=== PATIENT | female | born 1955 | race Caucasian/White ===

== ENCOUNTER → 2020-07-18 14:29 | Outpatient (CLI) | payer BC, SELFPAY ==
--- NOTE | ~2020-07-18 | XR_ITS ---
XR lumbar spine 2-3V DATE: 07/18/2020 14:49 INDICATION: Back pain TECHNIQUE: AP, lateral, coned lateral lumbosacral views COMPARISON: 07/30/2015 lumbar spine FINDINGS: Diffuse osteopenia. There is degenerative spurring of the lower thoracic spine. There is m ild degenerative spurring of the lumbar spine but the lumbar and lumbosacral interspaces are relative ly preserved. Prominent degenerative change at the apophyseal joints in the lower lumbar and lumbosac ral area. No fracture or bone destruction is evident. The included lower thoracic and lumbar pedicles are intac t. The sacroiliac joints are normal. There is extensive calcification of the abdominal aorta and iliac arteries, without apparent aneurysm . IMPRESSION: Degenerative changes Osteopenia Reviewed, dictated and finalized at location B.
--- NOTE | ~2020-07-18 | XR_ITS ---
XR chest 2V DATE: 07/18/2020 14:49 INDICATION: Cough and back pain. No injury. TECHNIQUE: PA and lateral views COMPARISON: 03/22/2016 2 view chest FINDINGS: Normal heart size. No hilar or mediastinal enlargement. No pulmonary infiltrate or consolid ation, pleural effusion or pulmonary vascular congestion or pneumothorax. Degenerative spurring of the thoracic spine. IMPRESSION: No active cardiopulmonary disease Reviewed, dictated and finalized at location B.
== END ==
PROVIDERS: PCP Emergency Medicine; Visit Provider Emergency Medicine
DX: R05 Cough (principal); M54.5 Low back pain; M85.88 Other specified disorders of bone density and structure, other site
CPT/HCPCS: 71046; 72100

== ENCOUNTER 2020-08-29 07:52 | Outpatient (CLI) | payer BC, SELFPAY ==
--- NOTE | ~2020-08-29 | CT_ITS ---
EXAMINATION: CT lung screening DATE: 08/29/2020 10:39 INDICATION: TOBACCO USE TECHNIQUE: Computed tomography (CT) of the chest was performed without intravenous contrast. Addition al 3D reconstructions utilizing coronal maximum intensity projection (MIP) were performed. Automated exposure control and iterative reconstruction technique were employed. The dose-length product was 70 .01 mGy-cm. COMPARISON: None FINDINGS: Minimal emphysema at the right apex. No suspicious pulmonary nodules, pulmonary edema or other pulmon francisco infiltrates, pleural effusion or pneumothorax. Heart size is normal. Atherosclerotic coronary art anitha calcific calcification is. No pericardial effusion. Aortic valve callus calcification. Thoracic a ania is normal in caliber. No pathologically enlarged thoracic lymphadenopathy. 1.5 cm left renal cys t. There are bridging osteophytes at multiple levels in the spine, consistent with diffuse idiopathic skeletal hyperostosis (DISH). IMPRESSION: 1. Lung-RADS category 1: Negative. Continue annual screening with noncontrast low-dose chest CT in 12 months. 2. Minimal emphysema. Reviewed, dictated and finalized at location H. NT RESOLUTION SPECIALIST IMPRESSION: 1. Lung-RADS category 1: Negative. Continue annual screening with noncontrast l ow-dose chest CT in 12 months. 2. Minimal emphysema.
--- NOTE | ~2020-08-29 | DEXA_ITS ---
Bone Density Report Name: Ness Arreaga Age: 65 Sex: Female Ethnicity: White Date of : 1955 Indication: postmenopausal; height loss; Referring Provider: Asif Donald Study: Bone densitometry was performed. Exam Date: August 29, 2020 Accession number: [id number] Bone Density: Region BMD T-score Z-score Classification AP Spine (L1-L4) 0.993 -0.5 1.2 Normal Femoral Neck (Left) 0.700 -1.3 0.1 Osteopenia Total Hip (Left) 0.871 -0.6 0.6 Normal Total Hip Bilateral Avg 0.855 -0.8 0.5 Normal Femoral Neck (Right) 0.613 -2.1 -0.7 Osteopenia Total Hip (Right) 0.837 -0.9 0.3 Normal World Health Organization criteria for BMD impression classify patients as: Normal (T-score at or above -1.0), Osteopenia (T-score between -1.0 and -2.5), or Osteoporosis (T-score at or below -2.5). 10-year Fracture Risk(1): Major Osteoporotic Fracture 10% Hip Fracture 2.5% Reported Risk Factors: [place] (), Neck BMD=0.613, BMI=22.8, smoking (1) FRAX(R) Version 3.08. Fracture probability calculated for an untreated patient. Fracture probability may be lower if the patient has received treatment. Previous Exams: Region Exam Age BMD T-score BMD Change BMD Change Date g/cm2 vs Baseline vs Previous AP Spine(L1-L4) 08/29/2020 65 0.993 -0.5 -0.026(-2.6%)* -0.026(-2.6%)* 08/20/2015 60 1.019 -0.3 Total Hip(Left) 08/29/2020 65 0.871 -0.6 -0.091(-9.4%)* -0.091(-9.4%)* 08/20/2015 60 0.961 0.2 Total Hip(Right) 08/29/2020 65 0.837 -0.9 -0.066(-7.3%)* -0.066(-7.3%)* 08/20/2015 60 0.902 -0.3 *Denotes significance at 95% confidence level, LSC for AP Spine = 0.022 g/cm2, LSC for Total Hip = 0.027 g/cm2 Clinical Information Provided by Patient: Smokes Has used the following medications: Vitamin D, Calcium Patient maximum height was 66 Menopause Age: 42 Drinks caffeinated beverages Onset of menses at age 11 Number of children 2 Impression: The patient has low bone mass, based on the Right Femoral Neck T-score. The patient has an estimated ten-year risk of hip fracture of 2.5% and an estimated ten-year risk of major fracture of 10%, based on the WHO FRAX algorithm. The patient has risk factors, including: smoking. The BMD for the AP Spine(L1-L4) decreased, changing by -2.6% since the last DXA exam. The BMD for the Total Hip(Left) decreased, changing by -9.4% since the last DXA exam. The BMD for the Total Hip(Right) decreased, changing by -7.3% si
--- NOTE | ~2020-08-29 | MM_ITS ---
EXAMINATION: MM screening [facility] BI w geovanna HISTORY: Screening mammogram TECHNIQUE: Craniocaudal and mediolateral oblique 3-D tomosynthesis images were obtained and synthetic 2-D images were generated. CAD analysis was submitted and interpreted. COMPARISON: 09/22/2018, 08/10/2018, 08/20/2015 BREAST PARENCHYMAL COMPOSITION: There are scattered areas of fibroglandular density. FINDINGS: There is no evidence of suspicious mass, calcification, or architectural distortion to sugg est malignancy in either breast. There has been no suspicious interval change. IMPRESSION: 1. No mammographic evidence of malignancy. 2. Recommend routine screening mammography in one year. BI-RADS Category 1: Negative Reviewed, dictated and finalized at location A. RTAKER HELPER
== END 2020-08-29 07:53 | disposition home or self-care (01) ==
PROVIDERS: PCP Emergency Medicine; Visit Provider Emergency Medicine
DX: Z12.31 Encounter for screening mammogram for malignant neoplasm of breast (principal); J45.909 Unspecified asthma, uncomplicated; Z78.0 Asymptomatic menopausal state; M85.852 Other specified disorders of bone density and structure, left thigh; M85.851 Other specified disorders of bone density and structure, right thigh; Z72.0 Tobacco use
CPT/HCPCS: 77063; 77067; 77080; G0297

== ENCOUNTER 2021-09-30 09:18 | Outpatient (CLI) | payer OTHER, SELFPAY ==
--- NOTE | ~2021-09-30 | US_ITS ---
EXAMINATION: US aorta DATE: 09/30/2021 09:49 INDICATION: Extensive calcification of the abdominal aorta, hypertension and diabetes TECHNIQUE: Grayscale, color Doppler, and pulsed Doppler images of the aorta and common iliac arteries were obtained. COMPARISON: None. FINDINGS: Maximum vascular dimensions are as follows: Proximal aorta: 2.7 cm Mid aorta: 1.9 cm Distal aorta: 1.5 cm Right common iliac artery: 1.0 cm Left common iliac artery: 1.1 cm There is no evidence of abdominal aortic aneurysm. IMPRESSION: 1. No sonographic evidence of abdominal aortic aneurysm. Reviewed, dictated and finalized at location A. LEAD ARCHITECT
== END 2021-09-30 09:19 | disposition home or self-care (01) ==
LOC: ANHIMG 09:23
PROVIDERS: PCP Emergency Medicine; Visit Provider Emergency Medicine
DX: I70.0 Atherosclerosis of aorta (principal)
CPT/HCPCS: 76775

== ENCOUNTER 2021-11-13 15:40 | Emergency (ER) | payer OTHER, SELFPAY ==
--- NOTE | ~2021-11-13 | XR_ITS ---
[id number] DATE: 11/13/2021 16:12 INDICATION: Left anterior rib pain following a fall 5 days ago TECHNIQUE: PA chest. 3 views of the left ribs. COMPARISON: 07/18/2022 view chest FINDINGS: Normal heart size. No hilar or mediastinal enlargement. No pulmonary infiltrate or consolidation, pleural effusion or pulmonary vascular congestion or pneumo thorax is detected. Diffuse osteopenia. Diffuse idiopathic skeletal hyperostosis of the thoracic spine. No left rib fracture is evident. IMPRESSION: No detectable left rib fracture Diffuse idiopathic skeletal hyperostosis of the thoracic spine No active cardiopulmonary disease Reviewed, dictated and finalized at Location A. Reviewed, dictated and finalized at location A. COM MANAGER
[2021-11-13 15:53] VITALS: BP 132/65; PULSE 78; RESP 16; TEMP 36.4; O2SAT 99
[2021-11-13 15:55] VITALS: BP 132/65; PULSE 78; RESP 16; TEMP 36.4; O2SAT 99
--- NOTE | 2021-11-13 15:57 | ED.FALL ---
HPI - Fall General Chief Complaint: Fall Stated Complaint: Side Pain Time Seen by Provider: 11/13/21 15:55 Source: patient Mode of arrival: ambulatory Limitations: no limitations History of Present Illness HPI Narrative: Ness Arreaga is a 66 yo female with PMH of OA, HTN, diabetes, high cholesterol, [facility] Doctor's office after a fall over her dog last Tuesday. She has left sided anterior rib pain that is painful on twisting or on deep breath., She is here for an x-ray Related Data Home Medications Medication Instructions Recorded Confirmed acyclovir 11/13/21 alendronate mg PO 11/13/21 amlodipine 11/13/21 glimepiride mg 11/13/21 losartan 11/13/21 paroxetine HCl mg PO 11/13/21 pravastatin 11/13/21 Allergies Allergy/AdvReac Type Severity Reaction Status Date / Time codeine Allergy Unknown Unknown Unverified 11/13/21 15:53 tramadol Allergy Unknown Verified 11/13/21 15:53 Review of Systems Review of Systems: CONSTITUTIONAL: Denies fever, chills, sweats. EYES: Denies visual changes, redness, discharge. ENT: Denies rhinorrhea, congestion, sore throat, otalgia. CARDIOVASCULAR: Denies chest pain, palpitations, edema. RESPIRATORY: Denies dyspnea, wheezing, cough GASTROINTESTINAL: Denies abdominal pain, nausea, vomiting, diarrhea. GENITOURINARY: Denies dysuria, hematuria, abnormal discharge SKIN: Denies rash or itching. NEUROLOGIC: Denies numbness, or focal weakness. PSYCHIATRIC: Denies anxiety or depression. Left-sided anterior chest wall pain PMFSH Past Medical History Medical History Diabetes HTN (hypertension) Osteoarthritis Social History Social History (Updated 11/13/21 @ 16:06 by Sunshine Washington CNP) Smoking status: Former smoker Alcohol intake: current Comments At time of signature, I agree with nursing past medical, surgical, social and family history. There is no relevant family history pertinent to the presenting complaint. Exam Narrative: GENERAL: This is a well-nourished, well-developed patient, in mild distress. HEAD: normocephalic, atraumatic. EYES:. Sclera clear/white. Vis Hearing grossly intact. NOSE: External nose normal without nasal discharge, nares without redness, no rhinorrhea. THROAT: Mucous membranes moist, NECK: Neck supple, CARDIOVASCULAR: Regular rate and rhythm without murmurs, gallops, or rubs. RESPIRATORY: Clear to auscultation. Breath sounds equal bilaterally. She has pain on deep breath, pain on turning, left-sided chest wall pain with palpation GASTROINTESTINAL: Abdomen soft, SKIN: warm, intact with no suspicious lesions or rash, good texture and turgor. NEURO: awake, alert, and oriented to person, place and time. There were no obvious focal neurologic abnormalities. Steady gait EXTREMITIES: Normal range of motion. BACK: Nontender without deformity Course Course Emergency Course: Patient fell of a dog last Tuesday and has left-sided chest wall pain that has not improved with rest heat or ice; saw her PCP who sent her for chest x-ray Chest x-ray shows no rib fracture Started on muscle relaxant and pain meds, started on incentive spirometer Level of Care: Express Care Visit Vital Signs Vital signs: Vital Signs Temperature 97.5 F L 11/13/21 15:53 Pulse Rate 78 11/13/21 15:53 Respiratory Rate 16 11/13/21 15:53 Blood Pressure 132/65 11/13/21 15:53 Pulse Oximetry 99 11/13/21 15:53 Temperature 97.5 F L 11/13/21 15:55 Pulse Rate 78 11/13/21 15:55 Respiratory Rate 16 11/13/21 15:55 Blood Pressure 132/65 11/13/21 15:55 Pulse Oximetry 99 11/13/21 15:55 MDM - Fall Differential Diagnosis Differential diagnosis: Likely other (Costochondritis versus chest wall bruising versus fracture of rib) Critical Care Time Critical Care Time Critical Care Time: No Discharge Plan Discharge Clinical Impression: Costochondritis
== END 2021-11-13 16:43 | disposition home or self-care (01) ==
PROVIDERS: Emergency Provider Nurse Practitioner; PCP Emergency Medicine
DX: M94.0 Chondrocostal junction syndrome [Tietze] (principal); E11.9 Type 2 diabetes mellitus without complications; I10 Essential (primary) hypertension; M19.90 Unspecified osteoarthritis, unspecified site; Z87.891 Personal history of nicotine dependence; E78.00 Pure hypercholesterolemia, unspecified
CPT/HCPCS: 71101; 99213; G0463

== ENCOUNTER → 2022-01-11 14:36 | Outpatient (CLI) | payer OTHER, SELFPAY ==
--- NOTE | ~2022-01-11 | XR_ITS ---
XR chest 2V DATE: 01/11/2022 15:06 INDICATION: Productive cough for weeks. Smoker. TECHNIQUE: PA and lateral views COMPARISON: 09/15/2020 CT lung screening 07/18/2020 2 view chest FINDINGS: Bilateral hyperinflation. No pulmonary infiltrate or consolidation, pleural effusion or pul monary vascular congestion or pneumothorax. Normal heart size. No hilar or mediastinal enlargement. Diffuse idiopathic skeletal hyperostosis of the thoracic spine. IMPRESSION: Bilateral hyperinflation consistent with COPD No active cardiopulmonary disease Reviewed, dictated and finalized at location A.
== END ==
PROVIDERS: PCP Emergency Medicine; Visit Provider Emergency Medicine
DX: R05.8 Other specified cough (principal); R91.8 Other nonspecific abnormal finding of lung field
CPT/HCPCS: 71046

== ENCOUNTER 2022-05-25 11:05 | Emergency (ER) | payer MEDICARE, MEDICAID, SELFPAY ==
--- NOTE | ~2022-05-25 | XR_ITS ---
EXAMINATION: XR chest 2V DATE: 05/25/2022 11:41 INDICATION: Cough and wheezing. TECHNIQUE: Frontal and lateral views of the chest were obtained. COMPARISON: Chest 2 views 01/11/2022 FINDINGS: There is mild scarring at the lung apices. No pleural effusion or pneumothorax. The heart s ize is normal. IMPRESSION: 1. Stable mild scarring at the lung apices. Reviewed, dictated and finalized at location A.
[2022-05-25 11:18] VITALS: BP 157/67; PULSE 88; RESP 20; TEMP 36.3; O2SAT 98
[2022-05-25 11:23] VITALS: BP 157/67; PULSE 88; RESP 20; TEMP 36.3; O2SAT 98
--- NOTE | 2022-05-25 11:26 | ED.URI ---
HPI - URI/Sore Throat General Chief Complaint: Upper Respiratory Infection Stated Complaint: Pain in back, cough Time Seen by Provider: 05/25/22 11:25 Source: patient, RN notes reviewed and old records reviewed Mode of arrival: ambulatory Limitations: no limitations History of Present Illness HPI Narrative: 67-year-old female presents to the [facility] with complaints of cough and right thoracic back pain. Patient states that it feels very similar to when she had post COVID-pneumonia. Patient had COVID mid April. Has been coughing since. Denies fevers, chest pain or abdominal pain. Has a history of diabetes, hypertension. Reports history of asthma and has a nebulizer machine at home. MD elicited complaint: cough Related Data Home Medications Medication Instructions Recorded Confirmed acyclovir 800 mg tablet 800 mg PO DAILY 11/13/21 05/25/22 amlodipine 10 mg tablet 10 mg PO DAILY 11/13/21 05/25/22 glimepiride 2 mg tablet 2 mg PO DAILY 11/13/21 05/25/22 losartan 100 mg tablet 100 mg PO DAILY 11/13/21 05/25/22 paroxetine HCl 20 mg tablet 20 mg PO DAILY 11/13/21 05/25/22 pravastatin 40 mg tablet 40 mg PO DAILY 05/25/22 05/25/22 Allergies Allergy/AdvReac Type Severity Reaction Status Date / Time codeine Allergy Intermediate Hives Verified 05/25/22 11:33 tramadol AdvReac Intermediate Vomiting Verified 05/25/22 11:33 Review of Systems Review of Systems: All systems reviewed & are unremarkable except as noted in HPI and below Constitutional: Constitutional: Reports no additional constitutional complaints, Denies chills and Denies fever(s) Eyes: Eyes: Reports no additional eye complaints ENT: Reports system reviewed and no additional complaints, except as documented Cardiovascular: Cardiovascular: Reports no additional cardiovascular complaints, Denies chest pain and Denies rapid heart rate Respiratory: Respiratory: Reports as per HPI, Reports chest congestion and Reports cough Gastrointestinal: Gastrointestinal: Reports no additional gastrointestinal complaints Musculoskeletal: Musculoskeletal: Reports no additional musculoskeletal complaints Integumentary/Breasts: Skin/Breast: Reports system reviewed and no additional complaints, except as docu Neurologic: Reports system reviewed and no additional complaints, except as documented Psychiatric: Psychiatric: Reports no additional psychiatric complaints Allergic/Immunologic: Allergic/Immunologic: Reports no additional allergic/immunologic complaints PMFSH Past Medical History Medical History Diabetes HTN (hypertension) Osteoarthritis Social History Social History Smoking status: Former smoker Alcohol intake: current Comments At the time of my signature, I reviewed and agree with the nursing past medical, surgical, social, and family history. There is no relevant family history pertinent to the patient complaint. Exam Const: General: healthy appearing, no acute distress and alert Nutritional Appearance: well nourished Orientation/consciousness: patient oriented x3 Limitations: no limitations HENMT: Head: normal to inspection Ears: external ears normal, TM's normal bilaterally and EAC's normal Throat: posterior oropharynx normal Eyes: General: appearance normal, both eyes and all related structures Pupils: Equal, round and reactive pupils present Neck: Neck: normal visual inspection, no lymphadenopathy and no meningeal signs Chest: Chest palpation & inspection: normal inspection of the chest Resp: Effort & Inspection: normal respiratory effort and no use of accessory muscles Auscultation: clear to auscultation bilaterally, no crackles, no rales, rhonchi right lower and wheezes throughout Cardio: Rate: regular rate Rhythm: regular rhythm Back/Spine/Pelvis: Cervical Spine: normal cervical lordosis Thoracic/Lumbar Spine: thoracic and lumba
== END 2022-05-25 12:00 | disposition home or self-care (01) ==
PROVIDERS: Emergency Provider Nurse Practitioner; PCP Emergency Medicine
DX: J20.8 Acute bronchitis due to other specified organisms (principal); U09.9 Post COVID-19 condition, unspecified; E11.9 Type 2 diabetes mellitus without complications; I10 Essential (primary) hypertension; M19.90 Unspecified osteoarthritis, unspecified site; Z87.891 Personal history of nicotine dependence
CPT/HCPCS: 71046; 99213; G0463

== ENCOUNTER 2022-09-14 09:15 | Outpatient (CLI) | payer MEDICARE, MEDICAID, SELFPAY ==
--- NOTE | ~2022-09-14 | CT_ITS ---
EXAMINATION: CT diagnostic chest w con DATE: 09/14/2022 09:56 INDICATION: Lung nodules TECHNIQUE: Computed tomography (CT) of the chest was performed with 75 CC Omnipaque 350 intravenous c ontrast. Automated exposure control and iterative reconstruction technique were employed. Exam dose: 140.40 mGy-cm total exam DLP. COMPARISON: 06/04/2022 PA and lateral chest 08/29/2020 CT lung screening FINDINGS: Stable bilateral mild apical scarring. Mild emphysematous changes of the lungs. No pulmonary infiltrate or consolidation or suspicious pulmonary mass lesion is detected. Normal heart size. Coronary artery calcification. No pericardial or pleural effusion. No thoracic aortic aneurysm or dissection. There is atherosclerotic calcification of the thoracic aor ta or great vessels as well as abdominal aorta. There is prominent calcification at the origins of ce liac and superior mesenteric arteries and particularly at the origins of both renal arteries. No hilar or mediastinal mass lesion or lymphadenopathy. There is diffuse idiopathic skeletal hyperostosis of the thoracic spine. There is severe degenerative disc disease in lower cervical spine. No suspicious osteolytic or osteoblastic lesions are noted. IMPRESSION: Mild emphysema Reviewed, dictated and finalized at Location A. Reviewed, dictated and finalized at location B. GHT FORWARDER IMPRESSION: Mild emphysema
[2022-09-14 09:51] LABS: Estimated Glomerular Filt Rate > 60
== END 2022-09-14 09:16 | disposition home or self-care (01) ==
PROVIDERS: PCP Emergency Medicine; Visit Provider Internal Medicine Hematology & Oncology
DX: R91.8 Other nonspecific abnormal finding of lung field (principal); J43.9 Emphysema, unspecified
CPT/HCPCS: 71260; Q9967

== ENCOUNTER → 2022-09-14 10:19 | Outpatient (CLI) | payer MEDICARE, MEDICAID, SELFPAY ==
--- NOTE | ~2022-09-14 | XR_ITS ---
XR hand RT min 3V DATE: 09/14/2022 10:56 INDICATION: Right hand pain for years TECHNIQUE: 3 views COMPARISON: None FINDINGS: There is osteopenia. There is polyarticular osteoarthritis, involving the first carpometaca rpal joint, first and second metacarpophalangeal and multiple interphalangeal joints. No erosive lozada ge is noted. No recent fracture or dislocation, periosteal reaction or bone destruction is detected. IMPRESSION: Osteopenia Polyarticular osteoarthritis Reviewed, dictated and finalized at location B. GRINDER
--- NOTE | ~2022-09-14 | XR_ITS ---
EXAM: XR shoulder RT min 2V, XR humerus RT DATE: 09/14/2022 10:56 HISTORY: right upper extremity pain for 5 years . COMPARISON: None available. FINDINGS: Decreased mineralization. Old healed distal right clavicle fracture. No acute fracture or dislocation. No lytic or blastic lesion. Moderate degenerative AC joint and glenohumeral joint change . No erosion or periosteal change. Soft tissues within normal limits. Elbow joint grossly aligned. IMPRESSION: Moderate degenerative AC joint and glenohumeral joint change. Reviewed, dictated and finalized at location K. WARE DEVELOPMENT ENGINEER IMPRESSION: Moderate degenerative AC joint and glenohumeral joint change.
== END ==
PROVIDERS: PCP Emergency Medicine; Visit Provider Emergency Medicine
DX: M25.511 Pain in right shoulder (principal); M79.621 Pain in right upper arm; M85.841 Other specified disorders of bone density and structure, right hand; M15.9 Polyosteoarthritis, unspecified
CPT/HCPCS: 73030; 73060; 73130

== ENCOUNTER 2022-11-02 11:40 | Outpatient (CLI) | payer MEDICARE, MEDICAID, SELFPAY ==
--- NOTE | ~2022-11-02 | US_ITS ---
EXAMINATION: US thyroid DATE: 11/02/2022 12:24 INDICATION: Left thyroid nodule. TECHNIQUE: Multiple ultrasound images of the thyroid were obtained. COMPARISON: None. FINDINGS: The right thyroid lobe measures 5.2 x 1.8 x 1.5 cm. The left thyroid lobe measures 4.5 x 1.7 x 1.3 c m. In the left thyroid lobe, there is a 2.1 cm solid, hypoechoic, wider than tall nodule with smooth margin without echogenic foci (TI-RADS TR4). In the right thyroid lobe, there is a 12 mm solid, isoe choic, wider than tall nodule with ill-defined margin and peripheral calcification (TR4). IMPRESSION: 1. Multinodular goiter. Ultrasound-guided fine-needle aspiration of the left thyroid nodule is recomm ended. Reviewed, dictated and finalized at location A. MOLOGY PROFESSOR IMPRESSION: 1. Multinodular goiter. Ultrasound-guided fine-needle aspiration of the left th yroid nodule is recommended.
== END 2022-11-02 11:41 | disposition home or self-care (01) ==
PROVIDERS: PCP Emergency Medicine; Visit Provider Emergency Medicine
DX: E04.2 Nontoxic multinodular goiter (principal)
CPT/HCPCS: 76536

== ENCOUNTER 2022-12-01 12:57 | Emergency (ER) | payer MEDICARE, MEDICAID, SELFPAY ==
[2022-12-01 13:07] VITALS: BP 154/80; PULSE 96; RESP 16; TEMP 36.8; O2SAT 97
--- NOTE | 2022-12-01 13:21 | ED.UPPEXIN ---
HPI - Extremity Injury (Upper) General Chief Complaint: Extremity Injury, Upper Stated Complaint: Right Arm/ Shoulder Pain Time Seen by Provider: 12/01/22 13:21 Source: patient Mode of arrival: ambulatory Limitations: no limitations History of Present Illness HPI narrative: 67-year-old female presents with complaint of chronic pain to her right shoulder. Patient reports over the last several weeks her right shoulder pain has been worse. States that she has not had any transportation to get to a doctor's office to be seen until today. She called her primary care doctor office today and it is close. She has no technical operations specialist and may eventually get a surgery but states she was unable to contact anyone at the orthopedic office. She states in the past she has test her primary care physician for pain medication and he states that he does not give pain medication . She states that she is taking ibuprofen and Tylenol with no relief of pain. She is also using Aspercreme. All systems reviewed and negative except as noted above. Related Data Home Medications Medication Instructions Recorded Confirmed acyclovir 800 mg tablet 800 mg PO DAILY 11/13/21 05/25/22 amlodipine 10 mg tablet 10 mg PO DAILY 11/13/21 05/25/22 glimepiride 2 mg tablet 2 mg PO DAILY 11/13/21 05/25/22 losartan 100 mg tablet 100 mg PO DAILY 11/13/21 05/25/22 paroxetine HCl 20 mg tablet 20 mg PO DAILY 11/13/21 05/25/22 pravastatin 40 mg tablet 40 mg PO DAILY 05/25/22 05/25/22 budesonide 160 mcg-glycopyr 9 inh inhalation 12/01/22 mcg-formot 4.8 mcg/actuation HFA inhaler (Breztri Aerosphere) Allergies Allergy/AdvReac Type Severity Reaction Status Date / Time codeine Allergy Intermediate Hives Verified 12/01/22 13:00 tramadol AdvReac Intermediate Vomiting Verified 12/01/22 13:00 Review of Systems Review of Systems: CONSTITUTIONAL: Denies fever, chills, or sweats. EYES: Denies visual changes, redness, or discharge. ENT: Denies rhinorrhea, congestion, sore throat, or otalgia. CARDIOVASCULAR: Denies chest pain, palpitations, or edema. RESPIRATORY: Denies cough or dyspnea. GASTROINTESTINAL: Denies abdominal pain, nausea, vomiting, or diarrhea. GENITOURINARY: Denies dysuria or hematuria. SKIN: Denies rash or itching. MUSCULOSKELETAL: Denies back pain, joint pain, or myalgia. Reports right shoulder pain. NEUROLOGIC: Denies headache, numbness, or weakness. PSYCHIATRIC: Denies anxiety or depression. All other systems reviewed are negative, except as documented in HPI. [facility] Past Medical History Medical History Cataract Diabetes HTN (hypertension) Osteoarthritis Surgical History Surgical History S/P epidural steroid injection Social History Social History (Updated 11/29/22 @ 10:38 by Eri Haines MA) Smoking status: Light tobacco smoker Alcohol intake: current Lack of Transportation: No Lack of Food: Often True Current Housing: I Have Housing Concerned About Future Housing: No Difficulty Paying Gas/Electric Bills: YES Difficulty Paying for Meds: No Currently Unemployed: Decline to Answer Education: High School Diploma/GED Difficulty w/ Childcare or Family Care: No Gender identity (if verbalized by the patient): Female Sexual Orientation (if Verbalized by the Patient): Straight or Heterosexual Comments At time of signature, agree with nursing past medical, surgical, social and family history. There is no relevant family history pertinent to the presenting complaint. Exam Narrative: GENERAL: This is a well-nourished, well-developed patient, in no apparent distress. HEAD: normocephalic, atraumatic. EYES: PERRL. Sclera clear/white. Vision is grossly intact. EARS: External ears normal NOSE: External nose normal NECK: Neck supple, non-tender without lymphadenopathy, masses or thyromegaly. CARDIOVASC
== END 2022-12-01 13:36 | disposition home or self-care (01) ==
PROVIDERS: Emergency Provider Nurse Practitioner Family; PCP Emergency Medicine
DX: G89.29 Other chronic pain (principal); M25.511 Pain in right shoulder; F17.200 Nicotine dependence, unspecified, uncomplicated; E11.9 Type 2 diabetes mellitus without complications; I10 Essential (primary) hypertension; M19.90 Unspecified osteoarthritis, unspecified site; H26.9 Unspecified cataract
CPT/HCPCS: 99213; G0463

== ENCOUNTER 2022-12-28 10:44 | Outpatient (CLI) | payer MEDICARE, MEDICAID, SELFPAY ==
--- NOTE | ~2022-12-28 | MM_ITS ---
EXAMINATION: MM screening priscilla BI w geovanna HISTORY: Screening mammogram TECHNIQUE: Craniocaudal and mediolateral oblique 3-D tomosynthesis images were obtained and synthetic 2-D images were generated. CAD analysis was submitted and interpreted. COMPARISON: 08/29/2020 bilateral screening mammogram 09/22/2018 diagnostic left mammogram and limited left breast ultrasound examination, reported benign 08/10/2018 bilateral screening mammogram BREAST PARENCHYMAL COMPOSITION: There are scattered areas of fibroglandular density. FINDINGS: There is no evidence of suspicious mass, calcification, or architectural distortion to sugg est malignancy in either breast. There has been no suspicious interval change. IMPRESSION: 1. No mammographic evidence of malignancy. 2. Recommend routine screening mammography in one year. BI-RADS Category 1: Negative Reviewed, dictated and finalized at location A.
--- NOTE | ~2022-12-28 | US_ITS ---
EXAMINATION: US carotid duplex BI DATE: 12/28/2022 12:13 INDICATION: Dizziness. Carotid atherosclerosis. TECHNIQUE: Grayscale, color Doppler, and pulsed Doppler images of the cervical carotid arteries were obtained. The degree of vessel stenosis is placed in one of the following categories: normal, <50%, 5 0-69%, >=70% but less than near-occlusion, near-occlusion, or total occlusion. Note that percent sten osis relative to normal distal artery lumen diameter is indirectly measured from velocity measurement s as described by Obed, et al. Radiology 2003; 229:340-346. COMPARISON: None. FINDINGS: RIGHT: The right common carotid artery (CCA) peak systolic velocity (PSV) is 83 cm/s. The right internal car otid artery (ICA) PSV is 207 cm/s. The right ICA end-diastolic velocity (EDV) is 49 cm/s. The right I CA/CCA PSV ratio is 2.5. Grayscale and color Doppler images yield an estimate of 50-69% diameter redu ction from plaque in the ICA. The external carotid artery (ECA) PSV is 281 cm/s. There is antegrade f low in the right vertebral artery. LEFT: The left CCA PSV is 75 cm/s. The left ICA PSV is 314 cm/s. The left ICA EDV is 61 cm/s. The left ICA/ CCA PSV ratio is 4.2. Grayscale and color Doppler images yield an estimate of >=70% (but less than ne ar occlusion) diameter reduction from plaque in the ICA. The ECA PSV is 70 cm/s. There is antegrade f low in the left vertebral artery. IMPRESSION: 1. 50-69% stenosis in the right internal carotid artery. 2. >=70% (but less than near occlusion) stenosis in the left internal carotid artery. Reviewed, dictated and finalized at location L. IMPRESSION: 1. 50-69% stenosis in the right internal carotid artery. 2. >=70% (but less than near occlusion) stenosis in the left internal carotid a rtery.
--- NOTE | ~2022-12-28 | DEXA_ITS ---
Bone Density Report Name: TERE ISSA Age: 67 Sex: Female Ethnicity: White Date of : 1955 Indication: postmenopausal; screening for osteoporosis; height loss; asthma or emphysema; Referring Provider: Reji DYER Study: Bone densitometry was performed. Exam Date: December 28, 2022 Accession number: [id number] Bone Density: Region BMD T-score Z-score Classification AP Spine(L1-L4) 1.003 -0.4 1.4 Normal Femoral Neck (Left) 0.701 -1.3 0.2 Osteopenia Total Hip (Left) 0.863 -0.6 0.6 Normal Femoral Neck (Right) 0.611 -2.1 -0.6 Osteopenia Total Hip (Right) 0.829 -0.9 0.3 Normal Total Hip Mean 0.846 -0.8 0.5 Normal World Health Organization criteria for BMD impression classify patients as: Normal (T-score at or above -1.0), Osteopenia (T-score between -1.0 and -2.5), or Osteoporosis (T-score at or below -2.5). 10-year Fracture Risk(1): Major Osteoporotic Fracture 11% Hip Fracture 3.1% Reported Risk Factors: [place] (), Neck BMD=0.611, BMI=21.5, smoking (1) FRAX(R) Version 3.08. Fracture probability calculated for an untreated patient. Fracture probability may be lower if the patient has received treatment. Previous Exams: Region Exam Age BMD T-score BMD Change BMD Change Date g/cm2 vs Baseline vs Previous AP Spine (L1-L4) 12/28/2022 67 1.003 -0.4 -0.016 (-1.6%) 0.010 (1.0%) 08/29/2020 65 0.993 -0.5 -0.026 (-2.6%) -0.026 (-2.6%) 08/20/2015 60 1.019 -0.3 Total Hip(Left) 12/28/2022 67 0.863 -0.6 -0.098 (-10.2% -0.007 (-0.8%) 08/29/2020 65 0.871 -0.6 -0.091 (-9.4%) -0.091 (-9.4%) 08/20/2015 60 0.961 0.2 Total Hip(Right) 12/28/2022 67 0.829 -0.9 -0.073 (-8.1%) -0.008 (-0.9%) 08/29/2020 65 0.837 -0.9 -0.066 (-7.3%) -0.066 (-7.3%) 08/20/2015 60 0.902 -0.3 *Denotes significance at 95% confidence level, LSC for AP Spine = 0.022 g/cm2, LSC for Total Hip = 0.027 g/cm2 Clinical Information Provided by Patient: Smokes Has used the following medications: Vitamin D, Calcium Has the following medical conditions: Asthma or Emphysema Patient maximum height was 66 Menopause Age: 42 Onset of menses at age 11 Number of children 2 Impression: The patient has low bone mass, based on the Right Femoral Neck T-score. The patient has an estimated ten-year risk of hip fracture of 3.1% and an estimated ten-year risk of major fracture of 11%, based on the WHO FRAX algorithm. T
[2022-12-28 12:39] LABS: Basophils Percent Auto 0.5 % (0.2-1.2); Eosinophils Absolute Auto 0.1 K/mm3 (0-0.3); Eosinophils Percent Auto 1.7 % (0-4.4); Hematocrit 45.4 % (37.0-47.0); Hemoglobin 14.6 g/dL (12.0-15.0); Immature Granulocyte Absolute 0.03 K/mm3 (0.00-0.031); Immature Granulocyte Percent A 0.4 % (0-0.5); Lymphocytes Absolute Auto 2.12 K/mm3 (0.9-3.2); Mean Corpuscular HGB Conc 32.2 g/dl (32-36); Mean Corpuscular Hemoglobin 30.9 pg (26-34); Mean Corpuscular Volume 96.2 fl (80-100); Mean Platelet Volume 11.3 fl (7.4-10.4); Monocytes Absolute Auto 0.6 K/mm3 (0.1-0.6); Monocytes Percent Auto 7.5 % (2.6-8.5); Neutrophils Absolute Auto 5.2 K/mm3 (1.3-6.7); Neutrophils Percent Auto 63.9 % (45.5-73.1); Platelet Count Result 296 k/mm3 (150-375); Red Blood Count 4.72 M/mm3 (4.2-5.4); Red Cell Distribution Width 13.6 % (11.5-14.5); White Blood Count 8.2 K/mm3 (4.5-10.0)
[2022-12-28 13:03] LABS: Alanine Aminotransferase 30 U/L (6-35); Albumin Level 4.7 g/dL (3.5-5.1); Alkaline Phosphatase 100 U/L (38-126); Anion Gap 5 mmol/L (8-16); Aspartate Amino Transferase 32 U/L (14-36); Bilirubin,Total 0.6 mg/dL (0.2-1.3); Blood Urea Nitrogen 13 mg/dL (7-17); Calcium 9.5 mg/dL (8.4-10.2); Carbon Dioxide 31 mmol/L (22-30); Chloride 105 mmol/L (98-107); Estimated Glomerular Filt Rate > 60; Glucose 143 mg/dL (65-110); Sodium 141 mmol/L (137-145)
[2022-12-28 13:56] LABS: Folic Acid > 20.0 ng/mL (2.76->20)
--- NOTE | 2022-12-29 13:16 | WPDNEUROLOGY ---
Neurology EEG Report General Information Date of Study: 12/28/22 TEST Routine EEG DIAGNOSIS Amnesia, loss of consciousness CONDITION OF RECORDING Awake, drowsy EEG NUMBER [id number] CLINICAL HISTORY Patient reports she has had five episodes of loss of consciousness. No warning signs before the episode, and she feels fine afterwards. EEG DESCRIPTION During the awake state with eyes closed the background consists of 10 Hz posterior dominant rhythm which attenuates appropriately with eye opening. The recording is continuous. There is a well developed anterior-posterior gradient. No significant asymmetries of background activities are noted. With drowsiness there is waxing and waning of the dominant rhythm with eventual replacement by a mixture of beta, alpha, and theta activity. Patient did not enter stage II sleep. There are no epileptiform discharges or seizures during this recording. Photic stimulation did not elicit any abnormal photoparoxysmal response. IMPRESSION This is a normal routine EEG recorded in awake and drowsy states. There are no electrographic seizures identified, nor are there any epileptiform discharges. Please note that a normal EEG cannot exclude a seizure disorder. Clinical correlation is recommended.
== END 2022-12-28 10:45 | disposition home or self-care (01) ==
PROVIDERS: Psychiatry & Neurology Neurology; PCP Emergency Medicine; Visit Provider Emergency Medicine
DX: Z12.31 Encounter for screening mammogram for malignant neoplasm of breast (principal); Z78.0 Asymptomatic menopausal state; R41.3 Other amnesia; R42 Dizziness and giddiness; M85.852 Other specified disorders of bone density and structure, left thigh; M85.851 Other specified disorders of bone density and structure, right thigh; I65.23 Occlusion and stenosis of bilateral carotid arteries
CPT/HCPCS: 36415; 77063; 77067; 77080; 80053; 82607; 82746; 84443; 85025; 93880; 95816

== ENCOUNTER 2023-01-25 16:47 | Outpatient (CLI) | payer MEDICARE, MEDICAID, SELFPAY ==
--- NOTE | ~2023-01-25 | MR_ITS ---
MRI of the cervical spine Clinical History: Radiculopathy Technique: Axial T2-weighted and gradient images, and sagittal T1-weighted, T2-weighted, and STIR argenis ges were acquired. Findings: There is no fracture or subluxation of cervical spine. Vertebral bodies maintain normal hei ght and alignment. No suspicious bone marrow signal abnormality seen. There are extensive anterior ma rginal osteophytes from C2 through C6. At C2-C3, there is no disc bulge or herniation posteriorly. There is mild facet joint degenerative ch dwayne. No spinal canal stenosis or cord compression. Possible minimal bilateral neural foraminal narro wing. At C3-C4, there is no significant disc bulge or herniation. No spinal canal stenosis, cord compressio n, or neural foraminal narrowing. At C4-C5, there is minimal disc bulge. No spinal canal stenosis, cord compression, or neural foramina l narrowing. At C5-C6, there is minimal disc osteophyte complex. No spinal canal stenosis or cord compression. Pro bable mild right neural foraminal narrowing. Left neural foramen preserved. At C6-C7, there is no disc bulge or herniation. No spinal canal stenosis, cord compression, or neural foraminal narrowing. No abnormal signal seen in the spinal cord. Paravertebral soft tissues are unremarkable. Impression: Extensive anterior marginal osteophytes throughout the cervical spine, as noted above. Minimal degenerative spondylosis otherwise, as detailed above. No canal stenosis or cord compression evident. Reviewed, dictated and finalized at [facility]. Impression: Extensive anterior marginal osteophytes throughout the cervical spine, as noted above. Minimal degenerative spondylosis otherwise, as detailed above. No canal stenosi s or cord compression evident.
== END 2023-01-25 16:48 | disposition home or self-care (01) ==
PROVIDERS: PCP Emergency Medicine
DX: M47.22 Other spondylosis with radiculopathy, cervical region (principal)
CPT/HCPCS: 72141

== ENCOUNTER 2023-03-18 08:04 | Outpatient (CLI) | payer MEDICARE, MEDICAID, SELFPAY ==
--- NOTE | ~2023-03-18 | XR_ITS ---
Right Shoulder Technique: AP and scapular Y views were obtained. Clinical History: Pain Findings: No fracture or dislocation is seen. Osseous alignment is anatomic. There is mild to moderat e AC joint degenerative change. Minimal glenohumeral joint degenerative change noted. Soft tissues ar e unremarkable. Impression: Degenerative changes, as above. Reviewed, dictated and finalized at location M. Impression: Degenerative changes, as above.
--- NOTE | ~2023-03-18 | CT_ITS ---
Clinical Indication: Pulmonary nodules CT Scan of the Chest with Contrast: Technique: Contiguous sections were acquired throughout the chest after intravenous administration of 75 cc of Omnipaque 350. Dose reduction technique was used on this scan by utilizing automated exposu re control and iterative reconstruction technique. The dose-length product (DLP) was 142.02 mGy-cm. COMPARISON: 09/14/2022, 08/29/2020 Findings: There is no evidence of any significant mediastinal, hilar or axillary lymphadenopathy. There is no f illing defect in the pulmonary arterial tree to suggest pulmonary embolus. There is no evidence of ao rtic dissection or aneurysm. There is no evidence of pleural or pericardial effusion. The lungs are clear. No pulmonary nodules or infiltrates are noted. Minimal emphysematous change note d. Images through the upper abdomen reveal no abnormalities. DISH of the thoracic spine noted. Impression: Minimal emphysema. No pulmonary nodules seen. Reviewed, dictated and finalized at [facility]. Impression: Minimal emphysema. No pulmonary nodules seen.
[2023-03-18 08:54] LABS: Estimated Glomerular Filt Rate > 60
== END 2023-03-18 08:05 | disposition home or self-care (01) ==
PROVIDERS: PCP Emergency Medicine; Referring Provider Pain Medicine Pain Medicine; Visit Provider Internal Medicine Hematology & Oncology
DX: M19.011 Primary osteoarthritis, right shoulder (principal); R91.8 Other nonspecific abnormal finding of lung field
CPT/HCPCS: 71260; 73030; Q9967

== ENCOUNTER → 2023-06-21 14:16 | Outpatient (CLI) | payer MEDICARE, MEDICAID, SELFPAY ==
--- NOTE | ~2023-06-21 | XR_ITS ---
EXAMINATION: XR chest 2V DATE: 06/22/2023 08:11 INDICATION: Cough TECHNIQUE: PA and lateral views of the chest were obtained. COMPARISON: Chest CT dated 03/18/2023 FINDINGS: Mild hyperexpansion of lungs consistent with mild emphysema which is better appreciated on prior CT. No focal airspace opacities, pulmonary edema, pleural effusion or pneumothorax. Heart size is normal. Mild to moderate thoracic spondylosis. IMPRESSION: 1. Mild emphysema. No other acute cardiopulmonary disease. Reviewed, dictated and finalized at location A.
== END ==
PROVIDERS: PCP Emergency Medicine; Visit Provider Emergency Medicine
DX: R05.9 Cough, unspecified (principal); J43.9 Emphysema, unspecified
CPT/HCPCS: 71046

== ENCOUNTER 2023-07-28 15:44 | Outpatient (CLI) | payer MEDICARE, MEDICAID, SELFPAY ==
[2023-07-28 16:04] LABS: Basophils Percent Auto 0.4 % (0.2-1.2); Eosinophils Absolute Auto 0.1 K/mm3 (0-0.3); Eosinophils Percent Auto 1.1 % (0-4.4); Hematocrit 41.1 % (37.0-47.0); Hemoglobin 13.5 g/dL (12.0-15.0); Immature Granulocyte Absolute 0.03 K/mm3 (0.00-0.031); Immature Granulocyte Percent A 0.4 % (0-0.5); Lymphocytes Percent Auto 26.1 % (18.3-44.2); Mean Corpuscular HGB Conc 32.8 g/dl (32-36); Mean Corpuscular Hemoglobin 31.3 pg (26-34); Mean Corpuscular Volume 95.1 fl (80-100); Mean Platelet Volume 11.5 fl (7.4-10.4); Monocytes Absolute Auto 0.6 K/mm3 (0.1-0.6); Neutrophils Absolute Auto 5.2 K/mm3 (1.3-6.7); Platelet Count Result 302 k/mm3 (150-375); Red Blood Count 4.32 M/mm3 (4.2-5.4); Red Cell Distribution Width 13.1 % (11.5-14.5)
[2023-07-28 16:09] LABS: Blood Urea Nitrogen 28 mg/dL (8-26); Carbon Dioxide 25 mmol/L (22-30); Chloride 106 mmol/L (98-109); Estimated Glomerular Filt Rate > 60; Glucose 136 mg/dL (70-105); Ionized Calcium (POC) 1.19 mmol/L (1.11-1.31); Potassium 4.6 mmol/L (3.5-4.9); Sodium 141 mmol/L (138-146)
[2023-07-28 16:48] LABS: Alanine Aminotransferase 19 U/L (6-35); Albumin Level 4.5 g/dL (3.5-5.1); Alkaline Phosphatase 80 U/L (38-126); Anion Gap 10 mmol/L (8-16); Aspartate Amino Transferase 25 U/L (14-36); Bilirubin,Total 0.4 mg/dL (0.2-1.3); Blood Urea Nitrogen 28 mg/dL (7-17); Calcium 9.7 mg/dL (8.4-10.2); Carbon Dioxide 23 mmol/L (22-30); Chloride 105 mmol/L (98-107); Estimated Glomerular Filt Rate > 60; Glucose 137 mg/dL (65-110); Potassium 4.6 mmol/L (3.4-5.0); Sodium 138 mmol/L (137-145)
== END 2023-07-28 15:45 | disposition home or self-care (01) ==
LOC: ANHLAB 15:49
PROVIDERS: PCP Emergency Medicine; Visit Provider Internal Medicine Hematology & Oncology
DX: R91.8 Other nonspecific abnormal finding of lung field (principal)
CPT/HCPCS: 36415; 80047; 80053; 85025

== ENCOUNTER 2024-04-07 11:06 | Outpatient (CLI) | payer MEDICARE, MEDICAID, SELFPAY ==
--- NOTE | ~2024-04-07 | CT_ITS ---
EXAMINATION:CT lung screening DATE: 04/07/2024 11:55 INDICATION: Personal history of tobacco dependence. Current smoker with 40 pack year history. TECHNIQUE: Computed tomography (CT) of the chest was performed without intravenous contrast. Automate d exposure control and iterative reconstruction technique were employed. The dose-length product (DLP ) was 69.05 mGy-cm. COMPARISON: Chest CT 03/18/2023 FINDINGS: There is mild emphysema. There is mild scarring at the lung apices. There is mild atelectas is bilaterally. There is mild scarring in paraspinal right lower lobe. No pleural effusion. The heart size is normal. There are coronary artery calcifications. No pericardial effusion. There is mild tho racic spondylosis. IMPRESSION: 1. Lung-RADS category 2: Benign appearance or behavior. Continue annual screening with noncontrast lo w-dose chest CT in 12 months. Reviewed, dictated and finalized at location E. IMPRESSION: 1. Lung-RADS category 2: Benign appearance or behavior. Continue annual screeni ng with noncontrast low-dose chest CT in 12 months.
== END 2024-04-07 11:07 | disposition home or self-care (01) ==
PROVIDERS: PCP Emergency Medicine; Visit Provider Internal Medicine Hematology & Oncology
DX: Z12.2 Encounter for screening for malignant neoplasm of respiratory organs (principal); Z87.891 Personal history of nicotine dependence
CPT/HCPCS: 71271

== ENCOUNTER 2024-07-09 13:31 | Outpatient (CLI) | payer MEDICARE, MEDICAID, SELFPAY ==
--- NOTE | ~2024-07-09 | MM_ITS ---
EXAMINATION: MM screening priscilla BI w geovanna HISTORY: Screening TECHNIQUE: Craniocaudal and mediolateral oblique 3-D tomosynthesis images were obtained and synthetic 2-D images were generated. CAD analysis was submitted and interpreted. COMPARISON: Comparison to multiple prior studies sequentially, with oldest reviewed study dated 11/28. BREAST PARENCHYMAL COMPOSITION: . Not dense: There are scattered areas of fibroglandular density. FINDINGS: There is no evidence of suspicious mass, calcification, or architectural distortion to sugg est malignancy in either breast. There has been no suspicious interval change. IMPRESSION: 1. No mammographic evidence of malignancy. 2. Recommend routine screening mammography in one year. BI-RADS Category 1: Negative Reviewed, dictated and finalized at location B.
== END 2024-07-09 13:32 | disposition home or self-care (01) ==
LOC: ANHIMG 13:35
PROVIDERS: PCP Emergency Medicine; Visit Provider Emergency Medicine
DX: Z12.31 Encounter for screening mammogram for malignant neoplasm of breast (principal)
CPT/HCPCS: 77063; 77067

== ENCOUNTER 2024-08-08 12:34 | Outpatient (CLI) | payer MEDICARE, MEDICAID, SELFPAY ==
--- NOTE | ~2024-08-08 | US_ITS ---
EXAMINATION: US THYROID BIOPSY DATE: 08/08/2024 15:22 CDT INDICATION: Enlarged left thyroid lobe nodule TECHNIQUE: The procedure for biopsy of the thyroid nodule and its benefits and risks were explained to the patie nt. Potential risk included were not limited to bleeding, infection, and nondiagnostic specimen. The neck was prepped and draped in the usual sterile manner. 3 cc 1% lidocaine was used for local an esthesia. [3 passes were made with a 25G needle into the left thyroid lesion. Appropriate needle lo cation was documented with continuous sonographic guidance. The specimens were passed to the cytopat hologist in the room. All needles were removed and a sterile bandage applied over the biopsy site. The patient tolerated t he procedure without immediate complications or complaints. FINDINGS: Subsequent images demonstrate needles advanced into the lesion for biopsy. IMPRESSION: 1. Successful ultrasound guided biopsy of a left sided thyroid nodule. Please refer to pathology re port for final histologic analysis. Reviewed, dictated and finalized at location A. IMPRESSION: 1. Successful ultrasound guided biopsy of a left sided thyroid nodule. Please refer to pathology report for final histologic analysis.
== END 2024-08-08 12:35 | disposition home or self-care (01) ==
LOC: ANHIMG 12:36
PROVIDERS: PCP Emergency Medicine; Visit Provider Otolaryngology
DX: E04.1 Nontoxic single thyroid nodule (principal)
CPT/HCPCS: 10005; 88172; 88173; 88305

== ENCOUNTER 2025-02-11 13:40 | Emergency (ER) | payer MEDICARE, SELFPAY ==
[2025-02-11] VITALS (9 sets, daily range): BP systolic 123–129; BP diastolic 60–76; PULSE 80–108; RESP 16–20; TEMP 36.3–37; O2SAT 96–97
--- NOTE | ~2025-02-11 | XR_ITS ---
EXAMINATION: XR chest 2V Exam Date/Time: 02/11/2025 16:07 CDT HISTORY: cough, SOB Comparison: 06/21/2023; CT lung screening 04/07/2024. RESULT: Lines, tubes, and devices: None. Lungs and pleura: Mild coarse reticulonodular opacities. No focal consolidation, pleural effusion, o r pneumothorax. Cardiomediastinal silhouette: Stable. Other: No acute osseous or upper abdominal finding. IMPRESSION: Mild pulmonary opacities likely representing a combination of emphysematous change and respiratory br onchiolitis. Reviewed, dictated and finalized at location K. IMPRESSION: Mild pulmonary opacities likely representing a combination of emphysematous yanna nge and respiratory bronchiolitis.
--- NOTE | 2025-02-11 15:15 | ED.SOB ---
HPI - SOB/Dyspnea General Chief Complaint: Shortness of Breath/Dyspnea <Lesa Contreras PA-C - Last Filed: 02/12/25 12:58> Stated Complaint: SOB, N/V/D <Lesa Contreras PA-C - Last Filed: 02/12/25 12:58> Time Seen by Provider: 02/11/25 15:15 <Lesa Contreras PA-C - Last Filed: 02/12/25 12:58> Focused HPI: This is a 69 year old female that presents to the ER for respiratory symptoms. Reports she has been sick for a week. Reports productive cough, fever, diarrhea, vomiting. GENERAL: Well-appearing, well-nourished, and in no acute distress. HEAD: Normocephalic, atraumatic. CHEST: No respiratory distress. Mild expiratory wheezing HEART: Regular rate and rhythm.? NEURO: ?Alert and oriented x3. Patient screened in triage and initial orders placed.? ?Additional care and disposition to be based upon?diagnostic testing and treatment. <Lesa Contreras PA-C - Last Filed: 02/12/25 12:58> History of Present Illness HPI Narrative: I agree with the above HPI Patient reports he does have a significant smoking history. Patient smoked for approximately 50 years but has not smoked for the last 3 years. <Zach Sparks MD - Last Filed: 02/12/25 21:17> Related Data Home Medications: Home Medications ?Medication ?Instructions ?Recorded ?Confirmed ?Last Taken ?Type acyclovir 800 mg tablet 800 mg PO DAILY 11/13/21 07/30/23 Unknown History amlodipine 10 mg tablet 10 mg PO DAILY 11/13/21 07/30/23 Unknown History glimepiride 2 mg tablet 2 mg PO DAILY 11/13/21 07/30/23 Unknown History budesonide 160 mcg-glycopyr 9 inh inhalation 12/01/22 07/30/23 Unknown History mcg-formot 4.8 mcg/actuation HFA inhaler (Breztri Aerosphere) calcium 600 mg (as 1 tablet PO DAILY 07/28/23 07/30/23 Unknown History carbonate)-vitamin D3 5 mcg (200 unit) tablet clopidogrel 75 mg tablet 75 mg PO DAILY 07/28/23 07/30/23 Unknown History <Lesa Contreras PA-C - Last Filed: 02/12/25 12:58> Allergies/Adverse Reactions: Allergies Allergy/AdvReac Type Severity Reaction Status Date / Time codeine Allergy Intermediate Hives Verified 02/11/25 18:48 tramadol AdvReac Intermediate Vomiting Verified 02/11/25 18:48 <Lesa Contreras PA-C - Last Filed: 02/12/25 12:58> Review of Systems Review of Systems: All systems reviewed & are unremarkable except as noted in HPI and below <Zach Sparks MD - Last Filed: 02/12/25 21:17> PMFSH Past Medical History Medical History: Medical History Cataract HTN (hypertension) Diabetes Osteoarthritis <Lsea Contreras PA-C - Last Filed: 02/12/25 12:58> Surgical History Surgical History: Surgical History S/P epidural steroid injection <Lesa Contreras PA-C - Last Filed: 02/12/25 12:58> Social History Social History: Social History Smoking status: Light tobacco smoker Alcohol intake: current Do You Feel Safe in your Home?: Yes Lack of Transportation: No Lack of Food: Often True Current Housing: I Have Housing Concerned About Future Housing: No Difficulty Paying Gas/Electric Bills: YES Difficulty Paying for Meds: No Currently Unemployed: Decline to Answer Education: High School Diploma/GED Difficulty w/ Childcare or Family Care: No Gender identity (if verbalized by the patient): Female Sexual Orientation (if Verbalized by the Patient): Straight or Heterosexual <Lesa Contreras PA-C - Last Filed: 02/12/25 12:58> Exam Narrative: APPEARANCE: Well appearing, no pain, no distress, well-nourished. HEAD: normocephalic, atraumatic. EYES: PERRLA/EOMI, conjunctivae clear. NOSE: Normal no drainage EARS:TMS clear with good light reflex. THROAT: Pharynx clear, no exudate. NECK: Supple. No adenopathy, no masses. RESPIRATORY: Expiratory wheeze CARDIOVASCULAR: Regular rate and rhythm without murmurs rubs or gallops. ABDOMINAL: Soft, nontender, nondistended, normal bowel sounds MUSCULOSKELETAL: Moves all extremities. Strength/ROM intact, No edema, No calf tenderness. NEURO: Alert. Cranial nerves II through XII intact. Grossly intact SKIN: Warm, dry. Normal Color <Zach Sparks MD - Last Filed: 02/12/25 21:17> Course Vital Signs Vital signs: Vital Signs Temperature 98.6 F 02/11/25 14:08 Pulse Rate 108 H 02/11/25 14:08 Respiratory Rate 19 02/11/25 14:08 Blood Pressure 124/60 02/11/25 14:08 Pulse Oximetry 96 02/11/25 14:08 Oxygen Delivery Room Air 02/11/25 14:08 Temperature 97.8 F 02/11/25 21:21 Pulse Rate 93 02/11/25 21:21 Respiratory Rate 17 02/11/25 21:21 Blood Pressure 123/76 02/11/25 21:21 Pulse Oximetry 96 02/11/25 21:21 Oxygen Delivery Room Air 02/11/25 19:51 Fraction of Inspired Oxygen 02/11/25 19:51 <Lesa Contreras PA-C - Last Filed: 02/12/25 12:58> Vital Signs Temperature 98.6 F 02/11/25 14:08 Pulse Rate 108 H 02/11/25 14:08 Respiratory Rate 19 02/11/25 14:08 Blood Pressure 124/60 02/11/25 14:08 Pulse Oximetry 96 02/11/25 14:08 Oxygen Delivery Room Air 02/11/25 14:08 Temperature 97.8 F 02/11/25 21:21 Pulse Rate 93 02/11/25 21:21 Respiratory Rate 17 02/11/25 21:21 Blood Pressure 123/76 02/11/25 21:21 Pulse Oximetry 96 02/11/25 21:21 Oxygen Delivery Room Air 02/11/25 19:51 Fraction of Inspired Oxygen 21 02/11/25 19:51 <Zach Sparks MD - Last Filed: 02/12/25 21:17> MDM - SOB/Dyspnea MDM Narrative Medical decision making narrative: 69-year-old female presents emergency department for evaluation for worsening shortness of breath. Patient did feel improved after the breathing treatment. X-ray showed Mild pulmonary opacities likely representing a combination of emphysematous change and respiratory bronchiolitis. Patient was started on steroids and treated with antibiotics for possible underlying COPD exacerbation/pneumonia. All questions concerns were addressed patient was comfortable plan for discharge and close follow-up. <Zach Sparks MD - Last Filed: 02/12/25 21:17> Differential Diagnosis Differential diagnosis: Likely acute exacerbation of chronic obstructive airways disease, community acquired pneumonia and other <Zach Sparks MD - Last Filed: 02/12/25 21:17> Lab Data Attestation: I reviewed the patient's lab results. <Zach Sparks MD - Last Filed: 02/12/25 21:17> Result diagrams: 02/11/25 17:30 02/11/25 17:30 <Lesa Contreras PA-C - Last Filed: 02/12/25 12:58> Labs: Lab Results 02/11/25 02/11/25 Range/Units 17:30 20:50 WBC 16.3 H (4.5-10.0) K/mm3 RBC 4.12 L (4.2-5.4) M/mm3 Hgb 12.2 (12.0-15.0) g/dL Hct 38.9 (37.0-47.0) % MCV 94.4 (80-100) fl MCH 29.6 (26-34) pg MCHC 31.4 L (32-36) g/dl RDW 15.0 H (11.5-14.5) % Plt Count 600 H D (150-375) k/mm3 MPV 10.1 (7.4-10.4) fl Immature Gran % (Auto) 2.1 H (0-0.5) % Neut % (Auto) 83.2 H (45.5-73.1) % Lymph % (Auto) 8.2 L (18.3-44.2) % Sanders % (Auto) 5.9 (2.6-8.5) % Eos % (Auto) 0.2 (0-4.4) % Baso % (Auto) 0.4 (0.2-1.2) % Lymph # (Auto) 1.34 (0.9-3.2) K/mm3 Sanders # (Auto) 1.0 H (0.1-0.6) K/mm3 Eos # (Auto) 0.0 (0-0.3) K/mm3 Baso # (Auto) 0.1 (0.0-0.1) K/mm3 Abs Immat Gran (auto) 0.34 H (0.00-0.031) K/mm3 Absolute Neuts (auto) 13.6 H (1.3-6.7) K/mm3 Absolute Nucleated RBC 0.000 (0.0-0.012) K/mm3 Nucleated RBC % 0.0 (0.0-0.2) % Sodium 139 (137-145) mmol/L Potassium 3.0 L (3.4-5.0) mmol/L Chloride 98 (98-107) mmol/L Carbon Dioxide 31 H (22-30) mmol/L Anion Gap 10 (4-12) mmol/L BUN 13 D (7-17) mg/dL Creatinine 1.13 H (0.7-1.0) mg/dL Estim Creat Clear Calc 34 ml/min Estimated GFR 48 L (59 - ) Glucose 189 H (65-110) mg/dL Calcium 9.5 (8.4-10.2) mg/dL Total Bilirubin 0.6 (0.2-1.3) mg/dL AST 35 (14-36) U/L ALT 47 H (6-35) U/L Alkaline Phosphatase 114 (38-126) U/L Total Protein 8.0 (6.3-8.2) g/dL Albumin 4.1 (3.5-5.1) g/dL Urine Color Yellow (Yellow) Urine Appearance Cloudy H (Clear) Urine pH 7.5 (5.0-9.0) Ur Specific Viola 1.005 (1.001-1.035) Urine Protein 2+ H (Negative) mg/dL Urine Glucose (UA) Negative (Negative) mg/dL Urine Ketones Negative (Negative) mg/dL Ur Blood (Man) Non-hemolyzed trace H (Negative) Urine Nitrate Negative (Negative) Urine Bilirubin Negative (Negative) Urine Urobilinogen 0.2 (<2.0) mg/dL Add Ur Microanalysis Reviewed Leukocyte Esterase Rfl Negative (Negative) VERONIQUE/UL Urine RBC 0-2 (0-2) /hpf Urine WBC 0-5 (0-3) /hpf Ur Squamous Epith Cells Occasional (Few) /hpf Urine Bacteria None seen /hpf Urine Casts 6-10 Granular Casts Present (None) /lpf Influenza A (RT-PCR) Negative (Negative) Influenza B (RT-PCR) Negative (Negative) RSV (RT-PCR) Negative (Negative) SARS-CoV-2 RNA (RT-PCR) Negative (Negative) <Lesa Contreras PA-C - Last Filed: 02/12/25 12:58> Lab Results 02/11/25 02/11/25 Range/Units 17:30 20:50 WBC 16.3 H (4.5-10.0) K/mm3 RBC 4.12 L (4.2-5.4) M/mm3 Hgb 12.2 (12.0-15.0) g/dL Hct 38.9 (37.0-47.0) % MCV 94.4 (80-100) fl MCH 29.6 (26-34) pg MCHC 31.4 L (32-36) g/dl RDW 15.0 H (11.5-14.5) % Plt Count 600 H D (150-375) k/mm3 MPV 10.1 (7.4-10.4) fl Immature Gran % (Auto) 2.1 H (0-0.5) % Neut % (Auto) 83.2 H (45.5-73.1) % Lymph % (Auto) 8.2 L (18.3-44.2) % Sanders % (Auto) 5.9 (2.6-8.5) % Eos % (Auto) 0.2 (0-4.4) % Baso % (Auto) 0.4 (0.2-1.2) % Lymph # (Auto) 1.34 (0.9-3.2) K/mm3 Sanders # (Auto) 1.0 H (0.1-0.6) K/mm3 Eos # (Auto) 0.0 (0-0.3) K/mm3 Baso # (Auto) 0.1 (0.0-0.1) K/mm3 Abs Immat Gran (auto) 0.34 H (0.00-0.031) K/mm3 Absolute Neuts (auto) 13.6 H (1.3-6.7) K/mm3 Absolute Nucleated RBC 0.000 (0.0-0.012) K/mm3 Nucleated RBC % 0.0 (0.0-0.2) % Sodium 139 (137-145) mmol/L Potassium 3.0 L (3.4-5.0) mmol/L Chloride 98 (98-107) mmol/L Carbon Dioxide 31 H (22-30) mmol/L Anion Gap 10 (4-12) mmol/L BUN 13 D (7-17) mg/dL Creatinine 1.13 H (0.7-1.0) mg/dL Estim Creat Clear Calc 34 ml/min Estimated GFR 48 L (59 - ) Glucose 189 H (65-110) mg/dL Calcium 9.5 (8.4-10.2) mg/dL Total Bilirubin 0.6 (0.2-1.3) mg/dL AST 35 (14-36) U/L ALT 47 H (6-35) U/L Alkaline Phosphatase 114 (38-126) U/L Total Protein 8.0 (6.3-8.2) g/dL Albumin 4.1 (3.5-5.1) g/dL Urine Color Yellow (Yellow) Urine Appearance Cloudy H (Clear) Urine pH 7.5 (5.0-9.0) Ur Specific Viola 1.005 (1.001-1.035) Urine Protein 2+ H (Negative) mg/dL Urine Glucose (UA) Negative (Negative) mg/dL Urine Ketones Negative (Negative) mg/dL Ur Blood (Man) Non-hemolyzed trace H (Negative) Urine Nitrate Negative (Negative) Urine Bilirubin Negative (Negative) Urine Urobilinogen 0.2 (<2.0) mg/dL Add Ur Microanalysis Reviewed Leukocyte Esterase Rfl Negative (Negative) VERONIQUE/UL Urine RBC 0-2 (0-2) /hpf Urine WBC 0-5 (0-3) /hpf Ur Squamous Epith Cells Occasional (Few) /hpf Urine Bacteria None seen /hpf Urine Casts 6-10 Granular Casts Present (None) /lpf Influenza A (RT-PCR) Negative (Negative) Influenza B (RT-PCR) Negative (Negative) RSV (RT-PCR) Negative (Negative) SARS-CoV-2 RNA (RT-PCR) Negative (Negative) <Zach Sparks MD - Last Filed: 02/12/25 21:17> Imaging Data Radiologist's impression: ITS Impressions Chest X-Ray 02/11/25 16:14 IMPRESSION: Mild pulmonary opacities likely representing a combination of emphysematous change and respiratory bronchiolitis. <Lesa Contreras PA-C - Last Filed: 02/12/25 12:58> Discharge Plan Discharge Clinical Impression: Pneumonia Qualifiers: Pneumonia type: due to unspecified organism Laterality: unspecified laterality Lung location: unspecified part of lung Qualified Code(s): J18.9 - Pneumonia, unspecified organism COPD (chronic obstructive pulmonary disease) Qualifiers: COPD type: unspecified COPD Qualified Code(s): J44.9 - Chronic obstructive pulmonary disease, unspecified <Lesa Contreras PA-C - Last Filed: 02/12/25 12:58> Patient Disposition: Home <Lesa Contreras PA-C - Last Filed: 02/12/25 12:58> Condition: Stable <Lesa Contreras PA-C - Last Filed: 02/12/25 12:58> Instructions: Antibiotic Form <Lesa Contreras PA-C - Last Filed: 02/12/25 12:58> Additional Instructions: Antibiotic as directed until completed. Prednisone as directed for the next 5 days. Albuterol as needed for shortness of breath. Tessalon Perles for cough. Have close follow-up with your primary care physician. If you have any worsening symptoms then please call or return to the emergency department. <Lesa Contreras PA-C - Last Filed: 02/12/25 12:58> Patient Language: Filipino <Lesa Contreras PA-C - Last Filed: 02/12/25 12:58> Prescriptions: New azithromycin 250 mg tablet See Rx Instructions .ROUTE .COMPLEX Qty: 6 0RF Rx Instructions: For 250 mg dose pack: take 500 mg today (day 1), then 250 mg for 4 days (days 2-5) amoxicillin-pot clavulanate 875-125 mg tablet 1 tablet PO Q12H 7 Days Qty: 14 0RF prednisone 50 mg tablet 50 mg PO DAILY 5 Days Qty: 5 0RF albuterol sulfate 1.25 mg/3 mL solution for nebulization 1.25 mg inhalation Q4H Qty: 75 0RF benzonatate 100 mg capsule 100 mg PO TID PRN (Reason: cough) Qty: 14 0RF No Action acyclovir 800 mg tablet 800 mg PO DAILY glimepiride 2 mg tablet 2 mg PO DAILY amlodipine 10 mg tablet 10 mg PO DAILY Breztri Aerosphere 160-9-4.8 mcg/actuation HFA aerosol inhaler INHALATION albuterol sulfate 90 mcg/actuation HFA aerosol inhaler 2 puff inhalation QID PRN (Reason: shortness of breath or wheezing) Qty: 6.7 0RF calcium carbonate-vitamin D3 600 mg-5 mcg (200 unit) tablet 1 tablet PO DAILY clopidogrel 75 mg tablet 75 mg PO DAILY pravastatin 40 mg tablet 40 mg PO DAILY Qty: 90 3RF losartan 100 mg tablet 100 mg PO DAILY Qty: 30 11RF <Lesa Contreras PA-C - Last Filed: 02/12/25 12:58> Follow-up/Referrals: Asif Donald MD [Primary Care Provider] - <Lesa Contreras PA-C - Last Filed: 02/12/25 12:58>
--- NOTE | 2025-02-11 15:16 | ECG_ITS ---
Test Date: 2025-02-11 17:25:48 Measurements Intervals [place] Rate: 101 P: 83 MN: 136 QRS: 45 QRSD: 78 T: 89 QT: 346 QTc: 449 Interpretive Statements SINUS TACHYCARDIA POSSIBLE LEFT ATRIAL ENLARGEMENT POSSIBLE RIGHT VENTRICULAR CONDUCTION DELAY ANTEROSEPTAL INFARCT, AGE INDETERMINATE BORDERLINE T WAVE ABNORMALITY- HIGH LATERAL LEADS BASELINE ARTIFACT- I, II, III, AVR, AVL, AVF ABNORMAL ECG No previous ECG available for comparison Electronically Signed On 02-11-2025 19:47:27 CDT by Kirk Peck D.O.
--- OUTSIDE RECORDS SUMMARY | 2025-02-11 15:30 | XMS_ITS | Clinical Summary ---
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 Name Role Phone Asif Donald MD Primary Care Provider [phone] Allergies Active Allergy Reactions Criticality Noted Date Comments Codeine Itching,Hives 10/27/2015 Other reaction(s): Unknown Tramadol Itching,Nausea And Vomiting,Rash Medium 06/29/2018 rash/itching rash/itching Medications alendronate (FOSAMAX) 10 MG tablet 1 daily 0 07/21/2016 Active glimepiride (AMARYL) 2 MG tablet 0 03/29/2015 Active aspirin (ASPIR-LOW) 81 MG EC tablet 1 daily 0 08/17/2017 Active budesonide-form oterol (SYMBICORT) 80-4.5 MCG/ACT inhaler 2 bid as needed 0 08/17/2017 Active acyclovir (ZOVIRAX) 400 MG tablet 1 BID 04/02/2015 Active losartan (COZAAR) 100 MG tablet 0 03/29/2015 Active cholecalciferol (VITAMIN D3 HIGH POTENCY) 1000 units capsule 1 dialy 0 07/21/2016 Active amLODIPine (NORVASC) 10 MG tablet Take 10 mg by mouth 1 (one) time each day 0 03/23/2019 Active acyclovir (ZOVIRAX) 800 MG tablet Take 800 mg by mouth 1 (one) time each day 3 03/22/2019 Active albuterol HFA (PROVENTIL HFA) 108 (90 Base) MCG/ACT inhaler every 4 hours Active loratadine (CLARITIN) 10 MG tablet 10 mg daily Active diphenhydrAMINE (BENADRYL) 25 MG tablet Take 25 mg by mouth every 6 (six) hours if needed Active pravastatin (PRAVACHOL) 40 MG tablet Take 1 tablet (40 mg total) by mouth 1 (one) time each day 90 tablet 3 09/21/2021 Active PARoxetine (PAXIL) 30 MG tablet TAKE 1 TABLET BY MOUTH ONCE DAILY IN THE MORNING 04/22/2022 Active Active Problems Problem Noted Date Diagnosed Date Sacroiliitis 11/18/2017 Arthropathy of lumbar facet joint 09/01/2017 Dyslipidemia 02/07/2017 Type 2 diabetes mellitus without complication Bence Har[place] proteinuria 04/02/2015 Essential (primary) hypertension 04/02/2015 Pain in joint 04/02/2015 Resolved Problems Problem Noted Date Diagnosed Date Resolved Date Hyperlipidemia 04/02/2015 05/01/2022 Immunizations Immunization Administration Dates Next Due Influenza (IM) Preservative Free 07/22/2016,07/17 Influenza TIV (IM) 08/17/2021 Influenza, Injectable, Quadrivalent, Preservativ e Free 08/30/2019,07/09/2018 Pneumococcal Conjugate 08/17/2018 Pneumococcal Polysaccharide 07/09/2018 Family History Medical History Relation Comments Cerebrovascular accident Mother Diabetes mellitus Mother Kidney disease Neg Hx Kidney stone Neg Hx Relation Status Comments Mother Social History Tobacco Use Types Packs/Day Years Used Date Smoking Tobacco: Light Smoker Smokeless Tobacco: Never Alcohol Use Standard Drinks/Week Comments Not Currently 0 (1 standard drink = 0.6 oz pur e alcohol) Comments Unknown Sex and Gender Information Value Date Recorded Sex Assigned at Not on file Legal Sex Female 7:48 AM MST Gender Identity Not on file Sexual Orientation Not on file Last Filed Vital Signs Vital Sign Reading Time Taken Comments Blood Pressure 136/60 05/05/2022 11:28 AM CDT Pulse 72 05/05/2022 11:28 AM CDT Temperature 36.4 C (97.5 F) 05/05/2022 11:28 AM CDT Respiratory Rate - - Oxygen Saturation - - Inhaled Oxygen Concentration - - Weight 60.8 kg (134 lb) 05/05/2022 11:28 AM CDT Height 165.1 cm (5' 5 ) 05/05/2022 11:28 AM CDT Body Mass Index 22.3 05/05/2022 11:28 AM CDT Plan of Treatment Health Maintenance Due Date Last Done Comments Pneumococcal PPSV23/PCV13 65 + Years / Low and Medium Risk (2 of 4 - PCV) 07/09/2019 07/09/2018 Influenza Vaccine (Season Ended) 2025 08/17/2021, 08/30/2019, 07/09/2018, Additional history exists Insurance [place] [employer] Care 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
--- OUTSIDE RECORDS SUMMARY | 2025-02-11 15:30 | XMS_ITS | Referral Summary ---
Author Organization [facility] Address [address] [place] [address] Care Team Providers Care Fixing Carpenter Name Role Phone García Park MD Unavailable [phone] Terrance Pollard MD Unavailable Talat Walsh MD Unavailable [phone] Asif Donald MD Primary Care Provider [phone] Antonio Donaldson MD Unavailable [phone] Hugo Nunez MD Unavailable [phone] Encounters Date Type Department Care Team Description 01/22/2025 Orders Only [facility] Vascular and Vein Surgery [address] [place] [phone] Hugo Nunez MD Left toe amputee (Primary Dx) 01/22/2025 8:45 AM CDT Office Visit [facility] Vascular and Vein Surgery [address] [place] [phone] Hugo Nunez MD Gangrene (HCC) (Primary Dx) 01/15/2025 Documentation [facility] Medical [facility] Vascular and Vein Surgery [address] [place] [phone] Karen Wang MA 01/15/2025 Telephone [facility] Vascular and Vein Surgery [address] [place] [phone] Michelle Tamez 01/09/2025 Telephone [facility] Medical [facility] Vascular and Vein Surgery [address] [phone] Hugo Nunez MD 01/04/2025 Telephone [facility] Vascular and Vein Surgery [address] [place] [phone] Elly Worthington 12/25/2024 Telephone [facility] Vascular and Vein Surgery [address] [place] [phone] Hugo Nunez MD Need verbal order for OT, PT, intermediate 12/19/2024 6:53 AM FICTION AND NONFICTION PROSE WRITER - 12/20/2024 5:31 PM [facility] Hospital Encounter [facility] [address] [address] Hugo Nunez MD Yaganti, Srinivasarao C., MD Elizondo, Daniel Elias, MD Gangrene of toe of left foot (HCC) (Primary Dx); 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; Other disorder of circulatory system; Gangrene (HCC); Acute postoperative pain of left foot; Peripheral vascular disease; Essential (primary) hypertension; Type 2 diabetes mellitus with hyperglycemia, without long-term current use of insulin (HCC); Diabetic peripheral neuropathy associated with type 2 diabetes mellitus ([facility]); Mixed hyperlipidemia; Chronic obstructive pulmonary disease, unspecified COPD type ([facility]); Normocytic hypochromic anemia; Anxiety and depression Discharge Disposition: Discharge to home, home health skilled care 12/19/2024 8:55 AM FICTION AND NONFICTION PROSE WRITER - 12/19/2024 10:20 AM FICTION AND NONFICTION PROSE WRITER Surgery [facility] OR [address] [place] [phone] Hugo Nunez MD LEFT FIRST AND SECOND TOE AMPUTATION 12/19/2024 9:02 AM FICTION AND NONFICTION PROSE WRITER Anesthesia Event [facility] OR [address] [place] [phone] Ender Sarah MD Bond, Jory Steven, MD 11/29/2024 Documentation [facility] Medical [facility] Vascular and Vein Surgery [address] [place] [phone] Cindy Mann MA 11/29/2024 8:00 AM FICTION AND NONFICTION PROSE WRITER Orders Only [facility] 2 Wound Care [address] [facility] [address] [place] [address] Ulcer of left lower extremity, unspecified ulcer stage (HCC) from Last 3 Months Allergies Active Allergy Reactions Criticality Noted Date Comments Codeine Sulfate Itching,Nausea & Vomiting Medium 06/14 Tramadol Hcl Rash Medium 06/14/2019 rash/itching Medications losartan (COZAAR) 100 mg tablet Take 1 tablet (100 mg total) by mouth daily Active glimepiride (AMARYL) 2 mg tablet Take 1 tablet (2 mg total) by mouth daily Active amLODIPine (NORVASC) 10 mg tablet Take 1 tablet (10 mg total) by mouth daily Active acyclovir (ZOVIRAX) 800 mg tablet Take 1 tablet (800 mg total) by mouth nightly Active calcium carbonate-vitamin D3 1500 mg (600 mg elemental) -200 units per tablet Take 2 tablets by mouth daily 07/21/20 16 Active budesonide-glycopy r-formoterol (Breztri Aerosphere) 160-9-4.8 mcg/actuation HFA aerosol inhaler Inhale 2 puffs 2 (two) times a day 10/04/20 22 Active alendronate (FOSAMAX) 70 mg tablet Take 1 tablet (70 mg total) by mouth once a week wednesdays02/09/20 23 Active clopidogreL (PLAVIX) 75 mg tablet Take 1 tablet (75 mg total) by mouth daily 30 tablet 1 08/22/20 24 Active Additional Information Patient taking differently:75 mg oralNightly, Informant: Self, Reported on 12/19/2024 aspirin 81 mg enteric coated tablet Take 1 tablet (81 mg total) by mouth daily 30 tablet 1 08/22/20 24 Active senna-docusate (PERICOLACE) 8.6-50 mg Take 1 tablet by mouth 2 (two) times a day 60 tablet 08/22/20 24 Active polyethylene glycol (MIRALAX) 17 gram/dose bulk powder Take 17 g by mouth daily as needed (constipation) 510 g 08/22/20 24 Active ondansetron ODT (ZOFRAN-ODT) 4 mg disintegrating tablet Take 1 tablet (4 mg total) by mouth every 6 (six) hours as needed for nausea or vomiting 20 tablet 08/22/20 24 Active naloxone (NARCAN) 4 mg/actuation spray,non-aerosol Administer 1 spray into affected nostril(s) as needed for opioid reversal or respiratory depression Call 911. Administer a single spray in one nostril. Repeat every 3 minutes as needed if no or minimal response. 1 each 08/28/20 24 Active acetaminophen (TYLENOL) 325 mg tablet Take 2 tablets (650 mg total) by mouth every 6 (six) hours as needed for pain Active gabapentin (NEURONTIN) 100 mg capsule Take 2 capsules (200 mg total) by mouth 3 (three) times a day for 10 days 60 capsule 11/29/19 25 Active pravastatin (PRAVACHOL) 40 mg tablet Take 1 tablet (40 mg total) by mouth nightly Active inhalat.spacing dev,large mask (Space Chamber with Large Mask) spacer Inhale 1 Other as directed Active multivitamin with minerals tablet Take 1 tablet by mouth daily Active HYDROcodone-acetam inophen (NORCO) 5-325 mg per tabletIndications: Pain Take 1 tablet by mouth every 6 (six) hours as needed for pain 25 tablet 12/21/19 25 Active PARoxetine (PAXIL) 40 mg tabletIndications: Anxiety with Depression Take 1 tablet (40 mg total) by mouth every morning 30 tablet 3 12/22/19 25 025 Active albuterol HFA (PROVENTIL HFA,VENTOLIN HFA,PROAIR HFA) 90 mcg/actuation inhalerIndications :Bronchospasm Prevention,Chronic Obstructive Pulmonary Disease Inhale 1 puff every 4 (four) hours as needed for shortness of breath or wheezing 1 each 3 12/21/19 25 Active ramelteon (ROZEREM) 8 mg tabletIndications: Sleep-Onset Insomnia Take 1 tablet (8 mg total) by mouth nightly as needed for sleep 30 tablet 3 12/21/19 25 025 Active Active Problems Problem Noted Date Diagnosed Date Gangrene 12/24/2024 Gangrene of toe of left foot 12/20/2024 Type 2 diabetes mellitus wit h hyperglycemia, without long-term current use of insulin 12/20/2024 Chronic obstructive pulmonary disease 12/20/2024 Normocytic hypochromic anemia 12/20/2024 Anxiety and depression 12/20/2024 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 First and 2nd tips of the toes is demarcated continue Betadine paint and referred to [facility] for further management of chronic ulcer left foot. Follow up 1 month. Peripheral vascular disease 05/30/2024 Diabetic peripheral neuropat hy associated with type 2 diabetes mellitus 05/10/2024 Screening for AAA (aortic abdominal aneurysm) Assessment & Plan (05/10/2024 12:37 PM CDT): Patient has an extensive smoking history with no previous screening for AAA. Plan: Obtain abdominal aortic duplex to screen for AAA we will call with the results. Multiple pulmonary nodules 04/12/2023 Carotid artery calcification, left 03/21/2023 MURPHY (dyspnea on exertion) 02/16/2023 Multinodular goiter 12/15/2022 Thyroid nodule 12/15/2022 Abnormal PFT 06/16/2022 Cigarette nicotine dependenc e with nicotine-induced disorder 06/16/2022 Assessment & Plan (11/21/2022 9:12 PM FICTION AND NONFICTION PROSE WRITER): Patient with history of tobacco abuse who is a current everyday 3-5 cigarettes per day smoker. I had a greater than 3 minute discussion with the patient on the importance of smoking cessation and the negative affects on their cardiovascular health. Patient understands importance of cessation. COVID-19 06/16/2022 Marijuana abuse 06/16/2022 Physical deconditioning 06/16/2022 Sacroiliitis 11/18/2017 Arthropathy of lumbar facet joint 09/01/2017 Unspecified atherosclerosis of other type of bypass graft(s) of the extremities, right leg 05/26/2017 Infection following procedure 05/13/2017 Type 2 diabetes mellitus wit hout complication, without long-term current use of insulin 02/07/2017 Assessment & Plan (07/06/2024 10:33 AM CDT): Type 2 diabetes chronic controlled. Continue current medical management. Tobacco abuse 02/07/2017 Overview (06/14/2019): Quit smoking in November 2017 Assessment & Plan (01/26/2023 3:34 PM CDT): Patient continues to smoke. Greater than 3 minutes was spent on smoking cessation and Education. Different modalities were discussed. She hopes to quit within the next 3-6 months. Assessment & Plan (08/14/2019 5:17 PM CDT): Patient unfortunately again started smoking. Greater than 3 minutes was spent discussing the absolute need for continued smoking cessation. Different modalities were discussed and she plans to quit within 3 months period Assessment & Plan (07/18/2019 2:12 PM CDT): Impression: Patient states she continues to smoke occasionally. I counseled the patient for greater than 5 minutes on the importance of smoking cessation and the negative affects on her overall cardiovascular health. Plan: Patient plans to schedule an appointment with her primary care physician to discuss smoking cessation treatment options. Essential (primary) hypertension 02/07/2017 Assessment & Plan (06/06/2024 12:29 PM CDT): Hypertension chronic controlled. Continue current medical management. Assessment & Plan (11/10/2023 11:08 AM FICTION AND NONFICTION PROSE WRITER): Impression: Chronic and stable. Plan: Continue losartan and amlodipine Assessment & Plan (08/14/2019 5:17 PM CDT): Per patient blood pressure remains well controlled. Continue current regimen per primary care physician Encounter for pre-operative cardiovascular clear ance 02/07/2017 Dyslipidemia 02/07/2017 Assessment & Plan (11/10/2023 11:08 AM FICTION AND NONFICTION PROSE WRITER): Impression: Chronic and stable. Plan: Continue pravastatin Abnormal EKG 02/07/2017 Overview (06/14/2019): EKG done on 02/07/2017 showed a sinus rhythm with anteroseptal infarct. Age indeterminate PAD (peripheral artery disease) 01/05/2017 Bilateral carotid artery stenosis 12/16/2016 Assessment & Plan (07/06/2024 10:32 AM CDT): Status post left TCAR. Patient doing well continue anti-platelet therapy six- month duplex. Assessment & Plan (06/06/2024 12:29 PM CDT): Status post left TCAR. Continue anti-platelet therapy and ongoing six-month duplex surveillance. Assessment & Plan (05/10/2024 12:36 PM CDT): Bilateral carotid artery stenosis status post left TCAR 2022 continues to be asymptomatic. Has moderate disease to the right ICA. Plan: Follow up in 6 months with a carotid duplex. Continue aspirin and statin therapy. Assessment & Plan (11/10/2023 11:06 AM FICTION AND NONFICTION PROSE WRITER): Impression: Patient is status post left TCAR. Patent stent is noted to left internal carotid artery and moderate stenosis noted to the right internal carotid artery seen on carotid duplex. She remains asymptomatic. Plan: Continue ongoing risk factor modifications to include dual anti-platelet therapy of aspirin and Plavix. -patient to follow-up in 6 months for re-evaluation with repeat carotid duplex. Assessment & Plan (04/28/2023 12:44 PM CDT): Impression: Patient is status post left trans carotid arterial revascularization. She remains asymptomatic. Surgical incision to right upper fast has healed. Plan: Continue ongoing risk factor modifications to include dual anti-platelet therapy of aspirin and Plavix. -patient to follow-up in 6 months for re-evaluation with repeat carotid duplex. Assessment & Plan (01/26/2023 3:35 PM CDT): Patient has progressive carotid disease bilateral greater than 80%. Patient remains high stroke risk and at this point I have recommended staged TCAR starting with the left. The indications procedure and all associated risks have been explained to the patient in detail. Her questions have been answered she understands and agrees to proceed. Will add Plavix for dual anti-platelet therapy and continue statin. Assessment & Plan (11/21/2022 9:16 PM FICTION AND NONFICTION PROSE WRITER): History of bilateral carotid stenoses. She remains asymptomatic denying any unilateral neurological deficits, slurred speech or amaurosis fugax. Current carotid duplex shows a high-grade stenosis to the left internal carotid measuring greater than 80% with a velocity of 524/145. The right side remains moderate. Discussed the need for CTA for further assessment and briefly discussed the need for possible intervention including a carotid endarterectomy. Plan: Obtain CTA of the carotids return in the next 2 weeks to discuss its results and possible intervention. Assessment & Plan (08/14/2019 5:19 PM CDT): Patient has worsening right internal carotid artery stenosis. Not yet warranting surgical intervention however if any further progression is found likely will require surgical endarterectomy. Carotid disease and risk of stroke was discussed with her in detail in addition to the importance of ongoing risk factor modification. Follow-up 6 months Assessment & Plan (07/18/2019 2:14 PM CDT): Impression: Asymptomatic bilateral moderate internal carotid artery stenoses. Carotid duplex surveillance revealed significant progression of her right internal carotid stenosis that is approaching a high-grade stenosis. Plan: Recommended further evaluation with a CTA of her carotids. Patient follow- up in 2-3 weeks for discussion of test results and potential surgical treatment options. Atherosclerosis of [place] teries of extremities with intermittent claudication, bilateral legs 12/16/2016 Assessment & Plan (11/08/2024 12:40 PM FICTION AND NONFICTION PROSE WRITER): Impression: Patient is status post thrombectomy of left common femoral to TPT bypass graft. Ischemic rest pain to the left lower extremity is resolved. Patient has an open ulceration to the dorsal left foot that continues to heal, decreasing in size. Patient has dry gangrene to the right 1st and 2nd toes that remains stable. Lower extremity arterial duplex reveals a patent bypass graft. Plan: Continue ongoing risk factor modifications. - continue aspirin and Plavix. - continue daily dressing changes to open ulceration with Xeroform, 4 x 4, Kerlix and Ender bandage. - Continue daily dressing changes to dry gangrene of the toes with Betadine paint. - Recommend evaluation With our wound clinic in 1-2 weeks. - Patient to follow-up in 6 months for re-evaluation with repeat lower extremity arterial duplex. Encouraged patient to make a sooner appointment if there is any concerns. Assessment & Plan (07/06/2024 10:32 AM CDT): Bypass graft right lower extremity patent without recurrent symptoms. Occluded left lower extremity. Patient has calf level claudication at this point is tolerable. Had a long discussion we have opted to continue with conservative measures which include exercise, attempts at smoking cessation and ongoing risk factor modification. Follow up 6 months. Assessment & Plan (06/06/2024 12:29 PM CDT): Right lower extremity bypass graft is patent left is occluded and this is known. Patient was increased claudication like symptoms now disabling. I have recommended proceeding with left lower extremity angiogram possible intervention. Procedure indications and all associated risks have been explained. Patient understands and agrees to proceed. Assessment & Plan (05/10/2024 12:35 PM CDT): History bilateral fem-pop continues to have non limiting claudication. Has not had any studies done for some time and did not get them done as previously scheduled back in October. She continues to deny any limiting claudication or ischemic ulcerations. Lower extremities are warm. Plan: Obtain lower extremity arterial duplex and call with the results. Otherwise follow-up in 6 months with a lower extremity arterial duplex. Assessment & Plan (11/10/2023 11:07 AM FICTION AND NONFICTION PROSE WRITER): Impression: Patient has stable non disabling claudication to bilateral lower extremities. No recent lower extremity arterial Doppler is noted. Plan: Recommend lower extremity arterial duplex in 2 weeks. We will call patient with results. -we will also schedule patient for 1 year follow-up with an arterial duplex. Assessment & Plan (08/14/2019 5:19 PM CDT): Patient has claudication symptoms have not recurred following stage lower extremity bypass. She is doing well continue exercise and risk factor modification. Claudication of both lower extremities 7 Assessment & Plan (01/26/2023 3:34 PM CDT): Patient continues to do well following bilateral lower extremity bypass operations. Grafts were patent and she is no recurrence symptoms. Will continue 6 month duplex surveillance and anti-platelet therapy. Assessment & Plan (11/21/2022 9:13 PM FICTION AND NONFICTION PROSE WRITER): History of bilateral lower extremity arterial occlusive disease who is status post right fem-pop 2016 and left fem-pop 2017. Per duplex 11/18/2022 her grafts are open. She denies any claudication or rest pain. She remains compliant with medications. Plan: Return in 1 year for routine surveillance with bilateral lower extremity arterial Dopplers. Assessment & Plan (07/18/2019 2:13 PM CDT): Impression: Stable nondisabling claudication both lower extremities. Her bilateral femoral popliteal artery bypass is remain patent with normal blood flow to both lower extremities on arterial duplex surveillance. Plan: No further surgical treatment currently needed. Recommend ongoing risk factor modifications. Patient to have repeat lower extremity arterial duplex surveillance performed in 6 months. Baltazar Harrington proteinuria 04/02/2015 Hyperlipidemia 04/02/2015 Pain in joint 04/02/2015 Immunizations Immunization Administration Dates Next Due Influenza, Quadrivalent, Spl it, Preservative Free, Intramuscular 08/30/2019,07/09/2018 Influenza, Trivalent, High D ose, Split, Preservative Free, Intramuscular 08/22/2024 Influenza, Trivalent, IM (MDV) 08/17/2021 Influenza, Trivalent, Preser vative Free, Intramuscular 07/22/2016,07/31/2015 Influenza, Unspecified 08/17/2021,2018,07/09/2018,07/29,07/22/2016,07/31/2015 Pneumococcal Conjugate 7-Valent 08/17/2018 Pneumococcal Polysaccharide PPV23 07/09/2018 Social History Tobacco Use Types Packs/Day Years Used Date Smoking Tobacco: Every Day Cigarettes 0.3 57 Started: 11/1967; Last attempted to quit: 08/2023 Smokeless Tobacco: Never Tobacco Cessation:Ready to Q uit: Not Asked; Counseling Given: Not Answered [facility] Utilities Answer Date Recorded In the past 12 months has th e electric, gas, oil, or water company threatened to shut off services in your home? No 12/20/2024 Social Connection and Isolat ion Panel [NHANES] Answer Date Recorded In a typical week, how many times do you talk on the phone with family, friends, or neighbors? More than three times a week 12/20/2024 How often do you get togethe r with friends or relatives? More than three times a week 12/20/2024 How often do you attend chur ch or islam services? Never 12/20/2024 Do you belong to any clubs o r organizations such as christian groups, unions, fraternal or athletic groups, or school groups? No 12/20/2024 How often do you attend meet ings of the clubs or organizations you belong to? Never 12/20/2024 Are you , , di vorced, , never , or living with a partner? Never 12/20/2024 AUDIT-C Answer Date Recorded Q1: How often do you have a drink containing alcohol? Never 12/19/2024 Q2: How many drinks containi ng alcohol do you have on a typical day when you are drinking? Patient does not drink Q3: How often do you have si x or more drinks on one occasion? Never 12/19/2024 Overall Financial Resource Strain (CARDIA) Answe r Date Recorded How hard is it for you to pa y for the very basics like food, housing, medical care, and heating? Not very hard 12/20/2024 PHQ-2 Answer Date Recorded PHQ-2 Total Score (If total score is 3 or more points, staff should administer the PHQ-9) 3 12/20/2024 Hunger Vital Sign Answer Date Recorded Within the past 12 months, y ou worried that your food would run out before you got the money to buy more. Never true 12/21/19 25 Within the past 12 months, t he food you bought just didn't last and you didn't have money to get more. Never true 12/20/2024 PRAPARE - Transportation Answer Date Re corded In the past 12 months, has l ack of transportation kept you from medical appointments or from getting medications? No 03/2025 In the past 12 months, has l ack of transportation kept you from meetings, work, or from getting things needed for daily living? No 12/20/2024 Housing Stability Vital Sign Answer Lloyd e Recorded In the last 12 months, was t here a time when you were not able to pay the mortgage or rent on time? No 03/22/2023 In the last 12 months, how many places have you lived? 1 03/22/2023 In the last 12 months, was t here a time when you did not have a steady place to sleep or slept in a long term (including now)? No 03/22/2023 PHQ-9 Answer Date Recorded PHQ-9 Total Score 15 12/20/2024 Housing Stability Vital Sign Answer Lloyd e Recorded In the last 12 months, was t here a time when you were not able to pay the mortgage or rent on time? No 12/20/2024 In the past 12 months, how m any times have you moved where you were living? 0 12/20/2024 At any time in the [facility], were you homeless or living in a long term (including now)? No 12/20/2024 Personal Safety Answer Date Recorded Have you ever been in or are you currently in a harmful physical or emotional relationship or is someone making you feel afraid or unsafe? Denies 12/19/2024 Comments No Sex and Gender Information Value Date Recorded Sex Assigned at Not on file Legal Sex Female 9:04 AM CDT Gender Identity Not on file Sexual Orientation Not on file Occupation Industry Job Start Date Job End Date retired Not on file Not on file Not on file Last Filed Vital Signs Vital Sign Reading Time Taken Comments Blood Pressure 136/65 12/20/2024 12:45 PM FICTION AND NONFICTION PROSE WRITER Pulse 66 12/20/2024 12:45 PM FICTION AND NONFICTION PROSE WRITER Temperature 36.8 C (98.2 F) 12/20/2024 12:45 PM FICTION AND NONFICTION PROSE WRITER Respiratory Rate 18 12/20/2024 3:23 AM FICTION AND NONFICTION PROSE WRITER Oxygen Saturation 96% 12/20/2024 12:45 PM FICTION AND NONFICTION PROSE WRITER Inhaled Oxygen Concentration - - Weight 53.7 kg (118 lb 6.4 oz) 12/19/2024 7:00 A M FICTION AND NONFICTION PROSE WRITER Height 162.6 cm (5' 4 ) 12/19/2024 7:00 AM FICTION AND NONFICTION PROSE WRITER Body Mass Index 20.32 12/19/2024 7:00 AM FICTION AND NONFICTION PROSE WRITER Plan of Treatment Not on file Medical Devices Implanted Type Area Automatic Pinsetter Adjuster Device Identifier Shelf Expiration Date Model / Serial / Lot [employer] 6mm 80cm 60cm Removable Ring Stretch Thin Wall Graft [id number] - [id number] - [id number] Implanted:Qty: 1 on 08/14/2024 by García Park MD at [facility] Graft Left: Leg [employer] [id number] 12/31/2026 [id number] / [id number] / [employer] Flex 7mm .065in 40mm 57cm Delivery System Angle Tip [id number] - [id number] Implanted:Qty: 1 on 03/21/2023 by García Park MD at [facility] Stent Left: Carotid [employer] [id number] 09/15/2024 [id number] / / [id number] Description:Carotid Artery S tent Procedures Procedure Name Priority Date/Time Associated Diagnosis Comments POCT GLUCOSE DEVICE Routine 12/20/2024 1 2:44 PM FICTION AND NONFICTION PROSE WRITER POCT GLUCOSE DEVICE Routine 12/20/2024 8 :37 AM FICTION AND NONFICTION PROSE WRITER EGFR Routine 12/20/2024 6:57 AM FICTION AND NONFICTION PROSE WRITER DIFFERENTIAL AUTO Routine 12/20/2024 6:5 7 AM FICTION AND NONFICTION PROSE WRITER CBC WITH AUTO DIFFERENTIAL Routine 12/20/2024 6:57 AM FICTION AND NONFICTION PROSE WRITER PHOSPHORUS Routine 12/20/2024 6:57 AM FICTION AND NONFICTION PROSE WRITER MAGNESIUM Routine 12/20/2024 6:57 AM FICTION AND NONFICTION PROSE WRITER COMPREHENSIVE METABOLIC PANEL Routine 12/20/2024 6:57 AM FICTION AND NONFICTION PROSE WRITER HEMOGLOBIN A1C Routine 12/20/2024 6:57 AM FICTION AND NONFICTION PROSE WRITER LIPID PANEL Routine 12/20/2024 6:57 AM FICTION AND NONFICTION PROSE WRITER POCT GLUCOSE DEVICE Routine 12/19/2024 8 :13 PM FICTION AND NONFICTION PROSE WRITER POCT GLUCOSE DEVICE Routine 12/19/2024 5 :44 PM FICTION AND NONFICTION PROSE WRITER POCT GLUCOSE DEVICE Routine 12/19/2024 1 :30 PM FICTION AND NONFICTION PROSE WRITER POCT GLUCOSE DEVICE Routine 12/19/2024 1 0:16 AM FICTION AND NONFICTION PROSE WRITER SURGICAL PATHOLOGY Routine 12/19/2024 9: 26 AM FICTION AND NONFICTION PROSE WRITER Gangrene (HCC) TX AN PROCEDURE PLACEHOLDER Routine 12/19/2024 9:10 AM FICTION AND NONFICTION PROSE WRITER TX AN ELECTIVE SUPRAGLOTTIC AIRWAY Routine 12/19/2024 9:10 AM FICTION AND NONFICTION PROSE WRITER AMPUTATION TOE 12/19/2024 9:02 AM FICTION AND NONFICTION PROSE WRITER PERIPHERAL VASCULAR DISEASE WITH GANGRENE POCT GLUCOSE DEVICE Routine 12/19/2024 7 :41 AM FICTION AND NONFICTION PROSE WRITER EGFR Routine 12/19/2024 7:40 AM FICTION AND NONFICTION PROSE WRITER 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 DIFFERENTIAL AUTO Routine 12/19/2024 7:4 0 AM FICTION AND NONFICTION PROSE WRITER 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 ANTIBODY SCREEN STAT 12/19/2024 7:40 AM FICTION AND NONFICTION PROSE WRITER ABO/RH STAT 12/19/2024 7:40 AM FICTION AND NONFICTION PROSE WRITER TYPE AND SCREEN STAT 12/19/2024 7:40 AM FICTION AND NONFICTION PROSE WRITER APTT Routine 12/19/2024 7:40 AM FICTION AND NONFICTION PROSE WRITER 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 Other disorder of circulatory system PROTIME-INR Routine 12/19/2024 7:40 AM FICTION AND NONFICTION PROSE WRITER 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 CBC WITH AUTO DIFFERENTIAL Routine 12/19/2024 7:40 AM FICTION AND NONFICTION PROSE WRITER 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 COMPREHENSIVE METABOLIC PANEL Routine 12/19/2024 7:40 AM FICTION AND NONFICTION PROSE WRITER 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 from Last 3 Months Results * POCT glucose (12/20/2024 12:44 PM FICTION AND NONFICTION PROSE WRITER) Glucose, POC 126 70 - 199 mg/dL Blood 12/20/2024 12:4 4 PM FICTION AND NONFICTION PROSE WRITER 12/20/2024 12:44 PM FICTION AND NONFICTION PROSE WRITER Julisa Kruse MD LAB POCT ORDERABLES - DEVICE Final Result Performing Organization Address [facility] Co de Phone Number [address] [employer] [place] [address] * POCT glucose (12/20/2024 8:37 AM FICTION AND NONFICTION PROSE WRITER) Glucose, POC 150 70 - 199 mg/dL Blood 12/20/2024 8:37 AM FICTION AND NONFICTION PROSE WRITER 12/20/2024 8:37 AM FICTION AND NONFICTION PROSE WRITER Julisa Kruse MD LAB POCT ORDERABLES - DEVICE Final Result Performing Organization Address City/[facility] Co de Phone Number [address] [place] [address] * eGFR (12/20/2024 6:57 AM FICTION AND NONFICTION PROSE WRITER) eGFR 83 >=60 mL/min/1. 73 m2 Comment: Interpretive Data Reference Interval Normal >/= 90 mL/min/1.73m2 Mildly decreased* 60 - 89 mL/min/1.73m2 Mildly to moderately decreased 45 - 59 mL/min/1.73m2 Moderately to severely decreased 30 - 44 mL/min/1.73m2 Severely decreased 15 - 29 mL/min/1.73m2 Kidney Failure < 15 mL/min/1.73m2 *Relative to young adult level Estimated glomerular filtration rate is determined by the 2020 CKD-EPI equation recommended by the National Kidney Foundation (A Unifying Approach to GFR Estimation: Recommendations of the NKF-ASK Task Force on Reassessing the Inclusion of Race in Diagnosing Kidney Disease, JASN 2020). The CKD-EPI equation should not be used for patients with unstable renal function and has not been validated in children and those over 70. Current interpretive data was last reviewed 2021. Blood 12/20/2024 6:57 AM FICTION AND NONFICTION PROSE WRITER 12/20/2024 7:12 AM FICTION AND NONFICTION PROSE WRITER us Andrew Boyd NP LAB BLOOD ORDERABLES Final R esult [facility] [address] [facility] [place] [address] * Differential, auto (12/20/2024 6:57 AM FICTION AND NONFICTION PROSE WRITER) Neutrophil abs 5.6 1.5 - 6.5 K/cumm Imm gran abs 0.0 0.0 - 0.1 K/cumm [facility] Lymphocyte abs 1.9 0.8 - 3.3 K/cumm [facility] Monocyte abs 0.6 0.2 - 0.8 K/cumm [facility] Eosinophil abs 0.2 0.0 - 0.5 K/cumm [facility] Basophil abs 0.0 0.0 - 0.1 K/cumm [facility] Neutrophil pct 68.0 % [facility] Comment: Interpretive Data Percent cell count reference ranges are not reported, since discordance with absolute values may lead to misinterpretation of CBC data. Current Interpretive Data was last revised on 2018. Imm gran pct 0.2 % [facility] Comment: Interpretive Data Percent cell count reference ranges are not reported, since discordance with absolute values may lead to misinterpretation of CBC data. Current Interpretive Data was last revised on 2018. Lymphocyte pct 22.3 % [facility] Comment: Interpretive Data Percent cell count reference ranges are not reported, since discordance with absolute values may lead to misinterpretation of CBC data. Current Interpretive Data was last revised on 2018. Monocyte pct 6.8 % [facility] Comment: Interpretive Data Percent cell count reference ranges are not reported, since discordance with absolute values may lead to misinterpretation of CBC data. Current Interpretive Data was last revised on 2018. Eosinophil pct 2.3 % [facility] Comment: Interpretive Data Percent cell count reference ranges are not reported, since discordance with absolute values may lead to misinterpretation of CBC data. Current Interpretive Data was last revised on 2018. Basophil pct 0.4 % [facility] Comment: Interpretive Data Percent cell count reference ranges are not reported, since discordance with absolute values may lead to misinterpretation of CBC data. Current Interpretive Data was last revised on 2018. Blood 12/20/2024 6:57 AM FICTION AND NONFICTION PROSE WRITER 12/20/2024 7:12 AM FICTION AND NONFICTION PROSE WRITER us Andrew Boyd WEB CONTENT [employer] SOCIAL MEDIA MANAGER LAB BLOOD ORDERABLES Final R esult [place] [address] [facility] [place] [address] * (ABNORMAL) CBC with auto differential (12/20/2024 6:57 AM FICTION AND NONFICTION PROSE WRITER) WBC 8.3 3.8 - 9.9 K/cumm Hgb 11.4(L) 11.9 - 15.5 g/dL [facility] Hct 36.9 35.6 - 45.5 % [facility] Plt 241 150 - 400 K/cumm [facility] MPV 11.1 9.1 - 12.3 fL [facility] RBC 3.90 3.90 - 5.20 M/cumm [facility] MCV 94.6 81.3 - 96.4 fL [facility] MCH 29.2 27.1 - 33.3 pg [facility] MCHC 30.9(L) 32.3 - 35.7 g/dL [facility] RDW CV 15.9(H) 11.1 - 14.9 % [facility] RDW SD 55.1(H) 35.7 - 48.1 fL [facility] NRBC abs 0.00 0.00 - 0.01 K/cumm [facility] Blood 12/20/2024 6:57 AM FICTION AND NONFICTION PROSE WRITER 12/20/2024 7:12 AM FICTION AND NONFICTION PROSE WRITER Andrew Boyd WEB CONTENT & SOCIAL MEDIA MANAGER LAB BLOOD ORDERABLES Final [facility] Performing Organization Address [facility] Co de Phone Number [address] [address] * Phosphorus (12/20/2024 6:57 AM FICTION AND NONFICTION PROSE WRITER) Phosphorus, pl 3.4 2.3 - 4.5 mg/dL Blood 12/20/2024 6:57 AM FICTION AND NONFICTION PROSE WRITER 12/20/2024 7:12 AM FICTION AND NONFICTION PROSE WRITER Andrew Boyd WEB CONTENT & SOCIAL MEDIA MANAGER LAB BLOOD ORDERABLES Final [facility] Performing Organization Address [facility] de Phone Number [address] [address] * Magnesium (12/20/2024 6:57 AM FICTION AND NONFICTION PROSE WRITER) Magnesium 1.9 1.4 - 2.5 mg/dL Blood 12/20/2024 6:57 AM FICTION AND NONFICTION PROSE WRITER 12/20/2024 7:12 AM FICTION AND NONFICTION PROSE WRITER Result [facility] Andrew Boyd WEB CONTENT & SOCIAL MEDIA MANAGER LAB BLOOD ORDERABLES Final [facility] Performing Organization Address [facility] de Phone Number [address] [address] * (ABNORMAL) Hemoglobin A1c (12/20/2024 6:57 AM FICTION AND NONFICTION PROSE WRITER) Hgb A1C 7.3(H) 4.0 - 5.6 % Estimated Average Glucose 163 mg/dL [facility] Comment: The ADA recommends reporting an estimated Average Glucose (eAG) with all Hemoglobin A1c results using the equation derived from a study of 507 normal and diabetic adults. Minority populations were underrepresented and children were not included. (Diabetes Care 31:3771-3571, 2008). The eAG is not equivalent to a fasting glucose. Blood 12/20/2024 6:57 AM FICTION AND NONFICTION PROSE WRITER 12/20/2024 7:12 AM FICTION AND NONFICTION PROSE WRITER us Andrew Boyd NP LAB BLOOD ORDERABLES Final R esult [facility] [address] [facility] [place] [address] * (ABNORMAL) Lipid panel (12/20/2024 6:57 AM FICTION AND NONFICTION PROSE WRITER) Cholesterol 129 30 - 199 mg/dL Comment: Interpretive Data Ages < or = 19 years Acceptable: <170 mg/dL Borderline high: 170-199 mg/dL High: >or= 200 mg/dL Ages > or = 20 years Desirable: <200 mg/dL Borderline high: 200-239 mg/dL High: >or= 240 mg/dL Literature References: 1. Expert Panel on Integrated Guidelines for Cardiovascular Health and Risk Reduction in Children and Adolescents. Pediatrics 2011;128:S213 2. NCEP Expert Panel. Circulation 2004;110:227 Current Interpretive Data was last revised on 2018. Triglycerides 116 <=149 mg/dL [facility] Comment: Interpretive Data Ages < or = 9 years Acceptable: <75 mg/dL Borderline high: 75-99 mg/dL High: >or= 100 mg/dL Ages 10 to 20 years Acceptable: <90 mg/dL Borderline high: 90-129 mg/dL High: >or= 130 mg/dL Ages > or = 20 years Desirable: <150 mg/dL Borderline high: 150-199 mg/dL High: 200-499 mg/dL Very high: >or= 499 mg/dL Literature References: 1. Expert Panel on Integrated Guidelines for Cardiovascular Health and Risk Reduction in Children and Adolescents. Pediatrics 2011;128:S213 2. NCEP Expert Panel. Circulation 2004;110:227 Current Interpretive Data was last revised on 2018. HDL 39(L) >=40 mg/dL [facility] Comment: Interpretive Data Ages < or = 19 years Acceptable: >45 mg/dL Borderline low: 40-45 mg/dL Low: <40 mg/dL Ages > or = 20 years Desirable: >or= 60 mg/dL Low: <40 mg/dL Literature References: 1. Expert Panel on Integrated Guidelines for Cardiovascular Health and Risk Reduction in Children and Adolescents. Pediatrics 2011;128:S213 2. NCEP Expert Panel. Circulation 2004;110:227 Current Interpretive Data was last revised on 2018. LDL, calculated 69 <=129 mg/dL [facility] Comment: Interpretive Data Ages < or = 19 years Acceptable: <110 mg/dL Borderline high: 110-129 mg/dL High: >or= 130 mg/dL Ages > or = 20 years Optimal: <100 mg/dL Near optimal: 100-129 mg/dL Borderline high: 130-159 mg/dL High: >160 mg/dL Calculated using the Blayne LDL-C estimating equation. This equation was implemented on 2024. Prior to this date LDL-C was estimated using the Friedewald equation. Literature References: 1. Expert Panel on Integrated Guidelines for Cardiovascular Health and Risk Reduction in Children and Adolescents. Pediatrics 2011;128:S213 2. NCEP Expert Panel. Circulation 2004;110:227 3. Blayne Jose et al. CAROLEE Cardiol. 2019February 14;5(5):540-548. doi: 10.1001/[email or web address].2020.0013 Current Interpretive Data was last revised on 2024. Non-HDL Cholesterol 90 mg/dL [facility] Comment: Interpretive Data Ages < or = 19 years Acceptable: <120 mg/dL Borderline high: 120-144 mg/dL High: >145 mg/dL Ages > or = 20 years When triglycerides are >200 mg/dL, Non-HDL cholesterol is a secondary target of therapy with treatment goals that are 30 mg/dL greater than the LDL cholesterol target. Literature References: 1. Expert Panel on Integrated Guidelines for Cardiovascular Health and Risk Reduction in Children and Adolescents. Pediatrics 2011;128:S213 2. NCEP Expert Panel. Circulation 2004;110:227 Current Interpretive Data was last revised on 2018. Chol/HDL ratio 3 [facility] Blood 12/20/2024 6:57 AM FICTION AND NONFICTION PROSE WRITER 12/20/2024 7:12 AM FICTION AND NONFICTION PROSE WRITER us Takeysha L. Lowe WEB CONTENT & SOCIAL MEDIA MANAGER LAB BLOOD ORDERABLES Final R esult Performing Organization Address City/[facility]/ZIP Co de Phone Number [facility] [address] [facility] [place] [address] * Comprehensive metabolic panel (12/20/2024 6:57 AM FICTION AND NONFICTION PROSE WRITER) Sodium 142 135 - 145 mmol/L Potassium, pl 4.3 3.3 - 4.9 mmol/L [facility] Chloride 106 97 - 110 mmol/L [facility] CO2 28 22 - 32 mmol/L [facility] Anion gap 8 2 - 15 mmol/L [facility] BUN 14 6 - 25 mg/dL [facility] Creatinine 0.78 0.60 - 1.10 mg/dL [facility] Glucose 130 70 - 199 mg/dL [facility] Comment: Interpretive Data Fasting glucose >/= 126 mg/dl is diagnostic for diabetes. Fasting is defined as no caloric intake for at least 8 hours. Fasting glucose between 100 mg/dl to 125 mg/dl is diagnostic of prediabetes. In a patient with classic symptoms of hyperglycemia or hyperglycemic crisis, a random glucose >/= 200 mg/dl is diagnostic for diabetes. In the absence of unequivocal hyperglycemia, results should be confirmed by repeat testing. The classification and Diagnosis of Diabetes Diabetes Care 2021; 46: S19-S40. Current interpretive data was last revised 2022. Calcium 8.9 8.5 - 10.3 mg/dL [facility] Bilirubin, total <0.2 0.1 - 1.2 mg/dL [facility] Protein, pl 6.6 6.5 - 8.5 g/dL [facility] Albumin 3.7 3.5 - 5.0 g/dL [facility] Alk phos 63 40 - 130 Units/L [facility] ALT 10 7 - 45 Units/L [facility] AST 20 10 - 45 Units/L [facility] Blood 12/20/2024 6:57 AM FICTION AND NONFICTION PROSE WRITER 12/20/2024 7:12 AM FICTION AND NONFICTION PROSE WRITER Andrew Boyd WEB CONTENT & SOCIAL MEDIA MANAGER LAB BLOOD ORDERABLES Final R esult Performing Organization Address City/[facility]/ZIP Co de Phone Number [facility] [address] [facility] [employer] [place] [address] * POCT glucose (12/19/2024 8:13 PM FICTION AND NONFICTION PROSE WRITER) Glucose, POC 138 70 - 199 mg/dL Blood 12/19/2024 8:13 PM FICTION AND NONFICTION PROSE WRITER 12/19/2024 8:13 PM FICTION AND NONFICTION PROSE WRITER Julisa Kruse MD LAB POCT ORDERABLES - DEVICE Final Result Performing Organization Address City/[facility]/ZIP Co de Phone Number [address] [place] [address] * POCT glucose (12/19/2024 5:44 PM FICTION AND NONFICTION PROSE WRITER) Glucose, POC 155 70 - 199 mg/dL Blood 12/19/2024 5:44 PM FICTION AND NONFICTION PROSE WRITER 12/19/2024 5:44 PM FICTION AND NONFICTION PROSE WRITER Julisa Kruse MD LAB POCT ORDERABLES - DEVICE Final Result Performing Organization Address [facility]/ZIP Co de Phone Number [address] [address] * POCT glucose (12/19/2024 1:30 PM FICTION AND NONFICTION PROSE WRITER) Glucose, POC 137 70 - 199 mg/dL Blood 12/19/2024 1:30 PM FICTION AND NONFICTION PROSE WRITER 12/19/2024 1:30 PM FICTION AND NONFICTION PROSE WRITER Julisa Kruse MD LAB POCT ORDERABLES - DEVICE Final Result Performing Organization Address City/[facility] Co de Phone Number [address] [place] [address] * POCT glucose (12/19/2024 10:16 AM FICTION AND NONFICTION PROSE WRITER) Glucose, POC 157 70 - 199 mg/dL Blood 12/19/2024 10:1 6 AM FICTION AND NONFICTION PROSE WRITER 12/19/2024 10:16 AM FICTION AND NONFICTION PROSE WRITER Hugo Nunez MD LAB POCT ORDERABLES - DEVIC E Final Result [facility] [address] Department [place] [address] * Surgical pathology (12/19/2024 9:26 AM FICTION AND NONFICTION PROSE WRITER) Tissue specimen (specimen) (Amputation non-tramatic) 12/19/2024 9:26 AM FICTION AND NONFICTION PROSE WRITER Narrative PATHOLOGY [facility] - 12/24/2024 7:35 PM CDT [facility] Department of Pathology [address] [place] [id number] Note to Patients: This report may contain a detailed description of human tissue sent by a health care provider to the laboratory for pathologic evaluation. The content of this report is essential for diagnosis and may provide important critical findings. This information may be unfamiliar to patients to review without a medical professional present. It is advised that the patient review this report in the presence of a health care provider who can answer questions and explain the details. Final Report Patient Name: TERE ARREAGA : 1955 (Age: 69) Gender: F Address: [address] [place] [address] Hospital #: [id number] Service: Vascular Location: Patient Type: [facility] OP IN BED Taken: 12/19/2024 Received: 12/19/2024 Accessioned: 12/19/2024 Reported: 12/24/2024 Physician(s): MD Dr Asif Pacheco Diagnosis: Left first and second toes, amputation: - Dry gangrene (gross diagnosis). Jossue Hart DO Report Electronically Reviewed and Signed Out By Jossue Hart DO 12/24/2024 19:35:28 Specimen(s) Received: A: Left First and Second Toe Microscopic Description: Unless gross-only is specified, the final diagnosis for each specimen is based on a microscopic examination of each tissue sample. Clinical History: The patient is a 69-year-old woman with peripheral vascular disease with gangrene. Operative procedure: Left first and second toe amputation. Gross Description Received in formalin, labeled with the patient s identifiers and left first and second toe and consists of the left first and second toes, which are connected by skin and soft tissue, and have a combined measurement of 6.4 x 4.5 x 3.0 cm. Both toes are disarticulated at the metatarsophalangeal joints, and display crane-white, smooth articular cartilage at the margin. Located on the distal aspects of the first and second toes, involving the nails are black, indurated ulcers measuring 2.7 cm and 1.6 cm, respectively. The closest ulcer (second toe) is 1.3 cm from the skin and soft tissue resection margin. The remaining uninvolved skin of the toes is crane-white and dull with a small amount of skin slippage surrounding the ulcers. Sectioning reveals crane-yellow, firm trabecular bone. A digital photograph is taken and the specimen is for gross examination only. JAQUELIN Schafer, PA ([facility]) Microscopic slide review and interpretation for this case was performed at [facility], Department of Surgical Pathology, [address] [place], [place] [id number] [id number] [facility] # [id number] Hugo Nunez MD LAB PATHOLOGY ORDERABLES Fi nal Result PATHOLOGY [facility] * TX AN ELECTIVE SUPRAGLOTTIC AIRWAY, TX AN PROCEDURE PLACEHOLDER (12/19/2024 9:10 AM FICTION AND NONFICTION PROSE WRITER) Narrative Dionicio Barnard CRNA - 12/19/2024 9:10 AM FICTION AND NONFICTION PROSE WRITER Dionicio Barnard CRNA 12/19/2024 9:10 AM Airway Patient location: OR Urgency: elective Indications for airway management: anesthesia Difficult airway: no Staff: Placed by: PIPELINE DISPATCHER: Dionicio Barnard CRNA Emergent airway documentation: Risks and benefits discussed: yes Consent obtained: yes Consent given by: patient Airway prep: Preoxygenated: yes Patient position: sniffing Mask difficulty assessment: 0 - not attempted Spontaneous ventilation during airway: absent Sedation level during airway: deep Final airway details: Final airway type: supraglottic airway Final supraglottic airway: classic SGA size: 4 Number of attempts: 1 Ender Sarah MD ANESTHESIA ORDERABLES Final Result * POCT glucose (12/19/2024 7:41 AM FICTION AND NONFICTION PROSE WRITER) Glucose, POC 155 70 - 199 mg/dL Blood 12/19/2024 7:41 AM FICTION AND NONFICTION PROSE WRITER 12/19/2024 7:41 AM FICTION AND NONFICTION PROSE WRITER Hugo Nunez MD LAB POCT ORDERABLES - DEVIC E Final Result Performing Organization Address [facility] de Phone Number [facility] [address] [place] [address] * eGFR (12/19/2024 7:40 AM FICTION AND NONFICTION PROSE WRITER) eGFR 80 >=60 mL/min/1. 73 m2 Comment: Interpretive Data Reference Interval Normal >/= 90 mL/min/1.73m2 Mildly decreased* 60 - 89 mL/min/1.73m2 Mildly to moderately decreased 45 - 59 mL/min/1.73m2 Moderately to severely decreased 30 - 44 mL/min/1.73m2 Severely decreased 15 - 29 mL/min/1.73m2 Kidney Failure < 15 mL/min/1.73m2 *Relative to young adult level Estimated glomerular filtration rate is determined by the 2020 CKD-EPI equation recommended by the National Kidney Foundation (A Unifying Approach to GFR Estimation: Recommendations of the NKF-ASK Task Force on Reassessing the Inclusion of Race in Diagnosing Kidney Disease, JASN 2020). The CKD-EPI equation should not be used for patients with unstable renal function and has not been validated in children and those over 70. Current interpretive data was last reviewed 2021. Blood 12/19/2024 7:40 AM FICTION AND NONFICTION PROSE WRITER 12/19/2024 7:48 AM FICTION AND NONFICTION PROSE WRITER Hugo Nunez MD LAB BLOOD ORDERABLES Final Result Performing Organization Address City/[facility] Co de Phone Number [facility] [place] [address] * Differential, auto (12/19/2024 7:40 AM FICTION AND NONFICTION PROSE WRITER) Neutrophil abs 6.2 1.5 - 6.5 K/cumm Imm gran abs 0.0 0.0 - 0.1 K/cumm [facility] Lymphocyte abs 1.8 0.8 - 3.3 K/cumm [facility] Monocyte abs 0.7 0.2 - 0.8 K/cumm [facility] Eosinophil abs 0.1 0.0 - 0.5 K/cumm [facility] Basophil abs 0.0 0.0 - 0.1 K/cumm [facility] Neutrophil pct 69.7 % [facility] Comment: Interpretive Data Percent cell count reference ranges are not reported, since discordance with absolute values may lead to misinterpretation of CBC data. Current Interpretive Data was last revised on 2018. Imm gran pct 0.2 % [facility] Comment: Interpretive Data Percent cell count reference ranges are not reported, since discordance with absolute values may lead to misinterpretation of CBC data. Current Interpretive Data was last revised on 2018. Lymphocyte pct 20.5 % [facility] Comment: Interpretive Data Percent cell count reference ranges are not reported, since discordance with absolute values may lead to misinterpretation of CBC data. Current Interpretive Data was last revised on 2018. Monocyte pct 7.8 % [facility] Comment: Interpretive Data Percent cell count reference ranges are not reported, since discordance with absolute values may lead to misinterpretation of CBC data. Current Interpretive Data was last revised on 2018. Eosinophil pct 1.5 % [facility] Comment: Interpretive Data Percent cell count reference ranges are not reported, since discordance with absolute values may lead to misinterpretation of CBC data. Current Interpretive Data was last revised on 2018. Basophil pct 0.3 % [facility] Comment: Interpretive Data Percent cell count reference ranges are not reported, since discordance with absolute values may lead to misinterpretation of CBC data. Current Interpretive Data was last revised on 2018. Blood 12/19/2024 7:40 AM FICTION AND NONFICTION PROSE WRITER 12/19/2024 7:48 AM FICTION AND NONFICTION PROSE WRITER Hugo Nunez MD LAB BLOOD ORDERABLES Final Result Performing Organization Address [facility] [place] de Phone Number ZEINA [address] [address] * (ABNORMAL) CBC with auto differential (12/19/2024 7:40 AM FICTION AND NONFICTION PROSE WRITER) Pathologist [facility] WBC 8.9 3.8 - 9.9 K/cumm Hgb 13.0 11.9 - 15.5 g/dL [facility] Hct 40.5 35.6 - 45.5 % [facility] Plt 281 150 - 400 K/cumm [facility] MPV 11.1 9.1 - 12.3 fL [facility] RBC 4.40 3.90 - 5.20 M/cumm [facility] MCV 92.0 81.3 - 96.4 fL [facility] MCH 29.5 27.1 - 33.3 pg [facility] MCHC 32.1(L) 32.3 - 35.7 g/dL [facility] RDW CV 15.9(H) 11.1 - 14.9 % [facility] RDW SD 53.9(H) 35.7 - 48.1 fL [facility] NRBC abs 0.00 0.00 - 0.01 K/cumm [facility] Blood 12/19/2024 7:40 AM FICTION AND NONFICTION PROSE WRITER 12/19/2024 7:48 AM FICTION AND NONFICTION PROSE WRITER Hugo Nunez MD LAB BLOOD ORDERABLES Final Result Performing Organization Address [facility] Co de Phone Number ZEINA [address] [place] [address] * ABO/Rh (12/19/2024 7:40 AM FICTION AND NONFICTION PROSE WRITER) Pathologist [facility] ABO/Rh O Positive Blood 12/19/2024 7:40 AM FICTION AND NONFICTION PROSE WRITER 12/19/2024 7:46 AM FICTION AND NONFICTION PROSE WRITER Hugo Nunez MD LAB BLOOD BANK TEST ORDERAB LES Final Result Performing Organization Address [facility] Co de Phone Number ZEINA [address] [place] [address] * aPTT (12/19/2024 7:40 AM FICTION AND NONFICTION PROSE WRITER) Pathologist [facility] aPTT 23 22 - 37 sec Comment: Interpretive data aPTT test has not been evaluated for monitoring heparin therapy. The anti-Xa is the preferred test. Current interpretive data was last revised on 2019. Blood 12/19/2024 7:40 AM FICTION AND NONFICTION PROSE WRITER 12/19/2024 7:48 AM FICTION AND NONFICTION PROSE WRITER Hugo Nunez MD LAB BLOOD ORDERABLES Final Result Performing Organization Address [facility] de Phone Number HAR[address] [address] * Protime-INR (12/19/2024 7:40 AM FICTION AND NONFICTION PROSE WRITER) Pathologist [facility] PT 12.9 12.0 - 14.6 sec INR 1.0 0.9 - 1.2 [facility] Comment: Ref Range High Interpretive data Oral anticoagulant therapeutic ranges: Venous thromboembolism prophylaxis or treatment: 2.0-3.0 CARDIOLOGY Standard range: 2.0-3.0 High-intensity range: 2.5-3.5 Refer to indication-specific guidelines for appropriate target ranges for prosthetic heart valve replacement. Current interpretive data was last revised on 2019. Blood 12/19/2024 7:40 AM FICTION AND NONFICTION PROSE WRITER 12/19/2024 7:48 AM FICTION AND NONFICTION PROSE WRITER Hugo Nunez MD LAB BLOOD ORDERABLES Final Result Performing Organization Address [facility] Co de Phone Number HAR[address] [address] * Antibody screen (12/19/2024 7:40 AM FICTION AND NONFICTION PROSE WRITER) Ruddy, indirect, Gel Interpretation Negative ABSC Blood 12/19/2024 7:40 AM FICTION AND NONFICTION PROSE WRITER 12/19/2024 7:46 AM FICTION AND NONFICTION PROSE WRITER us Hugo Nunez MD LAB BLOOD BANK TEST ORDERAB LES Final Result [facility] [address] [facility] Department [place] [address] * Comprehensive metabolic panel (12/19/2024 7:40 AM FICTION AND NONFICTION PROSE WRITER) Sodium 140 135 - 145 mmol/L Potassium, pl 3.9 3.3 - 4.9 mmol/L [facility] Comment:Hemolyzed; Potassium value may be falsely elevated by as much as 1.0 mmol/L. Suggest redraw and reanalysis. Chloride 103 97 - 110 mmol/L [facility] CO2 23 22 - 32 mmol/L [facility] Anion gap 14 2 - 15 mmol/L [facility] BUN 20 6 - 25 mg/dL [facility] Creatinine 0.81 0.60 - 1.10 mg/dL [facility] Glucose 153 70 - 199 mg/dL [facility] Comment: Interpretive Data Fasting glucose >/= 126 mg/dl is diagnostic for diabetes. Fasting is defined as no caloric intake for at least 8 hours. Fasting glucose between 100 mg/dl to 125 mg/dl is diagnostic of prediabetes. In a patient with classic symptoms of hyperglycemia or hyperglycemic crisis, a random glucose >/= 200 mg/dl is diagnostic for diabetes. In the absence of unequivocal hyperglycemia, results should be confirmed by repeat testing. The classification and Diagnosis of Diabetes Diabetes Care 2021; 46: S19-S40. Current interpretive data was last revised 2022. Calcium 9.9 8.5 - 10.3 mg/dL [facility] Bilirubin, total 0.2 0.1 - 1.2 mg/dL [facility] Protein, pl 7.5 6.5 - 8.5 g/dL [facility] Albumin 4.2 3.5 - 5.0 g/dL [facility] Alk phos 76 40 - 130 Units/L [facility] ALT 14 7 - 45 Units/L [facility] AST See Comment 10 - [facility] Comment:Credited; Hemolyzed Specimen Blood 12/19/2024 7:40 AM FICTION AND NONFICTION PROSE WRITER 12/19/2024 7:48 AM FICTION AND NONFICTION PROSE WRITER us Hugo Nunez MD LAB BLOOD ORDERABLES Final Result Performing Organization Address City/State/ZIP Co fl Phone Number ZEINA MH [address] [facility] Department [place] [address] from Last 3 [place] [address] T MEDICARE GOLD [employer] MEDICARE GOLD T MEDICARE GOLD Advance Directives For more information, please contact: [phone] * Full Code (Latest Code Status on File) Date Activated Date Inactivated Comments 12/19/2024 12:06 PM 12/20/2024 9:47 PM * Full Code Date Activated Date Inactivated Comments 08/30/2024 8:52 PM 09/12/2024 10:00 PM * Full Code Date Activated Date Inactivated Comments 08/16/2024 6:19 PM 08/22/2024 8:31 PM * Full Code Date Activated Date Inactivated Comments 08/14/2024 4:56 PM 08/16/2024 6:19 PM * Full Code Date Activated Date Inactivated Comments 08/11/2024 3:08 AM 08/14/2024 4:56 PM Care Teams Fixing Carpenter Relationship Specialty Start Date End Date Asif Donald MD [address] [address] PCP - General Emergency Medicine 08/22/24 García Park MD [address] [place] [address] Surgeon Vascular Surgery 10/29/22 Terrance Pollard MD [address] [facility] [address] [facility] [place] [address] Consulting Physician Cardiovascular Disease 03/16/23 Talat Walsh MD [address] [place] [address] Referring Physician Internal Medicine 03/16/23 Antonio Donaldson MD [address] [place] [address] Referring Physician Nephrology 12/13/24 Hugo Nunez MD [address] [facility] [place] [address] Consulting Physician Vascular Surgery 12/19/24
--- OUTSIDE RECORDS SUMMARY | 2025-02-11 15:30 | XMS_ITS | Encounter Summary ---
Author Organization [facility] Facility Care Team Providers Care Die Baker Name Role Phone Basil Lua MD Primary Care Provider [phone] Asif Donald MD Primary Care Provider [phone] García Park MD Unavailable [phone] Terrance Pollard MD Unavailable Talat Walsh MD Unavailable [phone] Asif Donald MD Primary Care Provider [phone] Antonio Donaldson MD Unavailable [phone] Hugo Nunez MD Unavailable [phone] Encounter Details Date Type Department Care Team (Latest Contact Info) Description 04/07/2017 Orders Only [facility] CLINCONV Provider, MD Shantell [address] [place] [address] Social History Tobacco Use Types Packs/Day Years Used Date Smoking Tobacco: Never Assessed Comments Unknown Sex and Gender Information Value Date Recorded Sex Assigned at Not on file Legal Sex Female 9:04 AM CDT Gender Identity Not on file Sexual Orientation Not on file documented as of this encounter Plan of Treatment Not on file documented as of this encounter Procedures Procedure Name Priority Date/Time Associated Diagnosis Comments SCAN - PATHOLOGY 04/08/2017 12:0 0 AM CDT PROCEDURE - RESULT 03/25/2017 12 :00 AM CDT documented in this encounter Results * SCAN - PATHOLOGY (04/08/2017 12:00 AM CDT) Narrative 04/08/2017 12:00 AM CDT Ordered by an unspecified provider. Historical Provider Final Res ult * PROCEDURE - RESULT (03/25/2017 12:00 AM CDT) Narrative 03/25/2017 12:00 AM CDT Ordered by an unspecified provider. Historical Provider Final Res ult documented in this encounter Visit Diagnoses Not on filedocumented in this encounter Care Teams Die Baker Relationship Specialty Start Date End Date Basil Lua MD [address] [place] [address] PCP - General 01/03/19 03/22/19 Asif Donald MD [address] [place] [address] PCP - General 03/23/19 08/21/24 Asif Donald MD [address] [address] PCP - General Emergency Medicine 08/22/24 García Park MD [address] [facility] [address] [place] [facility] [place] [address] Surgeon Vascular Surgery 10/29/22 Terrance Pollard MD [address] [facility] [address] [place] [address] Consulting Physician Cardiovascular Disease 03/16/23 Talat Walsh MD [address] [place] [address] [place] [address] Referring Physician Internal Medicine 03/16/23 Antonio Donaldson MD [address] [facility] [address] [facility] 121 [place] [address] Referring Physician Nephrology 12/13/24 Hugo Nunez MD [address] [facility] [address] [place] [address] Consulting Physician Vascular Surgery 12/19/24 documented as of this encounter
--- OUTSIDE RECORDS SUMMARY | 2025-02-11 15:30 | XMS_ITS | Encounter Summary ---
Author Organization [facility] Facility Care Team Providers Care Brake Operator Name Role Phone Basil Lua MD Primary Care Provider Asif Donald MD Primary Care Provider [phone] García Park MD Unavailable [phone] Terrance Pollard MD Unavailable Talat Walsh MD Unavailable [phone] Asif Donald MD Primary Care Provider [phone] Antonio Donaldson MD Unavailable [phone] Hugo Nunez MD Unavailable [phone] Encounter Details Date Type Department Care Team (Latest Contact Info) Description 02/14/2017 Orders Only [facility] CLINCONV Provider, MD Shantell [address] [place] [address] Social History Tobacco Use Types Packs/Day [...] Procedure Name Priority Date/Time Associated Diagnosis Comments PROCEDURE - RESULT 02/15/2017 12 :00 AM CDT documented in this encounter Results * PROCEDURE - RESULT (02/15/2017 12:00 AM CDT) Narrative 02/15/2017 12:00 AM CDT Ordered by an unspecified provider. us Historical Provider Final Res ult documented in this encounter Visit Diagnoses Not on filedocumented in this encounter Care Teams Brake Operator Relationship Specialty Start Date End Date Basil Lua MD [address] [place] [address] PCP - General 01/03/19 03/22/19 Asif Donald MD [address] [place] [address] PCP - General 03/23/19 08/21/24 Asif Donald MD [address] [place] [address] PCP - General Emergency Medicine 08/22/24 García [facility] MD [facility] [address] [address] [address] Surgeon Vascular Surgery 10/29/22 Terrance Pollard MD [facility] [address] [place] [address] [address] Consulting Physician Cardiovascular Disease 03/16/23 Talat Walsh MD [address] [place] [address] Referring Physician Internal Medicine 03/16/23 Antonio Donaldson MD [address] [address] Referring Physician Nephrology 12/13/24 Hugo Nunez MD [address] [facility] [address] [place] [address] Consulting Physician Vascular Surgery 12/19/24 documented as of this encounter
--- OUTSIDE RECORDS SUMMARY | 2025-02-11 15:30 | XMS_ITS | Clinical Summary ---
Author Organization [facility] Address [address] [facility], [address] [address] Phone Care Team Providers Care Sourcing Assistant Name Role Phone Asif Donald MD Primary Care Provider [phone] Allergies No known active allergies Medications gabapentin (NEURONTIN) 400 MG Capsule 0 10/22/2016 Active amLODIPine (NORVASC) 5 MG Tablet 0 10/28/2016 Active losartan (COZAAR) 100 MG Tablet 1 11/29/2016 Active meloxicam (MOBIC) 7.5 MG Tablet 2 11/29/2016 Active glimepiride (AMARYL) 1 MG Tablet 2 mg. 0 10/22/2016 Active acyclovir (ZOVIRAX) 400 MG Tablet Take 800 mg by mouth every 4 hours (while awake). Active simvastatin (ZOCOR) 40 MG Tablet Take 40 mg by mouth every evening. Active alendronate (FOSAMAX) 10 MG Tablet Take 10 mg by mouth every morning (before breakfast). Active Cetirizine HCl (ZYRTEC ALLERGY PO) Take by mouth. Active Calcium Carbonate-Vitam in D (CALCIUM-VITAMI N D) 600-125 MG-UNIT Tablet Take by mouth. Active Calcium Carbonate (CALCIUM 600 PO) Take by mouth. Active POTASSIUM CHLORIDE PO Take by mouth. Active ALBUTEROL SULFATE HFA IN take by inhalation. Reported on 03/03/2017 Active Budesonide-Form oterol Fumarate (SYMBICORT IN) take by inhalation. Active sertraline (ZOLOFT) 25 MG Tablet Take 25 mg by mouth daily. 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 Not on file Not on file Last Filed Vital Signs Vital Sign Reading Time Taken Comments Blood Pressure 144/76 03/03/2017 3:09 PM CDT Pulse 74 03/03/2017 3:09 PM CDT Temperature 36.7 C (98 F) 03/03/2017 3:09 PM CDT Respiratory Rate 16 03/03/2017 3:09 PM CDT Oxygen Saturation 95% 03/03/2017 3:09 PM CDT Inhaled Oxygen Concentration - - Weight 58.1 kg (128 lb) 03/03/2017 3:09 PM CDT Height 167.6 cm (5' 6 ) 03/03/2017 3:09 PM CDT Body Mass Index 20.66 03/03/2017 3:09 PM CDT Plan of Treatment Health Maintenance Due Date Last Done Comments TdaP Immunization 1957 Colonoscopy 2002 Colorectal Cancer Screening 2002 Cologuard 2007 Immunochemical Fecal Occult Blood 2007 Pneumococcal Immunization (5 0+ years) (1 of 1 - PCV) 2007 Zoster Immunization (1 of 2) 2007 Influenza Immunization (#1) 2024 SARS-COV-2 Immunization ( - 2023-25 season) 2024 Respiratory Syncytial Virus (RSV) Immunization (Adult) (1 - 1-dose 75+ series) 02/18/2032 Hepatitis B Immunization Aged Out No longer eligible based on patient's age to complete this topic Meningococcal Immunization (ACWY) Aged Out No longer eligible based on patient's age to complete this topic Rotavirus Immunization Aged Out No lo nger eligible based on patient's age to complete this topic Insurance [facility] Care Teams Sourcing Assistant Relationship Specialty Start Date End Date Asif Donald MD [address] [address] PCP - General Family Medicine 11/03/16
--- OUTSIDE RECORDS SUMMARY | 2025-02-11 15:30 | XMS_ITS | Encounter Summary ---
Author Organization [facility] Facility Care Team Providers Care Electric Dolly Operator Name Role Phone Basil Lua MD Primary Care Provider [phone] Asif Donald MD Primary Care Provider [phone] García Pakr MD Unavailable [phone] Terrance Pollard MD Unavailable Talat Walsh MD Unavailable [phone] Asif Donald MD Primary Care Provider [phone] Antonio Donaldson MD Unavailable [phone] Hugo Nunez MD Unavailable [phone] Encounter Details Date Type Department Care Team (Latest Contact Info) Description 02/07/2018 Orders Only [facility] CLINCONV Provider, MD Shantell [address] [place] [address] Social History Tobacco Use Types Packs/Day [...] Date/Time Associated Diagnosis Comments SCAN - PATHOLOGY 02/08/2018 12:0 0 AM CDT PROCEDURE - RESULT 01/27/2018 12 :00 AM CDT documented in this encounter Results * SCAN - PATHOLOGY (02/08/2018 12:00 AM CDT) Narrative 02/08/2018 12:00 AM CDT Ordered by an unspecified provider. Historical Provider Final Res ult * PROCEDURE - RESULT (01/27/2018 12:00 AM CDT) Narrative 01/27/2018 12:00 AM CDT Ordered by an unspecified provider. Historical Provider Final Res ult documented in this encounter Visit Diagnoses Not on filedocumented in this encounter Care Teams Electric Dolly Operator Relationship Specialty Start Date End Date Basil Lua MD [address] [place] [address] PCP - General 01/03/19 03/22/19 Asif Donald MD [address] [place] [address] PCP - General 03/23/19 08/21/24 Asif Donald MD [address] [address] PCP - General Emergency Medicine 08/22/24 García Park MD [address] [facility] [address] [place] [facility] [place] [address] Surgeon Vascular Surgery 10/29/22 Terrance Pollard MD [address] [facility] [address] [place] [address] Consulting Physician Cardiovascular Disease 03/16/23 Talat Walsh MD [address] [place] [address] [place] [address] Referring Physician Internal Medicine 03/16/23 Antonio Donaldson MD [address] [facility] [address] [facility] 121 [place] [address] Referring Physician Nephrology 12/13/24 Hugo Nunez MD [address] [facility] [address] [place] [address] Consulting Physician Vascular Surgery 12/19/24 documented as of this encounter
--- OUTSIDE RECORDS SUMMARY | 2025-02-11 15:30 | XMS_ITS | Encounter Summary ---
Author Organization [facility] Facility Care Team Providers Care Water Tender Name Role Phone Basil Lua MD Primary Care Provider Asif Donald MD Primary Care Provider [phone] García Park MD Unavailable [phone] Terrance Pollard MD Unavailable Talat Walsh MD Unavailable [phone] Asif Donald MD Primary Care Provider [phone] Antonio Donaldson MD Unavailable [phone] Hugo Nunez MD Unavailable [phone] Encounter Details Date Type Department Care Team (Latest Contact Info) Description 01/30/2018 Orders Only [facility] CLINCONV Provider, MD Shantell [address] [place] [address] Social History Tobacco Use Types Packs/Day [...] Date/Time Associated Diagnosis Comments PROCEDURE - RESULT 01/30/2018 12 :00 AM CDT documented in this encounter Results * PROCEDURE - RESULT (01/30/2018 12:00 AM CDT) Narrative 01/30/2018 12:00 AM CDT Ordered by an unspecified provider. us Historical Provider Final Res ult documented in this encounter Visit Diagnoses Not on filedocumented in this encounter Care Teams Water Tender Relationship Specialty Start Date End Date Basil Lua MD [address] [place] [address] PCP - General 01/03/19 03/22/19 Asif Donald MD [address] [place] [address] PCP - General 03/23/19 08/21/24 Asif Donald MD [address] [place] [address] PCP - General Emergency Medicine 08/22/24 García Park MD [facility] [address] [address] Surgeon Vascular Surgery 10/29/[address] [facility] [address] [address] [address] Consulting Physician Cardiovascular Disease 03/16/23 Talat Walsh MD [address] [place] [address] Referring Physician Internal Medicine 03/16/23 Antonio Donaldson MD [address] [address] Referring Physician Nephrology 12/13/24 Hugo Nunez MD [address] [facility] [address] [place] [address] Consulting Physician Vascular Surgery 12/19/24 documented as of this encounter
--- OUTSIDE RECORDS SUMMARY | 2025-02-11 15:30 | XMS_ITS | Clinical Summary ---
Author Organization [facility] Address [address] [place] [address] Care Team Providers Care Condenser Setter Name Role Phone Omid Burton MD Unavailable [phone] Unknown, Provider Primary Care Provider Unavaila ble Source Comments [facility],non-owned Affiliates and Associated Physician Practices is amultiple site organization consisting of ambulatory clinics and hospital sitesin [place], [place], [place] and [place]. This disclosure is being madepursuant to the Care Everywhere program and may not contain all information available regarding this patient. Last updated 18.[facility] Allergies Active Allergy Reactions Criticality Noted Date Comments Codeine Itching 10/27/2015 Tramadol Itching,Nausea and/o r Vomiting,Rash,Vomiting Medium 06/29/2018 rash/itching rash/itching rash/itching rash/itching Medications * Be aware that medications may not be up to date on this document. Alwaysverify current medications with the patient. glimepiride (AMARYL) 4 MG tablet 5 Active glimepiride (AMARYL) 2 MG tablet 5 Active alendronate (FOSAMAX) 10 MG tablet every 7 days 5 Active [place]-3 Fatty Acids (FISH OIL PO) Take by mouth 3 times daily Active lidocaine (XYLOCAINE) 1 % injectionIndica tions:Myofascia l pain 1ml -3ml for intra muscular use. 6 Active Additional Information Patient not taking.Reported on 04/26/2023 HYDROcodone-cleve taminophen ([place]) 5-325 MG tablet Take 1 (one) tablet by mouth every 12 hours 3 Active gabapentin (Neurontin) 100 MG capsule gabapentin 100 mg capsule TAKE 1 CAPSULE BY MOUTH EVERY 12 HOURS Active albuterol (Accuneb) 0.63 MG/3ML nebulizer solution albuterol sulfate 0.63 mg/3 mL solution for nebulization USE 1 VIAL IN NEBULIZER EVERY 6 HOURS NEEDED FOR SHORTNESS OF BREATH OR WHEEZING Active Budeson-Glycopy rrol-Formoterol (Breztri Aerosphere) 160-9-4.8 MCG/ACT AERO Inhale 2 puffs by mouth 2 times daily 2 Active PARoxetine (Paxil) 30 MG tablet Take 1 (one) tablet by mouth once daily 2 Active acyclovir (Zovirax) 800 MG tablet 1 (one) tablet 2 times daily Active pravastatin (Pravachol) 40 MG tablet Take 1 (one) tablet by mouth once daily 3 Active losartan (Cozaar) 100 MG tablet 1 (one) tablet once daily Active amLODIPine (Norvasc) 10 MG tablet Take 1 (one) tablet by mouth once daily 3 Active Active Problems Problem Noted Date Diagnosed Date Cigarette nicotine dependenc e with nicotine-induced disorder 06/16/2022 Sacroiliitis 11/18/2017 Peripheral vascular disease 01/05/2017 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 She is doing well continue exercise and risk factor modification. Bilateral carotid artery stenosis 12/16/2016 Overview (11/18/2022): Last Assessment & Plan: Patient has worsening right internal carotid artery stenosis. Not yet warranting surgical intervention however if any further progression is found likely will require surgical endarterectomy. Carotid disease and risk of stroke was discussed with her in detail in addition to the importance of ongoing risk factor modification. Follow-up 6 months Hyperlipidemia 04/02/2015 Essential hypertension 04/02/2015 Overview (11/18/2022): Last Assessment & Plan: Per patient blood pressure remains well controlled. Continue current regimen per primary care physician Type 2 diabetes mellitus without complication Family History Medical History Relation Name Comments Dementia Father Diabetes; unknown type Father High Cholesterol Father Dementia Maternal Grandmother Diabetes; unknown type Mother High Cholesterol Mother Diabetes; unknown type Paternal Grandmother Relation Name Status Comments Father Maternal Grandmother Mother Paternal Grandmother Social History Tobacco Use Types Packs/Day Years Used Date Smoking Tobacco: Every Day Tobacco Cessation:Ready to Q uit: Not Asked; Counseling Given: Not Answered Alcohol Use Standard Drinks/Week Comments Not Currently 0 (1 standard drink = 0.6 oz pur e alcohol) Comments Unknown Sex and Gender Information Value Date Recorded Sex Assigned at Not on file Legal Sex Female 2:41 PM PRODUCT TESTER Gender Identity Not on file Sexual Orientation Not on file Last Filed Vital Signs Vital Sign Reading Time Taken Comments Blood Pressure 154/78 04/26/2023 2:58 PM CDT Pulse 63 04/26/2023 2:58 PM CDT Temperature 36.4 C (97.5 F) 04/26/2023 2:58 PM CDT Respiratory Rate 18 11/18/2022 2:23 PM PRODUCT TESTER Oxygen Saturation 95% 04/26/2023 2:58 PM CDT Inhaled Oxygen Concentration - - Weight 59 kg (130 lb) 04/26/2023 2:58 PM CDT Height 165.1 cm (5' 5 ) 04/26/2023 2:58 PM CDT Body Mass Index 21.63 04/26/2023 2:58 PM CDT Plan of Treatment Health Maintenance Due Date Last Done Comments BONE DENSITY TESTING 1955 COLOGUARD (AGES 45-75) - COLON CA SCREENING 1957 COLON MONITORING 1957 COLONOSCOPY - COLON CA SCREENING 1957 CT COLONOGRAPHY - COLON CA SCREENING 1957 Colorectal Cancer Screening 1957 FIT - COLON CA SCREENING 1957 FLEX SIG - COLON CA SCREENING 1957 MAMMOGRAM 1957 HEPATITIS C SCREENING 02/13/1975 DTAP/TDAP/TD VACCINES (1 - Tdap) 02/18/1976 PNEUMOCOCCAL VACCINE 50+ (1 of 2 - PCV) 02/18/1976 ZOSTER VACCINE (1 of 2) 2007 DIABETES RETINOPATHY SCREENING 11/18/2022 DIABETES-FOOT EXAM WITH MONOFILAMENT 11/18/2022 DIABETES-HGB A1C 11/18/2022 DIABETES-SERUM CREATININE 03/21/20242022, 03/21/2023, 03/16/2023, Additional history exists COVID-19 VACCINE ( - season) 2024 DEPRESSION SCREENING 10/17/2024 DIABETES - URINE PROTEIN SCREENING 10/17/2024 12/17/2022 MEDICARE AWV CALENDAR YEAR 2024 INFLUENZA VACCINE (Season Ended) 2025 08/17/2021, 08/30/2019, 07/09/2018, Additional history exists Respiratory Syncytial Virus (RSV) Vaccine Pt: or over 60 yrs (1 - 1-dose 75+ series) 02/18/2032 HEPATITIS B VACCINE Aged Out No longe r eligible based on patient's age to complete this topic HIB VACCINE Aged Out No longer eligi ble based on patient's age to complete this topic HPV VACCINE Aged Out No longer eligi ble based on patient's age to complete this topic MENINGOCOCCAL (Group B) VACCINE SHARED DECISION-MAKING Aged Out No longer eligible based on patient's age to complete this topic MENINGOCOCCAL GROUPS A/C/Y/W VACCINE Aged Out No longer eligible based on patient's age to complete this topic Insurance [employer] MEDICARE ADV Care Teams Condenser Setter Relationship Specialty Start Date End Date Unknown, Provider [id number] [place] [address] PCP - General 02/04/23 [place] [id number] [address] [place] [address] Anesthesiology-Pain Management 10/27/15
--- OUTSIDE RECORDS SUMMARY | 2025-02-11 15:30 | XMS_ITS | Encounter Summary ---
Author Organization [facility] Facility Care Team Providers Care Instrument Fitter Name Role Phone Basil Lua MD Primary Care Provider [phone] Asif Donald MD Primary Care Provider [phone] García Park MD Unavailable [phone] Terrance Pollard MD Unavailable Talat Walsh MD Unavailable [phone] Asif Donald MD Primary Care Provider [phone] Antonio Donaldson MD Unavailable [phone] Hugo Nunez MD Unavailable [phone] Encounter Details Date Type Department Care Team (Latest Contact Info) Description 01/09/2018 Orders Only [facility] CLINCONV Provider, MD Shantell [address] [place] [id number] Social History Tobacco Use Types Packs/Day [...] Date/Time Associated Diagnosis Comments PROCEDURE - RESULT 01/06/2018 12 :00 AM CDT documented in this encounter Results * PROCEDURE - RESULT (01/06/2018 12:00 AM CDT) Narrative 01/06/2018 12:00 AM CDT Ordered by an unspecified provider. us Historical Provider Final Res ult documented in this encounter Visit Diagnoses Not on filedocumented in this encounter Care Teams Instrument Fitter Relationship Specialty Start Date End Date Basil Lua MD [address] [place] [address] PCP - General 01/03/19 03/22/19 Asif Donald MD [address] [place] [id number] PCP - General 03/23/19 08/21/24 Asif Donald MD [address] [place] [address] PCP - General Emergency Medicine 08/22/24 García [facility] MD [facility] [address] [place] [address] [address] Surgeon Vascular Surgery 10/29/22 Terrance Pollard MD [facility] [address] [place] [address] [address] Consulting Physician Cardiovascular Disease 03/16/23 Talat Walsh MD [address] [place] [address] Referring Physician Internal Medicine 03/16/23 Antonio Donaldson MD [address] [address] Referring Physician Nephrology 12/13/24 Hugo Nunez MD [address] [place] [address] Consulting Physician Vascular Surgery 12/19/24 documented as of this encounter
--- OUTSIDE RECORDS SUMMARY | 2025-02-11 15:31 | XMS_ITS | CONTINUITY OF CARE DOCUMENT ---
Author Name leigha ahuja Address Unknown Organization [facility] Address [address] [place] [address] [address] [place] [address] Phone [phone] Care Team Providers Care Rn Or Lpn Name Role Phone Josiah Delcid MD Unavailable [phone] CHUCHO CISSE MD Unavailable [phone] CHUCHO CISSE MD Unavailable [phone]
--- OUTSIDE RECORDS SUMMARY | 2025-02-11 15:31 | XMS_ITS | Clinical Summary ---
Author Organization [facility] [place] [facility] Address [address] [place] [address] Care Team Providers Care Wad Impregnator Name Role Phone García Park MD Unavailable [phone] Terrance Pollard MD Unavailable Talat Walsh MD Unavailable [phone] Asif Donald MD Primary Care Provider [phone] Antonio Donaldson MD Unavailable [phone] Hugo Nunez MD Unavailable [phone] Allergies Active Allergy Reactions Criticality Noted Date [...] ischemia Assessment & Plan (10/03/2024 9:15 AM FRANCHISE SALES MANAGER): Bypass graft is patent. First and 2nd tips of the toes is demarcated continue Betadine paint and referred to [facility] for further management of [...] 06/16/2022 Assessment & Plan (11/21/2022 9:12 PM FRANCHISE SALES MANAGER): Patient with history of tobacco abuse who [...] management. Assessment & Plan (11/10/2023 11:08 AM FRANCHISE SALES MANAGER): Impression: Chronic and stable. Plan: Continue losartan and amlodipine Assessment & Plan (08/14/2019 5:17 PM CDT): Per patient blood pressure remains well controlled. Continue current regimen per primary care physician Encounter for pre-operative cardiovascular clear ance 02/07/2017 Dyslipidemia 02/07/2017 Assessment & Plan (11/10/2023 11:08 AM FRANCHISE SALES MANAGER): Impression: Chronic and stable. Plan: Continue pravastatin [...] therapy. Assessment & Plan (11/10/2023 11:06 AM FRANCHISE SALES MANAGER): Impression: Patient is status post left TCAR. [...] statin. Assessment & Plan (11/21/2022 9:16 PM FRANCHISE SALES MANAGER): History of bilateral carotid stenoses. She remains [...] and potential surgical treatment options. Atherosclerosis of [place] teries of extremities with intermittent claudication, bilateral legs 12/16/2016 Assessment & Plan (11/08/2024 12:40 PM FRANCHISE SALES MANAGER): Impression: Patient is status post thrombectomy of [...] duplex. Assessment & Plan (11/10/2023 11:07 AM FRANCHISE SALES MANAGER): Impression: Patient has stable non disabling claudication [...] therapy. Assessment & Plan (11/21/2022 9:13 PM FRANCHISE SALES MANAGER): History of bilateral lower extremity arterial occlusive [...] arterial duplex surveillance performed in 6 months. Bence Harrington proteinuria 04/02/2015 Hyperlipidemia 04/02/2015 Pain in joint 04/02/2015 Encounters Date Type Department Care Team Description 01/22/2025 8:45 AM CDT Office Visit [facility] Vascular and Vein Surgery [address] [place] [phone] Hugo Nunez MD Gangrene (HCC) (Primary Dx) 01/22/2025 Orders Only [facility] Vascular and Vein Surgery [address] [place] [phone] Hugo Nunez MD Left toe amputee (Primary Dx) 01/15/2025 Documentation [facility] Vascular and Vein Surgery [address] [place] [phone] Karen Wang MA 01/15/2025 Telephone [facility] Vascular and Vein Surgery [address] [place] [phone] Michelle Tamez 01/09/2025 Telephone [facility] Vascular and Vein Surgery [address] [place] [phone] Hugo Nunez MD 01/04/2025 Telephone [facility] Vascular and Vein Surgery [address] [place] [phone] Elly Worthington 12/25/2024 Telephone [facility] Vascular and Vein Surgery [address] [place] [phone] Hugo Nunez MD Need verbal order for OT, PT, group home 12/19/2024 9:02 AM FRANCHISE SALES MANAGER Anesthesia Event [facility] OR [facility] [place] [address] Ender Sarah MD Bond, Jory Steven, MD 12/19/2024 8:55 AM FRANCHISE SALES MANAGER - 12/19/2024 10:20 AM FRANCHISE SALES MANAGER Surgery [facility] OR [address] [place] [address] Hugo Nunez MD LEFT FIRST AND SECOND TOE AMPUTATION 12/19/2024 6:53 AM FRANCHISE SALES MANAGER - 12/20/2024 5:31 PM FRANCHISE SALES MANAGER Hospital Encounter [facility] Center [address] [place] [address] Hugo Nunez MD [place], MD Luna Mccormack, Judson Meneses MD Gangrene of toe of left foot (HCC) (Primary Dx); 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; Other disorder of circulatory system; Gangrene (HCC); Acute postoperative pain of left foot; Peripheral vascular disease; Essential (primary) hypertension; Type 2 diabetes mellitus with hyperglycemia, without long-term current use of insulin (HCC); Diabetic peripheral neuropathy associated with type 2 diabetes mellitus (HCC); Mixed hyperlipidemia; Chronic obstructive pulmonary disease, unspecified COPD type (HCC); Normocytic hypochromic anemia; Anxiety and depression Discharge Disposition: Discharge to home, home health skilled care 11/29/2024 8:00 AM FRANCHISE SALES MANAGER Orders Only [facility] 2 Wound Care [address] [facility] [address] [place] [address] Ulcer of left lower extremity, unspecified ulcer stage (HCC) 11/29/2024 Documentation [facility] Vascular and Vein Surgery [address] [place] [address] [address] [place] [phone] Cindy Mann MA from Last 3 Months Immunizations Immunization Administration Dates Next Due Influenza, Quadrivalent, Spl it, Preservative Free, Intramuscular 08/30/2019,07/09/2018 Influenza, Trivalent, High D ose, Split, Preservative Free, Intramuscular 08/22/2024 Influenza, Trivalent, IM (MDV) 08/17/2021 Influenza, Trivalent, Preser vative Free, Intramuscular 07/22/2016,07/31/2015 Influenza, Unspecified 08/17/2021,2018,07/09/2018,07/29,07/22/2016,07/31/2015 Pneumococcal Conjugate 7-Valent 08/17/2018 Pneumococcal Polysaccharide PPV23 07/09/2018 Surgical History Surgery Date Site/Laterality Comments TUBAL LIGATION GANGLION CYST EXCISION Right thumb FEMORAL ENDARTERECTOMY 04/07/2017 with patch angioplasty- R fem-pop bypass FEMORAL ARTERY - POPLITEAL ARTERY BYPASS GRAFT 02/07/2018 L common femoral and profunda femoral endart with patch AORTIC ILIAC FEMORIAL ANGIOG HARI INTERVENTION 01/09/2018 Bilateral BLE angiogram AORTIC ILIAC FEMORIAL ANGIOG HARI INTERVENTION 01/28/2017 Bilateral angiogram- final cath position R common femoral WISDOM TOOTH EXTRACTION CAROTID STENT 03/21/2023 Left TCAR AORTIC ILIAC FEMORIAL ANGIOG HARI INTERVENTION 06/11/2024 Left Aortogram. Selective LLE angiogram w/ runoff ARTERIAL THROMBECTOMY 08/16/2024 Left Thromb LT CHEF & OWNER to TPT BPG. Thromb LT CHEF & OWNER & PFA. Thromb TPT & peroneal artery. Thromb LT AT. ARTERIAL THROMBECTOMY 08/14/2024 Left LT CHEF & OWNER to TPT bypass. Thromb LT CHEF & OWNER & PFA. Thromb pop, AT & TPT. Medical History Medical History Date Comments Osteomyelitis (HCC) Neuropathy HTN (hypertension) Hypercholesterolemia Emphysema of lung (HCC) Peripheral neuropathy to feet Thoracic spondylosis Lumbar spondylosis DDD (degenerative disc disease), thoracic DDD (degenerative disc disease), lumbar Sacroiliac joint pain DDD (degenerative disc disease), cervical Primary osteoarthritis of right shoulder Arthropathy of cervical facet joint DISH (diffuse idiopathic ske letal hyperostosis), cervical-abundant 10/01/2022 Type 2 diabetes mellitus (HCC) G limepiride only HL (hearing loss) no hearing aid s History of bronchitis Chronic pain Tooth missing 1 missing top fr ont HPV in female HPV Type 2 daily Acyclovir OA (osteoarthritis) Cataract Family History Medical History Relation Name Comments Diabetes Father Coronary artery disease Mother Diabetes Mother Heart disease Mother Hypertension Mother Relation Name Status Comments Father Mother Social History Tobacco Use Types Packs/Day Years Used Date Smoking Tobacco: Every Day Cigarettes 0.3 57 Started: 11/1967; Last attempted to quit: 08/2023 Smokeless Tobacco: Never Tobacco Cessation:Ready to Q uit: Not Asked; Counseling Given: Not Answered [facility] Utilities Answer Date Recorded In the past 12 months has [employer], oil, or water [employer] threatened to shut off services in your [...] often do you attend chur ch or scientology services? Never 12/20/2024 Do you belong to any clubs o r organizations such as mandaen groups, unions, fraternal or athletic groups, or [...] place to sleep or slept in a prison (including now)? No 03/22/2023 PHQ-9 Answer Date [...] any time in the past 12 m [facility], were you homeless or living in a prison (including now)? No 12/20/2024 Personal Safety Answer [...] file Not on file Not on file Obstetrics History Last Filed Vital Signs Vital Sign Reading Time Taken Comments Blood Pressure 136/65 12/20/2024 12:45 PM FRANCHISE SALES MANAGER Pulse 66 12/20/2024 12:45 PM FRANCHISE SALES MANAGER Temperature 36.8 C (98.2 F) 12/20/2024 12:45 PM FRANCHISE SALES MANAGER Respiratory Rate 18 12/20/2024 3:23 AM FRANCHISE SALES MANAGER Oxygen Saturation 96% 12/20/2024 12:45 PM FRANCHISE SALES MANAGER Inhaled Oxygen Concentration - - Weight 53.7 kg (118 lb 6.4 oz) 12/19/2024 7:00 A M FRANCHISE SALES MANAGER Height 162.6 cm (5' 4 ) 12/19/2024 7:00 AM FRANCHISE SALES MANAGER Body Mass Index 20.32 12/19/2024 7:00 AM FRANCHISE SALES MANAGER Plan of Treatment Health Maintenance Due Date Last Done Comments Albumin Creatinine Ratio, Urine 1955 Breast Cancer Screening-Mammogram 1955 Colon Cancer Screening-Colonoscopy 1955 Hepatitis C Screening 1955 Osteoporosis Screening-Bone Density Scan 1955 Dilated Eye Exam 1955 Foot Exam 1955 DTaP/Tdap/Td Vaccine (1 - Tdap) 02/18/1968 Hepatitis B Screening 1975 Zoster Vaccine (1 of 2) 2007 Well Visit 65+ 2022 Pneumococcal vaccine 65+ (3 of 3 - PCV20 or PCV21) 08/17/2023 08/17/2018, 07/09/2018 Hemoglobin A1C 06/22/2025 12/20/2024, 08/10/2024 Depression Screening 11/29/2025 11/29/2024, 11/29/2024, 08/30/2024, Additional history exists Fall Risk Assessment 12/20/2025 12/20/2024 Lipid Panel 12/20/2025 12/20/2024 eGFR 12/20/2025 12/20/2024, 03/0 02/2025, 09/12/2024, Additional history exists Influenza Vaccine Completed 08/22/2024, , 08/17/2021, Additional history exists Medical Devices Implanted Type Area Refractory Technician Device Identifier Shelf Expiration Date Model / Serial / Lot [employer] Truxton 6mm 80cm 60cm Removable Ring Stretch Thin Wall Graft [id number] - [id number] - [id number] Implanted:Qty: 1 on 08/14/2024 by García Park MD at [facility] Graft Left: Leg [employer] [id number] 12/31/2026 [id number] / [id number] / [employer] Flex 7mm .065in 40mm 57cm Delivery System Angle Tip [id number]-[id number] - [id number] Implanted:Qty: 1 on 03/21/2023 by García Park MD at [facility] Stent Left: Carotid [employer] [id number] 09/15/2024 [id number]-0740-[id number] S / / [id number] Description:Carotid Artery S tent Procedures Procedure Name Priority Date/Time Associated Diagnosis Comments POCT GLUCOSE DEVICE Routine 12/20/2024 1 2:44 PM FRANCHISE SALES MANAGER POCT GLUCOSE DEVICE Routine 12/20/2024 8 :37 AM FRANCHISE SALES MANAGER EGFR Routine 12/20/2024 6:57 AM FRANCHISE SALES MANAGER DIFFERENTIAL AUTO Routine 12/20/2024 6:5 7 AM FRANCHISE SALES MANAGER CBC WITH AUTO DIFFERENTIAL Routine 12/20/2024 6:57 AM FRANCHISE SALES MANAGER PHOSPHORUS Routine 12/20/2024 6:57 AM FRANCHISE SALES MANAGER MAGNESIUM Routine 12/20/2024 6:57 AM FRANCHISE SALES MANAGER COMPREHENSIVE METABOLIC PANEL Routine 12/20/2024 6:57 AM FRANCHISE SALES MANAGER HEMOGLOBIN A1C Routine 12/20/2024 6:57 AM FRANCHISE SALES MANAGER LIPID PANEL Routine 12/20/2024 6:57 AM FRANCHISE SALES MANAGER POCT GLUCOSE DEVICE Routine 12/19/2024 8 :13 PM FRANCHISE SALES MANAGER POCT GLUCOSE DEVICE Routine 12/19/2024 5 :44 PM FRANCHISE SALES MANAGER POCT GLUCOSE DEVICE Routine 12/19/2024 1 :30 PM FRANCHISE SALES MANAGER POCT GLUCOSE DEVICE Routine 12/19/2024 1 0:16 AM FRANCHISE SALES MANAGER SURGICAL PATHOLOGY Routine 12/19/2024 9: 26 AM FRANCHISE SALES MANAGER Gangrene (HCC) MN AN PROCEDURE PLACEHOLDER Routine 12/19/2024 9:10 AM FRANCHISE SALES MANAGER MN AN ELECTIVE SUPRAGLOTTIC AIRWAY Routine 12/19/2024 9:10 AM FRANCHISE SALES MANAGER AMPUTATION TOE 12/19/2024 9:02 AM FRANCHISE SALES MANAGER PERIPHERAL VASCULAR DISEASE WITH GANGRENE POCT GLUCOSE DEVICE Routine 12/19/2024 7 :41 AM FRANCHISE SALES MANAGER EGFR Routine 12/19/2024 7:40 AM FRANCHISE SALES MANAGER 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 DIFFERENTIAL AUTO Routine 12/19/2024 7:4 0 AM FRANCHISE SALES MANAGER 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 ANTIBODY SCREEN STAT 12/19/2024 7:40 AM FRANCHISE SALES MANAGER ABO/RH STAT 12/19/2024 7:40 AM FRANCHISE SALES MANAGER TYPE AND SCREEN STAT 12/19/2024 7:40 AM FRANCHISE SALES MANAGER APTT Routine 12/19/2024 7:40 AM FRANCHISE SALES MANAGER 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 Other disorder of circulatory system PROTIME-INR Routine 12/19/2024 7:40 AM FRANCHISE SALES MANAGER 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 CBC WITH AUTO DIFFERENTIAL Routine 12/19/2024 7:40 AM FRANCHISE SALES MANAGER 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 COMPREHENSIVE METABOLIC PANEL Routine 12/19/2024 7:40 AM FRANCHISE SALES MANAGER 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 from Last 3 Months Results * POCT glucose (12/20/2024 12:44 PM FRANCHISE SALES MANAGER) Glucose, POC 126 70 - 199 mg/dL Blood 12/20/2024 12:4 4 PM FRANCHISE SALES MANAGER 12/20/2024 12:44 PM FRANCHISE SALES MANAGER Julisa Kruse MD LAB POCT ORDERABLES - DEVICE Final Result [facility] [address] [facility] Department [place] [address] * POCT glucose (12/20/2024 8:37 AM FRANCHISE SALES MANAGER) Glucose, POC 150 70 - 199 mg/dL Blood 12/20/2024 8:37 AM FRANCHISE SALES MANAGER 12/20/2024 8:37 AM FRANCHISE SALES MANAGER Julisa Kruse MD LAB POCT ORDERABLES - DEVICE Final Result Performing Organization Address [facility] Co de Phone Number [facility] [address] [place] [address] * eGFR (12/20/2024 6:57 AM FRANCHISE SALES MANAGER) Pathologist [facility] eGFR 83 >=60 mL/min/1. 73 m2 Comment: [...] last reviewed 2021. Blood 12/20/2024 6:57 AM FRANCHISE SALES MANAGER 12/20/2024 7:12 AM FRANCHISE SALES MANAGER us Andrew Boyd NP LAB BLOOD ORDERABLES Final R esult Performing Organization Address City/[facility]/ZIP Co de Phone Number [facility] [address] Department [place] [address] * Differential, auto (12/20/2024 6:57 AM FRANCHISE SALES MANAGER) Pathologist [facility] Neutrophil abs 5.6 1.5 - 6.5 K/cumm Imm gran abs 0.0 0.0 - 0.1 K/cumm [facility] Lymphocyte abs 1.9 0.8 - 3.3 K/cumm [facility] Monocyte abs 0.6 0.2 - 0.8 K/cumm [facility] Eosinophil abs 0.2 0.0 - 0.5 K/cumm [facility] Basophil abs 0.0 0.0 - 0.1 K/cumm [facility] Neutrophil pct 68.0 % [facility] Comment: Interpretive Data Percent cell count reference ranges are not reported, since discordance with absolute values may lead to misinterpretation of CBC data. Current Interpretive Data was last revised on 2018. Imm gran pct 0.2 % [facility] Comment: Interpretive Data Percent cell count reference ranges are not reported, since discordance with absolute values may lead to misinterpretation of CBC data. Current Interpretive Data was last revised on 2018. Lymphocyte pct 22.3 % [facility] Comment: Interpretive Data Percent cell count reference ranges are not reported, since discordance with absolute values may lead to misinterpretation of CBC data. Current Interpretive Data was last revised on 2018. Monocyte pct 6.8 % [facility] Comment: Interpretive Data Percent cell count reference ranges are not reported, since discordance with absolute values may lead to misinterpretation of CBC data. Current Interpretive Data was last revised on 2018. Eosinophil pct 2.3 % [facility] Comment: Interpretive Data Percent cell count reference ranges are not reported, since discordance with absolute values may lead to misinterpretation of CBC data. Current Interpretive Data was last revised on 2018. Basophil pct 0.4 % [facility] Comment: Interpretive Data Percent cell count reference ranges are not reported, since discordance with absolute values may lead to misinterpretation of CBC data. Current Interpretive Data was last revised on 2018. Blood 12/20/2024 6:57 AM FRANCHISE SALES MANAGER 12/20/2024 7:12 AM FRANCHISE SALES MANAGER us Andrew Boyd NP LAB BLOOD ORDERABLES Final R esult [facility] [address] [facility] Department [place] [address] * (ABNORMAL) CBC with auto differential (12/20/2024 6:57 AM FRANCHISE SALES MANAGER) WBC 8.3 3.8 - 9.9 K/cumm Hgb 11.4(L) 11.9 - 15.5 g/dL [facility] Hct 36.9 35.6 - 45.5 % [facility] Plt 241 150 - 400 K/cumm [facility] MPV 11.1 9.1 - 12.3 fL [facility] RBC 3.90 3.90 - 5.20 M/cumm [facility] MCV 94.6 81.3 - 96.4 fL [facility] MCH 29.2 27.1 - 33.3 pg [facility] MCHC 30.9(L) 32.3 - 35.7 g/dL [facility] RDW CV 15.9(H) 11.1 - 14.9 % [facility] RDW SD 55.1(H) 35.7 - 48.1 fL [facility] NRBC abs 0.00 0.00 - 0.01 K/cumm [facility] Blood 12/20/2024 6:57 AM FRANCHISE SALES MANAGER 12/20/2024 7:12 AM FRANCHISE SALES MANAGER Andrew Boyd ACTIVITIES AIDE LAB BLOOD ORDERABLES Final R esult Performing Organization Address City/[facility] Co de Phone Number [address] [employer] [place] [address] * Phosphorus (12/20/2024 6:57 AM FRANCHISE SALES MANAGER) Pathologist [facility] Phosphorus, pl 3.4 2.3 - 4.5 mg/dL Blood 12/20/2024 6:57 AM FRANCHISE SALES MANAGER 12/20/2024 7:12 AM FRANCHISE SALES MANAGER Andrew Boyd ACTIVITIES AIDE LAB BLOOD ORDERABLES Final R esult Performing Organization Address [facility] Co de Phone Number [address] [employer] [place] [address] * Magnesium (12/20/2024 6:57 AM FRANCHISE SALES MANAGER) Pathologist [facility] Magnesium 1.9 1.4 - 2.5 mg/dL Blood 12/20/2024 6:57 AM FRANCHISE SALES MANAGER 12/20/2024 7:12 AM FRANCHISE SALES MANAGER Andrew Boyd ACTIVITIES AIDE LAB BLOOD ORDERABLES Final R esult Performing Organization Address [facility] Co de Phone Number [facility] [employer] [place] [address] * (ABNORMAL) Hemoglobin A1c (12/20/2024 6:57 AM FRANCHISE SALES MANAGER) Hgb A1C 7.3(H) 4.0 - 5.6 % Estimated Average Glucose 163 mg/dL [facility] Comment: The ADA recommends reporting an estimated Average Glucose (eAG) with all Hemoglobin A1c results using the equation derived from a study of 507 normal and diabetic adults. Minority populations were underrepresented and children were not included. (Diabetes Care 31:8029-9022, 2008). The eAG is not equivalent to a fasting glucose. Blood 12/20/2024 6:57 AM FRANCHISE SALES MANAGER 12/20/2024 7:12 AM FRANCHISE SALES MANAGER Andrew Boyd ACTIVITIES AIDE LAB BLOOD ORDERABLES Final R esult Performing Organization Address [facility] Co de Phone Number [facility] [employer] [place] [address] * (ABNORMAL) Lipid panel (12/20/2024 6:57 AM FRANCHISE SALES MANAGER) Cholesterol 129 30 - 199 mg/dL Comment: [...] NCEP Expert Panel. Circulation 2004;110:227 3. Blayne Ryder al. CAROLEE Cardiol. 2020 February 14;5(5):540-548. doi: 10.1001/jamacardio.2020.0013 Current Interpretive Data was [...] last revised on 2018. Chol/HDL ratio 3 [facility] Blood 12/20/2024 6:57 AM FRANCHISE SALES MANAGER 12/20/2024 7:12 AM FRANCHISE SALES MANAGER us Andrew Boyd NP LAB BLOOD ORDERABLES Final R esult [facility] [address] [facility] Department [place] [address] * Comprehensive metabolic panel (12/20/2024 6:57 AM FRANCHISE SALES MANAGER) Sodium 142 135 - 145 mmol/L Potassium, pl 4.3 3.3 - 4.9 mmol/L [facility] Chloride 106 97 - 110 mmol/L [facility] CO2 28 22 - 32 mmol/L [facility] Anion gap 8 2 - 15 mmol/L [facility] BUN 14 6 - 25 mg/dL [facility] Creatinine 0.78 0.60 - 1.10 mg/dL [facility] Glucose 130 70 - 199 mg/dL [facility] Comment: Interpretive Data Fasting glucose >/= 126 [...] 2022. Calcium 8.9 8.5 - 10.3 mg/dL [facility] Bilirubin, total <0.2 0.1 - 1.2 mg/dL [facility] Protein, pl 6.6 6.5 - 8.5 g/dL [facility] Albumin 3.7 3.5 - 5.0 g/dL [facility] Alk phos 63 40 - 130 Units/L [facility] ALT 10 7 - 45 Units/L [facility] AST 20 10 - 45 Units/L [facility] Blood 12/20/2024 6:57 AM FRANCHISE SALES MANAGER 12/20/2024 7:12 AM FRANCHISE SALES MANAGER Andrew Boyd ACTIVITIES AIDE LAB BLOOD ORDERABLES Final R esult Performing Organization Address City/[facility]/ZIP Co de Phone Number [address] [employer] [place] [address] * POCT glucose (12/19/2024 8:13 PM FRANCHISE SALES MANAGER) Glucose, POC 138 70 - 199 mg/dL Blood 12/19/2024 8:13 PM FRANCHISE SALES MANAGER 12/19/2024 8:13 PM FRANCHISE SALES MANAGER Julisa Kruse MD LAB POCT ORDERABLES - DEVICE Final Result Performing Organization Address City/[facility] Co de Phone Number [address] [employer] [place] [address] * POCT glucose (12/19/2024 5:44 PM FRANCHISE SALES MANAGER) Glucose, POC 155 70 - 199 mg/dL Blood 12/19/2024 5:44 PM FRANCHISE SALES MANAGER 12/19/2024 5:44 PM FRANCHISE SALES MANAGER Julisa Kruse MD LAB POCT ORDERABLES - DEVICE Final Result Performing Organization Address [facility] Co de Phone Number [address] [employer] [place] [address] * POCT glucose (12/19/2024 1:30 PM FRANCHISE SALES MANAGER) Glucose, POC 137 70 - 199 mg/dL Blood 12/19/2024 1:30 PM FRANCHISE SALES MANAGER 12/19/2024 1:30 PM FRANCHISE SALES MANAGER us Julisa Kruse MD LAB POCT ORDERABLES - DEVICE Final Result Performing Organization Address [facility] de Phone Number HAR[address] [address] * POCT glucose (12/19/2024 10:16 AM FRANCHISE SALES MANAGER) Glucose, POC 157 70 - 199 mg/dL Blood 12/19/2024 10:1 6 AM FRANCHISE SALES MANAGER 12/19/2024 10:16 AM FRANCHISE SALES MANAGER us Hugo Nunez MD LAB POCT ORDERABLES - DEVIC E Final Result Performing Organization Address [facility] Phone Number HAR[facility] Department [place] [address] * Surgical pathology (12/19/2024 9:26 AM FRANCHISE SALES MANAGER) Tissue specimen (specimen) (Amputation non-tramatic) 12/19/2024 9:26 AM FRANCHISE SALES MANAGER Narrative PATHOLOGY [facility] - 12/24/2024 7:[address] [facility] Department of Pathology [address] [place] [id number] Note to Patients: This report may contain [...] : 1955 (Age: 69) Gender: F Address: [address] [place] [address] [place] [employer] [facility] #: [id number] Service: Vascular Location: Patient Type: [facility] OP IN BED Taken: 12/19/2024 Received: 12/19/2024 [...] for gross examination only. JAQUELIN Schafer, PA ([facility]) Microscopic slide review and interpretation for this case was performed at [facility], Department of Surgical Pathology, [address] [facility] [place], [place] [id number], [place] [address] CLIA # [id number] us Hugo Nunez MD LAB PATHOLOGY ORDERABLES Fi nal Result Performing Organization Address City/[facility]/ZIP Co de Phone Number PATHOLOGY [facility] * [place] AN ELECTIVE SUPRAGLOTTIC AIRWAY, [place] AN PROCEDURE PLACEHOLDER (12/19/2024 9:10 AM FRANCHISE SALES MANAGER) Narrative Dionicio Barnard CRNA - 12/19/2024 9:10 AM FRANCHISE SALES MANAGER Dionicio Barnard CRNA 12/19/2024 9:10 AM Airway Patient location: OR Urgency: elective Indications for airway management: anesthesia Difficult airway: no Staff: Placed by: FACSIMILE OPERATOR: Dionicio Barnard CRNA Emergent airway documentation: Risks [...] Result * POCT glucose (12/19/2024 7:41 AM FRANCHISE SALES MANAGER) Glucose, POC 155 70 - 199 mg/dL Blood 12/19/2024 7:41 AM FRANCHISE SALES MANAGER 12/19/2024 7:41 AM FRANCHISE SALES MANAGER Hugo Nunez MD LAB POCT ORDERABLES - DEVIC E Final Result Performing Organization Address City/[facility] Co de Phone Number [address] Department [place] [address] * eGFR (12/19/2024 7:40 AM FRANCHISE SALES MANAGER) eGFR 80 >=60 mL/min/1. 73 m2 Comment: [...] last reviewed 2021. Blood 12/19/2024 7:40 AM FRANCHISE SALES MANAGER 12/19/2024 7:48 AM FRANCHISE SALES MANAGER us Hugo Nunez MD LAB BLOOD ORDERABLES Final Result [place] [id number] [facility] Department [place] [address] * Differential, auto (12/19/2024 7:40 AM FRANCHISE SALES MANAGER) Pathologist [facility] Neutrophil abs 6.2 1.5 - 6.5 K/cumm Imm gran abs 0.0 0.0 - 0.1 K/cumm [facility] Lymphocyte abs 1.8 0.8 - 3.3 K/cumm [facility] Monocyte abs 0.7 0.2 - 0.8 K/cumm [facility] Eosinophil abs 0.1 0.0 - 0.5 K/cumm [facility] Basophil abs 0.0 0.0 - 0.1 K/cumm [facility] Neutrophil pct 69.7 % [facility] Comment: Interpretive Data Percent cell count reference ranges are not reported, since discordance with absolute values may lead to misinterpretation of CBC data. Current Interpretive Data was last revised on 2018. Imm gran pct 0.2 % [facility] Comment: Interpretive Data Percent cell count reference ranges are not reported, since discordance with absolute values may lead to misinterpretation of CBC data. Current Interpretive Data was last revised on 2018. Lymphocyte pct 20.5 % [facility] Comment: Interpretive Data Percent cell count reference ranges are not reported, since discordance with absolute values may lead to misinterpretation of CBC data. Current Interpretive Data was last revised on 2018. Monocyte pct 7.8 % [facility] Comment: Interpretive Data Percent cell count reference ranges are not reported, since discordance with absolute values may lead to misinterpretation of CBC data. Current Interpretive Data was last revised on 2018. Eosinophil pct 1.5 % [facility] Comment: Interpretive Data Percent cell count reference ranges are not reported, since discordance with absolute values may lead to misinterpretation of CBC data. Current Interpretive Data was last revised on 2018. Basophil pct 0.3 % [facility] Comment: Interpretive Data Percent cell count reference ranges are not reported, since discordance with absolute values may lead to misinterpretation of CBC data. Current Interpretive Data was last revised on 2018. Blood 12/19/2024 7:40 AM FRANCHISE SALES MANAGER 12/19/2024 7:48 AM FRANCHISE SALES MANAGER Hugo Nunez MD LAB BLOOD ORDERABLES Final Result [facility] [address] [facility] Department [place] [address] * (ABNORMAL) CBC with auto differential (12/19/2024 7:40 AM FRANCHISE SALES MANAGER) WBC 8.9 3.8 - 9.9 K/cumm Hgb 13.0 11.9 - 15.5 g/dL [facility] Hct 40.5 35.6 - 45.5 % [facility] Plt 281 150 - 400 K/cumm [facility] MPV 11.1 9.1 - 12.3 fL [facility] RBC 4.40 3.90 - 5.20 M/cumm [facility] MCV 92.0 81.3 - 96.4 fL [facility] MCH 29.5 27.1 - 33.3 pg [facility] MCHC 32.1(L) 32.3 - 35.7 g/dL [facility] RDW CV 15.9(H) 11.1 - 14.9 % [facility] RDW SD 53.9(H) 35.7 - 48.1 fL [facility] NRBC abs 0.00 0.00 - 0.01 K/cumm [facility] Blood 12/19/2024 7:40 AM FRANCHISE SALES MANAGER 12/19/2024 7:48 AM FRANCHISE SALES MANAGER Hugo Nunez MD LAB BLOOD ORDERABLES Final Result Performing Organization Address [facility] de Phone Number [address] [address] * ABO/Rh (12/19/2024 7:40 AM FRANCHISE SALES MANAGER) ABO/Rh O Positive Blood 12/19/2024 7:40 AM FRANCHISE SALES MANAGER 12/19/2024 7:46 AM FRANCHISE SALES MANAGER Hugo Nunez MD LAB BLOOD BANK TEST ORDERAB LES Final Result Performing Organization Address [facility] Phone Number [address] [address] * aPTT (12/19/2024 7:40 AM FRANCHISE SALES MANAGER) Pathologist [facility] aPTT 23 22 - 37 sec Comment: Interpretive data aPTT test has not been evaluated for monitoring heparin therapy. The anti-Xa is the preferred test. Current interpretive data was last revised on 2019. Blood 12/19/2024 7:40 AM FRANCHISE SALES MANAGER 12/19/2024 7:48 AM FRANCHISE SALES MANAGER Hugo Nunez MD LAB BLOOD ORDERABLES Final Result Performing Organization Address [facility] de Phone Number [address] [address] * Protime-INR (12/19/2024 7:40 AM FRANCHISE SALES MANAGER) PT 12.9 12.0 - 14.6 sec INR 1.0 0.9 - 1.2 [facility] Comment: Ref Range High Interpretive data Oral anticoagulant therapeutic ranges: Venous thromboembolism prophylaxis or treatment: 2.0-3.0 CARDIOLOGY Standard range: 2.0-3.0 High-intensity range: 2.5-3.5 Refer to indication-specific guidelines for appropriate target ranges for prosthetic heart valve replacement. Current interpretive data was last revised on 2019. Blood 12/19/2024 7:40 AM FRANCHISE SALES MANAGER 12/19/2024 7:48 AM FRANCHISE SALES MANAGER Hugo Nunez MD LAB BLOOD ORDERABLES Final Result Performing Organization Address [facility] Co de Phone Number [address] [address] * Antibody screen (12/19/2024 7:40 AM FRANCHISE SALES MANAGER) Ruddy, indirect, Gel Interpretation Negative ABSC Blood 12/19/2024 7:40 AM FRANCHISE SALES MANAGER 12/19/2024 7:46 AM FRANCHISE SALES MANAGER Hugo Nunez MD LAB BLOOD BANK TEST ORDERAB LES Final Result Performing Organization Address [facility] Phone Number [address] [address] * Comprehensive metabolic panel (12/19/2024 7:40 AM FRANCHISE SALES MANAGER) Pathologist [facility] Sodium 140 135 - 145 mmol/L Potassium, pl 3.9 3.3 - 4.9 mmol/L [facility] Comment:Hemolyzed; Potassium value may be falsely elevated by as much as 1.0 mmol/L. Suggest redraw and reanalysis. Chloride 103 97 - 110 mmol/L [facility] CO2 23 22 - 32 mmol/L [facility] Anion gap 14 2 - 15 mmol/L [facility] BUN 20 6 - 25 mg/dL [facility] Creatinine 0.81 0.60 - 1.10 mg/dL [facility] Glucose 153 70 - 199 mg/dL [facility] Comment: Interpretive Data Fasting glucose >/= 126 [...] 2022. Calcium 9.9 8.5 - 10.3 mg/dL [facility] Bilirubin, total 0.2 0.1 - 1.2 mg/dL [facility] Protein, pl 7.5 6.5 - 8.5 g/dL [facility] Albumin 4.2 3.5 - 5.0 g/dL [facility] Alk phos 76 40 - 130 Units/L [facility] ALT 14 7 - 45 Units/L [facility] AST See Comment 10 [facility] Comment:Credited; Hemolyzed Specimen Blood 12/19/2024 7:40 AM FRANCHISE SALES MANAGER 12/19/2024 7:48 AM FRANCHISE SALES MANAGER Hugo Nunez MD LAB BLOOD ORDERABLES Final Result Performing Organization Address City/State/ZIP Co nh Phone Number [place] [phone] [facility] Department [place] [address] from Last 3 Months Insurance IDPA AETNA MEDICARE GOLD AETNA MEDICARE GOLD AETNA MEDICARE GOLD Advance Directives For more information, please contact: [phone] * Full Code (Latest Code Status on [...] 3:08 AM 08/14/2024 4:56 PM Care Teams Wad Impregnator Relationship Specialty Start Date End Date Asif Donald MD [address] [address] PCP - General Emergency Medicine 08/22/24 García Park MD [address] [facility] [address] [place] [address] [address] Surgeon Vascular Surgery 10/29/22 Terrance Pollard MD [address] [facility] [address] [place] [address] [address] Consulting Physician Cardiovascular Disease 03/16/23 Talat Walsh MD [address] [place] [address] Referring Physician Internal Medicine 03/16/23 Antonio Donaldson MD [address] [id number] Referring Physician Nephrology 12/13/24 Hugo Nunez MD [address] [facility] [address] [place] [address] [address] Consulting Physician Vascular Surgery 12/19/24
--- OUTSIDE RECORDS SUMMARY | 2025-02-11 15:31 | XMS_ITS | Clinical Summary ---
Author Organization [facility] Address [address] [place] [address] Care Team Providers Care Storage Specialist Name Role Phone Asif Donald MD Primary Care Provider [phone] Allergies Active Allergy Reactions Criticality Noted Date Comments Codeine Hives,Itching,Unknown 10/27/2015 Tramadol Itching,Nausea and Vomiting,Rash Medium rash/itching Medications calcium carbonate-brooklynn min D (OSCAL + D) 500-200 MG-UNIT Tab tablet Active amlodipine 5 MG tablet 6 Active glimepiride 4 MG tablet Take 0.5 tablets (2 mg total) by mouth every morning before breakfast. 6 Active [place]-3 Fatty Acids (FISH OIL) 645 MG Cap Active vitamin D3, cholecalcifero l, 25 MCG (1000 UT) capsule 6 Active calcium carbonate (OS-ISRAEL) 600 MG tablet 6 Active clopidogrel 75 MG tablet Take 1 tablet (75 mg total) by mouth daily. 1 9 Active gabapentin 100 MG capsule TAKE 3 CAPSULES BY MOUTH TWICE DAILY NEEDED 9 Active acyclovir 800 MG tablet Take 1 tablet (800 mg total) by mouth daily. 3 9 Active aspirin EC (ASPIRIN EC) 81 MG tablet 7 Active losartan 100 MG tablet 5 Active fish oil 1000 MG Cap capsule 5 Active paroxetine 20 MG tablet Take 1 tablet (20 mg total) by mouth daily. 9 Active sertraline (ZOLOFT) 50 MG tablet 7 Active simvastatin 40 MG tablet 5 Active acyclovir (ZOVIRAX) 800 MG tablet 1 tablet (800 mg total) 2 (two) times daily. Active amLODIPine (NORVASC) 10 MG tablet 1 tablet (10 mg total) daily. Active pravastatin (PRAVACHOL) 40 MG tablet Take 1 tablet (40 mg total) by mouth daily. 1 Active Spacer/Aero-Ho lding Chambers (EQ SPACE CHAMBER ANTI-STATIC L) Device see administration instructions. 2 Active alendronate (FOSAMAX) 35 MG tablet TAKE 1 TABLET BY MOUTH ONCE A WEEK. TAKE 30 MINUTES BEFORE THE FIRST FOOD, BEVERAGE, OR MEDICINE OF THE DAY WITH PLAIN WATER 2 Active Budeson-Glycop yrrol-Formoter ol (BREZTRI AEROSPHERE) 160-9-4.8 MCG/ACT AerosolIndicat ions:Abnormal PFT Inhale 2 puffs into the lungs 2 (two) times a day. 10.7 g 6 2 Active albuterol sulfate HFA 108 (90 Base) MCG/ACT inhalerIndicat ions:Abnormal PFT Inhale 2 puffs into the lungs every 4 (four) hours as needed for Wheezing or Shortness of breath. 18 g 4 2 Active Budeson-Glycop yrrol-Formoter ol (BREZTRI AEROSPHERE) 160-9-4.8 MCG/ACT AerosolIndicat ions:Abnormal PFT Inhale 2 puffs into the lungs 2 (two) times a day. 32.1 g 2 3 Active albuterol sulfate HFA 108 (90 Base) MCG/ACT inhalerIndicat ions:Abnormal PFT Inhale 2 puffs into the lungs every 6 (six) hours as needed for Wheezing. 18 g 2 3 Active HYDROcodone-ac etaminophen (NORCO) 5-325 MG tablet TAKE 2 TABLETS BY MOUTH EVERY 4 HOURS NEEDED FOR PAIN Active ipratropium-al buterol (DUONEB) 0.5-2.5 (3) MG/3ML SolutionIndica tions:COVID-19 Take 3 mLs by nebulization every 6 (six) hours as needed. 360 mL 1 3 Active Active Problems Problem Noted Date Diagnosed Date Multiple pulmonary nodules 04/12/2023 Cigarette nicotine dependenc e with nicotine-induced disorder 06/16/2022 Physical deconditioning 06/16/2022 COVID-19 06/16/2022 Marijuana abuse 06/16/2022 Abnormal PFT 06/16/2022 Sacroiliitis 11/18/2017 Lumbar facet arthropathy 09/01/2017 Immunizations Immunization Administration Dates Next Due Influenza (Generic) 07/22/2016,07/31/2015 Influenza Adult (Generic) 08/17/2021,08/30/2019, 07/09/2018,07/29/2017 Pneumococcal (Pneumovax 23) 07/09/2018 Pneumococcal (Prevnar 7) 08/17/2018 Family History Medical History Relation Comments Diabetes Father Arthritis Mother Asthma Mother Diabetes Mother Heart Disease Mother Hypertension Mother Relation Status Comments Father Mother Social History Tobacco Use Types Packs/Day Years Used Date Smoking Tobacco: Every Day Cigarettes 0.5 45 Smokeless Tobacco: Never Tobacco Cessation:Ready to Q uit: No; Counseling Given: Yes Alcohol Use Standard Drinks/Week Comments No 0 (1 standard drink = 0.6 oz pur e alcohol) PHQ-2 Answer Date Recorded Patient Health Questionnaire-2 Score 0 10/04/2022 Comments No Sex and Gender Information Value Date Recorded Sex Assigned at Not on file Legal Sex Female 3:01 PM COLLAR CUTTER Gender Identity Not on file Sexual Orientation Not on file 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 Not on file Not on yesenia e Not on file Last Filed Vital Signs Vital Sign Reading Time Taken Comments Blood Pressure 180/98 04/12/2023 11:07 AM CDT Pulse 83 04/12/2023 10:48 AM CDT Temperature 36.6 C (97.8 F) 04/12/2023 10:48 AM CDT Respiratory Rate 16 04/12/2023 10:48 AM CDT Oxygen Saturation 97% 04/12/2023 10:48 AM CDT ra Inhaled Oxygen Concentration - - Weight 59.9 kg (132 lb) 04/12/2023 10:48 AM CDT Height 162.6 cm (5' 4 ) 04/12/2023 10:48 AM CDT Body Mass Index 22.66 04/12/2023 10:48 AM CDT Plan of Treatment Health Maintenance Due Date Last Done Comments Colorectal Cancer Screening Colonoscopy (10 Years) 1957 Hepatitis C 1975 DTaP, Tdap and Td Vaccines ( 1 - Tdap) 02/18/1976 Mammogram Screening 1997 Zoster Vaccines (1 of 2) 2007 Pneumococcal Vaccine: 50+ Years (2 of 2 - PCV) 08/17/2019 08/17/2018, 07/09/2018 Annual Medicare Wellness Visit 2022 Dexa Scan (General) 2022 COVID-19 Vaccine (4 - 2023-2 5 season) 2024 12/05/2021, 05/29/2021, 05/01/2021 PHQ-2 (Physician [place]) 10/17/2024 RSV Immunization or 60+ Years (1 - 1-dose 75+ series) 02/18/2032 Meningococcal B Vaccine Aged Out No l onger eligible based on patient's age to complete this topic Meningococcal Vaccine Aged Out No lorna minnie eligible based on patient's age to complete this topic RSV Immunizations Under 20 Months Aged Out No longer eligible b ased on patient's age to complete this topic Insurance AETNA MEDICAID Care Teams Storage Specialist Relationship Specialty Start Date End Date Asif Donald MD [address] [address] PCP - General FAMILY PRACTICE 08/19/18
--- OUTSIDE RECORDS SUMMARY | 2025-02-11 15:31 | XMS_ITS | Encounter Summary ---
Author Organization [facility] Facility Care Team Providers Care Aerographer Name Role Phone Basil Lua MD Primary Care Provider [phone] Asif Donald MD Primary Care Provider [phone] García Park MD Unavailable [phone] Terrance Pollard MD Unavailable Talat Walsh MD Unavailable [phone] Asif Donald MD Primary Care Provider [phone] Antonio Donaldson MD Unavailable [phone] Hugo Nunez MD Unavailable [phone] Encounter Details Date Type Department Care Team (Latest Contact Info) Description 01/28/2017 Orders Only [facility] CLINCONV Provider, MD Shantell [address] [place] [address] Social History Tobacco Use Types Packs/Day [...] Priority Date/Time Associated Diagnosis Comments SCAN - LABS 02/07/2017 12:00 AM CDT PROCEDURE - RESULT 01/18/2017 12 :00 AM CDT documented in this encounter Results * SCAN - LABS (02/07/2017 12:00 AM CDT) Narrative 02/07/2017 12:00 AM CDT Ordered by an unspecified provider. Historical Provider Final Res ult * PROCEDURE - RESULT (01/18/2017 12:00 AM CDT) Narrative 01/18/2017 12:00 AM CDT Ordered by an unspecified provider. Historical Provider Final Res ult documented in this encounter Visit Diagnoses Not on filedocumented in this encounter Care Teams Aerographer Relationship Specialty Start Date End Date Basil Lua MD [address] [place] [address] PCP - General 01/03/19 03/22/19 Asif Donald MD [address] [place] [address] PCP - General 03/23/19 08/21/24 Asif Donald MD [address] [address] PCP - General Emergency Medicine 08/22/24 García Park MD [address] [facility] [address] [place] [address] Surgeon Vascular Surgery 10/29/22 Terrance Pollard MD [address] [facility] [address] [place] [place] [address] Consulting Physician Cardiovascular Disease 03/16/23 Talat Walsh MD [address] [place] [address] [place] [address] Referring Physician Internal Medicine 03/16/23 Antonio Donaldson MD [address] [facility] [address] [facility] [address] [place] [address] Referring Physician Nephrology 12/13/24 Hugo Nunez MD [address] [facility] [address] [place] [address] Consulting Physician Vascular Surgery 12/19/24 documented as of this encounter
--- NOTE | 2025-02-11 17:35 | PC.NURSE ---
Pt MSE'ed, states she is unable to provide a urine sample at this time.
[2025-02-11 17:50] LABS: Basophils Absolute Auto 0.1 K/mm3 (0.0-0.1); Basophils Percent Auto 0.4 % (0.2-1.2); Eosinophils Percent Auto 0.2 % (0-4.4); Hematocrit 38.9 % (37.0-47.0); Hemoglobin 12.2 g/dL (12.0-15.0); Immature Granulocyte Absolute 0.34 K/mm3 (0.00-0.031); Immature Granulocyte Percent A 2.1 % (0-0.5); Lymphocytes Absolute Auto 1.34 K/mm3 (0.9-3.2); Lymphocytes Percent Auto 8.2 % (18.3-44.2); Mean Corpuscular HGB Conc 31.4 g/dl (32-36); Mean Corpuscular Hemoglobin 29.6 pg (26-34); Mean Corpuscular Volume 94.4 fl (80-100); Mean Platelet Volume 10.1 fl (7.4-10.4); Monocytes Percent Auto 5.9 % (2.6-8.5); Neutrophils Absolute Auto 13.6 K/mm3 (1.3-6.7); Neutrophils Percent Auto 83.2 % (45.5-73.1); Platelet Count Result 600 k/mm3 (150-375); Red Blood Count 4.12 M/mm3 (4.2-5.4); White Blood Count 16.3 K/mm3 (4.5-10.0)
[2025-02-11 18:01] LABS: Alanine Aminotransferase 47 U/L (6-35); Albumin Level 4.1 g/dL (3.5-5.1); Alkaline Phosphatase 114 U/L (38-126); Anion Gap 10 mmol/L (4-12); Aspartate Amino Transferase 35 U/L (14-36); Bilirubin,Total 0.6 mg/dL (0.2-1.3); Blood Urea Nitrogen 13 mg/dL (7-17); Calcium 9.5 mg/dL (8.4-10.2); Carbon Dioxide 31 mmol/L (22-30); Chloride 98 mmol/L (98-107); Estimated CRCL calculation 34 ml/min; Estimated Glomerular Filt Rate 48; Glucose 189 mg/dL (65-110); Sodium 139 mmol/L (137-145)
[2025-02-11 18:28] LABS: Influenza A QL RT-PCR Negative (Negative); Influenza B QL RT-PCR Negative (Negative); RSV RNA, RT-PCR Negative (Negative); SARS-CoV-2 RNA PCR Negative (Negative)
--- NOTE | 2025-02-11 19:15 | PC.NURSE ---
Patient asked for urine sample during bedside report and stated she will try again after she receives some fluids.
--- OUTSIDE RECORDS SUMMARY | 2025-02-11 19:25 | XMS_ITS | Clinical Summary ---
Author Organization [facility] Address [address] [place] [address] Care Team Providers Care Talent Acquisition Project Manager Name Role Phone Omid Burton MD Unavailable [phone] Unknown, Provider Primary Care Provider Unavaila ble Source Comments [facility],non-owned Affiliates and Associated Physician Practices is amultiple site organization consisting of ambulatory clinics and hospital sitesin [place], [place], [place] and [place]. This disclosure is being madepursuant to the Care Everywhere program and may not contain all information available regarding this patient. Last updated 18.[facility] Allergies Active Allergy Reactions Criticality Noted Date [...] MG tablet every 7 days 5 Active [place]-3 Fatty Acids (FISH OIL PO) Take by mouth 3 times daily Active lidocaine (XYLOCAINE) 1 % injectionIndica tions:Myofascia l pain 1ml -3ml for intra muscular use. 6 Active Additional Information Patient not taking.Reported on 04/26/2023 HYDROcodone-cleve taminophen ([place]) 5-325 MG tablet Take 1 (one) tablet [...] 11/18/2017 Peripheral vascular disease 01/05/2017 Atherosclerosis of [place] ar teries of extremities with intermittent claudication, [...] on file Legal Sex Female 2:41 PM NEGOTIATOR Gender Identity Not on file Sexual Orientation Not on file Last Filed Vital Signs Vital Sign Reading Time Taken Comments Blood Pressure 154/78 04/26/2023 2:58 PM CDT Pulse 63 04/26/2023 2:58 PM CDT Temperature 36.4 C (97.5 F) 04/26/2023 2:58 PM CDT Respiratory Rate 18 11/18/2022 2:23 PM NEGOTIATOR Oxygen Saturation 95% 04/26/2023 2:58 PM CDT [...] topic Insurance AETNA MEDICARE ADV Care Teams Talent Acquisition Project Manager Relationship Specialty Start Date End Date Unknown, Provider [address] [place] [address] PCP - General 02/04/23 [place] [address] [place] [address] Anesthesiology-Pain Management 10/27/15
--- OUTSIDE RECORDS SUMMARY | 2025-02-11 19:25 | XMS_ITS | CONTINUITY OF CARE DOCUMENT ---
Author Name leigha ahuja Address Unknown Organization [facility] Address [address] [place] [address] [address] [place] [address] Phone [phone] Care Team Providers Care Ticket Sorter Name Role Phone Josiah Delcid MD Unavailable [phone] CHUCHO CISSE MD Unavailable [phone] CHUCHO CISSE MD Unavailable [phone]
--- OUTSIDE RECORDS SUMMARY | 2025-02-11 19:25 | XMS_ITS | Clinical Summary ---
Author Organization [facility] Address [address] [place] [address] Care Team Providers Care Appliance Technician Name Role Phone Asif Donald MD Primary Care Provider Allergies Active Allergy Reactions Criticality Noted Date Comments Codeine Hives,Itching,Unknown 10/27/2015 Tramadol Itching,Nausea and Vomiting,Rash Medium rash/itching Medications calcium carbonate-brooklynn min D (OSCAL + D) 500-200 MG-UNIT Tab tablet Active amlodipine 5 MG tablet 6 Active glimepiride 4 MG tablet Take 0.5 tablets (2 mg total) by mouth every morning before breakfast. 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
--- OUTSIDE RECORDS SUMMARY | 2025-02-11 19:25 | XMS_ITS | Encounter Summary ---
Author Organization [facility] Facility Care Team Providers Care Washery Engineer Name Role Phone Basil Lua MD Primary Care Provider [phone] Asif Donald MD Primary Care Provider [phone] García Pakr MD Unavailable [phone] Terrance Pollard MD Unavailable Talat Walsh MD Unavailable [phone] Asif Donald MD Primary Care Provider [phone] Antonio Donaldson MD Unavailable [phone] Hugo Nunez MD Unavailable [phone] Encounter Details Date Type Department Care Team (Latest Contact Info) Description 02/07/2018 Orders Only [facility] CLINCONV Provider, MD Shantell [address] [place] [address] Social History Tobacco Use Types Packs/Day [...] on filedocumented in this encounter Care Teams Washery Engineer Relationship Specialty Start Date End Date Basil Lua MD [address] [place] [address] PCP - General 01/03/19 03/22/19 Asif Donald MD [address] [place] [address] PCP - General 03/23/19 08/21/24 Asif Donald MD [address] [address] PCP - General Emergency Medicine 08/22/24 García Park MD [address] [facility] [address] [facility] [place] [address] Surgeon Vascular Surgery 10/29/22 Terrance Pollard MD [address] [facility] [address] [place] [address] Consulting Physician Cardiovascular Disease 03/16/23 Talat Walsh MD [address] [place] [address] [place] [address] Referring Physician Internal Medicine 03/16/23 Antonio Donaldson MD [address] [facility] [address] [email or web address] [address] [place] [address] Referring Physician Nephrology 12/13/24 Hugo Nunez MD [address] [facility] [address] [place] [address] Consulting Physician Vascular Surgery 12/19/24 documented as of this encounter
--- OUTSIDE RECORDS SUMMARY | 2025-02-11 19:25 | XMS_ITS | Encounter Summary ---
Author Organization [facility] Facility Care Team Providers Care Nurse Advisor Name Role Phone Basil Lua MD Primary Care Provider [phone] Asif Donald MD Primary Care Provider [phone] García Park MD Unavailable [phone] Terrance Pollard MD Unavailable Talat Walsh MD Unavailable [phone] Asif Donald MD Primary Care Provider [phone] Antonio Donaldson MD Unavailable [phone] Hugo Nunez MD Unavailable [phone] Encounter Details Date Type Department Care Team (Latest Contact Info) Description 04/07/2017 Orders Only [facility] Provider, MD Sh[place] [address] [place] [id number] Social History Tobacco Use Types Packs/Day [...] on filedocumented in this encounter Care Teams Nurse Advisor Relationship Specialty Start Date End Date Basil Lua MD [address] [place] [address] PCP - General 01/03/19 03/22/19 Asif Donald MD [address] [place] [address] PCP - General 03/23/19 08/21/24 Asif Donald MD [address] [address] PCP - General Emergency Medicine 08/22/24 García Park MD [address] [place] [facility] [place] [address] Surgeon Vascular Surgery 10/29/22 Terrance Pollard MD [address] [place] [address] Consulting Physician Cardiovascular Disease 03/16/23 Talat Walsh MD [address] [place] [address] [place] [address] Referring Physician Internal Medicine 03/16/23 Antonio Donaldson MD [address] [facility] [address] [facility] [address] [place] [address] Referring Physician Nephrology 12/13/24 Hugo Nunez MD [address] [facility] [address] [place] [address] Consulting Physician Vascular Surgery 12/19/24 documented as of this encounter
--- OUTSIDE RECORDS SUMMARY | 2025-02-11 19:25 | XMS_ITS | Clinical Summary ---
Author Organization [facility] Address [address] [facility], [address] [address] Phone Care Team Providers Care Feather Shaper Name Role Phone Asif Donald MD Primary Care Provider [phone] Allergies No known active allergies Medications gabapentin [...] patient's age to complete this topic Insurance [facility] Care Teams Feather Shaper Relationship Specialty Start Date End Date Asif Donald MD [address] [address] PCP - General Family Medicine 11/03/16
--- OUTSIDE RECORDS SUMMARY | 2025-02-11 19:25 | XMS_ITS | Clinical Summary ---
Author Organization [facility] [place] [facility] Address [address] [place] [address] Care Team Providers Care Import Export Coordinator Name Role Phone García Park MD Unavailable [phone] Terrance Pollard MD Unavailable Talat Walsh MD Unavailable [phone] Asif Donald MD Primary Care Provider [phone] Antonio Donaldson MD Unavailable [phone] Hugo Nuenz MD Unavailable [phone] Allergies Active Allergy Reactions Criticality Noted Date [...] ischemia Assessment & Plan (10/03/2024 9:15 AM CAN FEEDER): Bypass graft is patent. First and 2nd tips of the toes is demarcated continue Betadine paint and referred to [facility] for further management [...] 06/16/2022 Assessment & Plan (11/21/2022 9:12 PM CAN FEEDER): Patient with history of tobacco abuse who [...] management. Assessment & Plan (11/10/2023 11:08 AM CAN FEEDER): Impression: Chronic and stable. Plan: Continue losartan and amlodipine Assessment & Plan (08/14/2019 5:17 PM CDT): Per patient blood pressure remains well controlled. Continue current regimen per primary care physician Encounter for pre-operative cardiovascular clear ance 02/07/2017 Dyslipidemia 02/07/2017 Assessment & Plan (11/10/2023 11:08 AM CAN FEEDER): Impression: Chronic and stable. Plan: Continue pravastatin [...] therapy. Assessment & Plan (11/10/2023 11:06 AM CAN FEEDER): Impression: Patient is status post left TCAR. [...] statin. Assessment & Plan (11/21/2022 9:16 PM CAN FEEDER): History of bilateral carotid stenoses. She remains [...] and potential surgical treatment options. 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 Assessment & Plan (11/10/2023 11:07 AM CAN FEEDER): Impression: Patient has stable non disabling claudication [...] therapy. Assessment & Plan (11/21/2022 9:13 PM CAN FEEDER): History of bilateral lower extremity arterial occlusive [...] Description 01/22/2025 8:45 AM CDT Office Visit [facility] V[facility] Vein Surgery [address] [place] [phone] Hugo Nunez MD Gangrene (HCC) (Primary Dx) 01/22/2025 Orders Only [facility] Vascular and Vein Surgery [address] [place] [phone] Hugo Nunez MD Left toe amputee (Primary Dx) 01/15/2025 Documentation [facility] Vascular and Vein Surgery [address] [place] [phone] Karen Wang MA 01/15/2025 Telephone [facility] Vascular and Vein Surgery [address] [place] [phone] Michelle Tamez 01/09/2025 Telephone [facility] Vascular and Vein Surgery [address] [place] [phone] Hugo Nunez MD 01/04/2025 Telephone [facility] Vascular and Vein Surgery [address] [place] [phone] Elly Worthington 12/25/2024 Telephone [facility] Vascular and Vein Surgery [address] [place] [phone] Hugo Nunez MD Need verbal order for OT, PT, long-term 12/19/2024 9:02 AM CAN FEEDER Anesthesia Event [facility] OR [facility] [place] [address] Ender Sarah MD Bond, Jory Steven, MD 12/19/2024 8:55 AM CAN FEEDER - 12/19/2024 10:20 AM CAN FEEDER Surgery [facility] OR [address] [place] [address] Hugo Nunez MD LEFT FIRST AND SECOND TOE AMPUTATION 12/19/2024 6:53 AM CAN FEEDER - 12/20/2024 5:31 PM CAN FEEDER Hospital Encounter [facility] 1 Center [address] [place] [address] Hugo Nunez MD [place], MD Luna Mccormack, [...] home health skilled care 11/29/2024 8:00 AM CAN FEEDER Orders Only [facility] Medical Office Building 2 Wound Care [address] [facility] [address] [place] [address] Ulcer of left lower extremity, unspecified ulcer stage (HCC) 11/29/2024 Documentation [facility] Vascular and Vein Surgery [address] [place] [address] [address] [place] [phone] Cindy Mann MA from Last 3 Months [...] runoff ARTERIAL THROMBECTOMY 08/16/2024 Left Thromb LT HIGHWAY CONSTRUCTION INSPECTOR to TPT BPG. Thromb LT HIGHWAY CONSTRUCTION INSPECTOR & PFA. Thromb TPT & peroneal artery. Thromb LT AT. ARTERIAL THROMBECTOMY 08/14/[address] CONSTRUCTION INSPECTOR to TPT bypass. Thromb LT HIGHWAY CONSTRUCTION INSPECTOR & PFA. Thromb pop, AT & TPT. [...] uit: Not Asked; Counseling Given: Not Answered [facility] Utilities Answer Date Recorded In the past 12 months has [employer], oil, or water [employer] threatened to shut off services in your [...] often do you attend chur ch or adventism services? Never 12/20/2024 Do you belong to any clubs o r organizations such as islam groups, unions, fraternal or athletic groups, or [...] place to sleep or slept in a snf (including now)? No 03/22/2023 PHQ-9 Answer Date [...] any time in the past 12 m [facility], were you homeless or living in a snf (including now)? No 12/20/2024 Personal Safety Answer [...] Comments Blood Pressure 136/65 12/20/2024 12:45 PM CAN FEEDER Pulse 66 12/20/2024 12:45 PM CAN FEEDER Temperature 36.8 C (98.2 F) 12/20/2024 12:45 PM CAN FEEDER Respiratory Rate 18 12/20/2024 3:23 AM CAN FEEDER Oxygen Saturation 96% 12/20/2024 12:45 PM CAN FEEDER Inhaled Oxygen Concentration - - Weight 53.7 kg (118 lb 6.4 oz) 12/19/2024 7:00 A M CAN FEEDER Height 162.6 cm (5' 4 ) 12/19/2024 7:00 AM CAN FEEDER Body Mass Index 20.32 12/19/2024 7:00 AM CAN FEEDER Plan of Treatment Health Maintenance Due Date [...] history exists Medical Devices Implanted Type Area Scoop Driver Device Identifier Shelf Expiration Date Model / Serial / Lot Wl [employer] [place] 6mm 80cm 60cm Removable Ring Stretch Thin Wall Graft [id number] - [id number] - [id number] Implanted:Qty: 1 on 08/14/2024 by García Park MD at [facility] Graft Left: Leg Wl [employer] [id number] 12/31/2026 [id number] / [id number] / [employer] Flex 7mm .065in 40mm 57cm Delivery System Angle Tip [id number]-0740-[id number] - [id number] Implanted:Qty: 1 on 03/21/2023 by García Park MD at [facility] Stent Left: Carotid [employer] [id number] 09/15/2024 SR-0740-[id number] S / / [id number] Description:Carotid Artery S tent Procedures Procedure Name Priority Date/Time Associated Diagnosis Comments POCT GLUCOSE DEVICE Routine 12/20/2024 1 2:44 PM CAN FEEDER POCT GLUCOSE DEVICE Routine 12/20/2024 8 :37 AM CAN FEEDER EGFR Routine 12/20/2024 6:57 AM CAN FEEDER DIFFERENTIAL AUTO Routine 12/20/2024 6:5 7 AM CAN FEEDER CBC WITH AUTO DIFFERENTIAL Routine 12/20/2024 6:57 AM CAN FEEDER PHOSPHORUS Routine 12/20/2024 6:57 AM CAN FEEDER MAGNESIUM Routine 12/20/2024 6:57 AM CAN FEEDER COMPREHENSIVE METABOLIC PANEL Routine 12/20/2024 6:57 AM CAN FEEDER HEMOGLOBIN A1C Routine 12/20/2024 6:57 AM CAN FEEDER LIPID PANEL Routine 12/20/2024 6:57 AM CAN FEEDER POCT GLUCOSE DEVICE Routine 12/19/2024 8 :13 PM CAN FEEDER POCT GLUCOSE DEVICE Routine 12/19/2024 5 :44 PM CAN FEEDER POCT GLUCOSE DEVICE Routine 12/19/2024 1 :30 PM CAN FEEDER POCT GLUCOSE DEVICE Routine 12/19/2024 1 0:16 AM CAN FEEDER SURGICAL PATHOLOGY Routine 12/19/2024 9: 26 AM CAN FEEDER Gangrene (HCC) WY AN PROCEDURE PLACEHOLDER Routine 12/19/2024 9:10 AM CAN FEEDER W[place] AN ELECTIVE SUPRAGLOTTIC AIRWAY Routine 12/19/2024 9:10 AM CAN FEEDER AMPUTATION TOE 12/19/2024 9:02 AM CAN FEEDER PERIPHERAL VASCULAR DISEASE WITH GANGRENE POCT GLUCOSE DEVICE Routine 12/19/2024 7 :41 AM CAN FEEDER EGFR Routine 12/19/2024 7:40 AM CAN FEEDER 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 DIFFERENTIAL AUTO Routine 12/19/2024 7:4 0 AM CAN FEEDER 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 ANTIBODY SCREEN STAT 12/19/2024 7:40 AM CAN FEEDER ABO/RH STAT 12/19/2024 7:40 AM CAN FEEDER TYPE AND SCREEN STAT 12/19/2024 7:40 AM CAN FEEDER APTT Routine 12/19/2024 7:40 AM CAN FEEDER 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 Other disorder of circulatory system PROTIME-INR Routine 12/19/2024 7:40 AM CAN FEEDER 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 CBC WITH AUTO DIFFERENTIAL Routine 12/19/2024 7:40 AM CAN FEEDER 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 COMPREHENSIVE METABOLIC PANEL Routine 12/19/2024 7:40 AM CAN FEEDER 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 from Last 3 Months Results * POCT glucose (12/20/2024 12:44 PM CAN FEEDER) Glucose, POC 126 70 - 199 mg/dL Blood 12/20/2024 12:4 4 PM CAN FEEDER 12/20/2024 12:44 PM CAN FEEDER Julisa Kruse MD LAB POCT ORDERABLES - DEVICE Final Result [facility] [address] [facility] Department [place] [address] * POCT glucose (12/20/2024 8:37 AM CAN FEEDER) Glucose, POC 150 70 - 199 mg/dL Blood 12/20/2024 8:37 AM CAN FEEDER 12/20/2024 8:37 AM CAN FEEDER Julisa Kruse MD LAB POCT ORDERABLES - DEVICE Final Result Performing Organization Address [facility] Co de Phone Number [facility] [address] [place] [address] * eGFR (12/20/2024 6:57 AM CAN FEEDER) Pathologist [facility] eGFR 83 >=60 mL/min/1. 73 m2 Comment: [...] last reviewed 2021. Blood 12/20/2024 6:57 AM CAN FEEDER 12/20/2024 7:12 AM CAN FEEDER us Andrew Boyd NP LAB BLOOD ORDERABLES Final R esult Performing Organization Address City/[facility]/ZIP Co de Phone Number [facility] [address] Department [place] [address] * Differential, auto (12/20/2024 6:57 AM CAN FEEDER) Pathologist [facility] Neutrophil abs 5.6 1.5 - 6.5 K/cumm Imm gran abs 0.0 0.0 - 0.1 K/cumm [facility] Lymphocyte abs 1.9 0.8 - 3.3 K/cumm [facility] Monocyte abs 0.6 0.2 - 0.8 K/cumm [facility] Eosinophil abs 0.2 0.0 - 0.5 K/cumm [facility] Basophil abs 0.0 0.0 - 0.1 K/cumm [facility] Neutrophil pct 68.0 % [facility] Comment: Interpretive Data Percent cell count reference ranges are not reported, since discordance with absolute values may lead to misinterpretation of CBC data. Current Interpretive Data was last revised on 2018. Imm gran pct 0.2 % [facility] Comment: Interpretive Data Percent cell count reference ranges are not reported, since discordance with absolute values may lead to misinterpretation of CBC data. Current Interpretive Data was last revised on 2018. Lymphocyte pct 22.3 % [facility] Comment: Interpretive Data Percent cell count reference ranges are not reported, since discordance with absolute values may lead to misinterpretation of CBC data. Current Interpretive Data was last revised on 2018. Monocyte pct 6.8 % [facility] Comment: Interpretive Data Percent cell count reference ranges are not reported, since discordance with absolute values may lead to misinterpretation of CBC data. Current Interpretive Data was last revised on 2018. Eosinophil pct 2.3 % [facility] Comment: Interpretive Data Percent cell count reference ranges are not reported, since discordance with absolute values may lead to misinterpretation of CBC data. Current Interpretive Data was last revised on 2018. Basophil pct 0.4 % [facility] Comment: Interpretive Data Percent cell count reference ranges are not reported, since discordance with absolute values may lead to misinterpretation of CBC data. Current Interpretive Data was last revised on 2018. Blood 12/20/2024 6:57 AM CAN FEEDER 12/20/2024 7:12 AM CAN FEEDER us Andrew Boyd NP LAB BLOOD ORDERABLES Final R esult [facility] [address] [facility] Department [place] [address] * (ABNORMAL) CBC with auto differential (12/20/2024 6:57 AM CAN FEEDER) WBC 8.3 3.8 - 9.9 K/cumm Hgb 11.4(L) 11.9 - 15.5 g/dL [facility] Hct 36.9 35.6 - 45.5 % [facility] Plt 241 150 - 400 K/cumm [facility] MPV 11.1 9.1 - 12.3 fL [facility] RBC 3.90 3.90 - 5.20 M/cumm [facility] MCV 94.6 81.3 - 96.4 fL [facility] MCH 29.2 27.1 - 33.3 pg [facility] MCHC 30.9(L) 32.3 - 35.7 g/dL [facility] RDW CV 15.9(H) 11.1 - 14.9 % [facility] RDW SD 55.1(H) 35.7 - 48.1 fL [facility] NRBC abs 0.00 0.00 - 0.01 K/cumm [facility] Blood 12/20/2024 6:57 AM CAN FEEDER 12/20/2024 7:12 AM CAN FEEDER Andrew Boyd POULTRY PACKER LAB BLOOD ORDERABLES Final R esult Performing Organization Address City/[facility] Co de Phone Number [address] [place] [address] * Phosphorus (12/20/2024 6:57 AM CAN FEEDER) Pathologist [facility] Phosphorus, pl 3.4 2.3 - 4.5 mg/dL Blood 12/20/2024 6:57 AM CAN FEEDER 12/20/2024 7:12 AM CAN FEEDER Andrew Boyd POULTRY PACKER LAB BLOOD ORDERABLES Final R esult Performing Organization Address [facility] Co de Phone Number [address] [place] [address] * Magnesium (12/20/2024 6:57 AM CAN FEEDER) Pathologist [facility] Magnesium 1.9 1.4 - 2.5 mg/dL Blood 12/20/2024 6:57 AM CAN FEEDER 12/20/2024 7:12 AM CAN FEEDER Andrew Boyd POULTRY PACKER LAB BLOOD ORDERABLES Final R esult Performing Organization Address [facility] Co de Phone Number [address] [place] [address] * (ABNORMAL) Hemoglobin A1c (12/20/2024 6:57 AM CAN FEEDER) Hgb A1C 7.3(H) 4.0 - 5.6 % Estimated Average Glucose 163 mg/dL [facility] Comment: The ADA recommends reporting an estimated Average Glucose (eAG) with all Hemoglobin A1c results using the equation derived from a study of 507 normal and diabetic adults. Minority populations were underrepresented and children were not included. (Diabetes Care 31:6344-4183, 2008). The eAG is not equivalent to a fasting glucose. Blood 12/20/2024 6:57 AM CAN FEEDER 12/20/2024 7:12 AM CAN FEEDER Andrew Boyd POULTRY PACKER LAB BLOOD ORDERABLES Final R esult Performing Organization Address [facility] Co de Phone Number [address] [place] [address] * (ABNORMAL) Lipid panel (12/20/2024 6:57 AM CAN FEEDER) Cholesterol 129 30 - 199 mg/dL Comment: [...] last revised on 2018. Chol/HDL ratio 3 [facility] Blood 12/20/2024 6:57 AM CAN FEEDER 12/20/2024 7:12 AM CAN FEEDER us Andrew Boyd NP LAB BLOOD ORDERABLES Final R esult [facility] [address] [facility] Department [place] [address] * Comprehensive metabolic panel (12/20/2024 6:57 AM CAN FEEDER) Sodium 142 135 - 145 mmol/L Potassium, pl 4.3 3.3 - 4.9 mmol/L [facility] Chloride 106 97 - 110 mmol/L [facility] CO2 28 22 - 32 mmol/L [facility] Anion gap 8 2 - 15 mmol/L [facility] BUN 14 6 - 25 mg/dL [facility] Creatinine 0.78 0.60 - 1.10 mg/dL [facility] Glucose 130 70 - 199 mg/dL [facility] Comment: Interpretive Data Fasting glucose >/= [...] Calcium 8.9 8.5 - 10.3 mg/dL [facility] Bilirubin, total <0.2 0.1 - 1.2 mg/dL [facility] Protein, pl 6.6 6.5 - 8.5 g/dL [facility] Albumin 3.7 3.5 - 5.0 g/dL [facility] Alk phos 63 40 - 130 Units/L [facility] ALT 10 7 - 45 Units/L [facility] AST 20 10 - 45 Units/L [facility] Blood 12/20/2024 6:57 AM CAN FEEDER 12/20/2024 7:12 AM CAN FEEDER Andrew Boyd POULTRY PACKER LAB BLOOD ORDERABLES Final R esult Performing Organization Address City/[facility]/ZIP Co de Phone Number [address] [place] [address] * POCT glucose (12/19/2024 8:13 PM CAN FEEDER) Glucose, POC 138 70 - 199 mg/dL Blood 12/19/2024 8:13 PM CAN FEEDER 12/19/2024 8:13 PM CAN FEEDER Julisa Kruse MD LAB POCT ORDERABLES - DEVICE Final Result Performing Organization Address City/[facility] Co de Phone Number [address] [place] [address] * POCT glucose (12/19/2024 5:44 PM CAN FEEDER) Glucose, POC 155 70 - 199 mg/dL Blood 12/19/2024 5:44 PM CAN FEEDER 12/19/2024 5:44 PM CAN FEEDER Julisa Kruse MD LAB POCT ORDERABLES - DEVICE Final Result Performing Organization Address [facility] Co de Phone Number [address] [place] [address] * POCT glucose (12/19/2024 1:30 PM CAN FEEDER) Glucose, POC 137 70 - 199 mg/dL Blood 12/19/2024 1:30 PM CAN FEEDER 12/19/2024 1:30 PM CAN FEEDER us Julisa Kruse MD LAB POCT ORDERABLES - DEVICE Final Result Performing Organization Address [facility] de Phone Number [address] [address] * POCT glucose (12/19/2024 10:16 AM CAN FEEDER) Glucose, POC 157 70 - 199 mg/dL Blood 12/19/2024 10:1 6 AM CAN FEEDER 12/19/2024 10:16 AM CAN FEEDER us Hugo Nunez MD LAB POCT ORDERABLES - DEVIC E Final Result Performing Organization Address [facility] Phone Number [address] Department [place] [address] * Surgical pathology (12/19/2024 9:26 AM CAN FEEDER) Tissue specimen (specimen) (Amputation non-tramatic) 12/19/2024 9:26 AM CAN FEEDER Narrative PATHOLOGY [facility] - 12/24/2024 7:35 PM CDT [facility] Department of Pathology [address] [place] [id number] Note to Patients: This report may contain [...] : 1955 (Age: 69) Gender: F Address: [address] [place] [address] [facility] #: [id number] Service: Vascular Location: Patient Type: [facility] OP [...] for gross examination only. JAQUELIN Schafer, [facility] Microscopic slide review and interpretation for this case was performed at [facility], Department of Surgical Pathology, [address] [facility] [place], [place] [id number], [place] [address] CLIA # [id number] us Hugo Nunez MD LAB PATHOLOGY ORDERABLES Fi nal Result Performing Organization Address City/[facility]/ZIP Co de Phone Number PATHOLOGY [facility] * WY AN ELECTIVE SUPRAGLOTTIC AIRWAY, [place] AN PROCEDURE PLACEHOLDER (12/19/2024 9:10 AM CAN FEEDER) Narrative Dionicio Barnard CRNA - 12/19/2024 9:10 AM CAN FEEDER Dionicio Barnard CRNA 12/19/2024 9:10 AM Airway Patient location: OR Urgency: elective Indications for airway management: anesthesia Difficult airway: no Staff: Placed by: DISASTER RECOVERY MANAGER: Dionicio Barnard CRNA Emergent airway documentation: Risks [...] Result * POCT glucose (12/19/2024 7:41 AM CAN FEEDER) Glucose, POC 155 70 - 199 mg/dL Blood 12/19/2024 7:41 AM CAN FEEDER 12/19/2024 7:41 AM CAN FEEDER Hugo Nunez MD LAB POCT ORDERABLES - DEVIC E Final Result Performing Organization Address [facility] Co de Phone Number [address] Department [place] [address] * eGFR (12/19/2024 7:40 AM CAN FEEDER) eGFR 80 >=60 mL/min/1. 73 m2 Comment: [...] last reviewed 2021. Blood 12/19/2024 7:40 AM CAN FEEDER 12/19/2024 7:48 AM CAN FEEDER us Hugo Nunez MD LAB BLOOD ORDERABLES Final Result [place] [address] [facility] Department [place] [address] * Differential, auto (12/19/2024 7:40 AM CAN FEEDER) Pathologist [facility] Neutrophil abs 6.2 1.5 - 6.5 K/cumm Imm gran abs 0.0 0.0 - 0.1 K/cumm [facility] Lymphocyte abs 1.8 0.8 - 3.3 K/cumm [facility] Monocyte abs 0.7 0.2 - 0.8 K/cumm [facility] Eosinophil abs 0.1 0.0 - 0.5 K/cumm [facility] Basophil abs 0.0 0.0 - 0.1 K/cumm [facility] Neutrophil pct 69.7 % [facility] Comment: Interpretive Data Percent cell count reference ranges are not reported, since discordance with absolute values may lead to misinterpretation of CBC data. Current Interpretive Data was last revised on 2018. Imm gran pct 0.2 % [facility] Comment: Interpretive Data Percent cell count reference ranges are not reported, since discordance with absolute values may lead to misinterpretation of CBC data. Current Interpretive Data was last revised on 2018. Lymphocyte pct 20.5 % [facility] Comment: Interpretive Data Percent cell count reference ranges are not reported, since discordance with absolute values may lead to misinterpretation of CBC data. Current Interpretive Data was last revised on 2018. Monocyte pct 7.8 % [facility] Comment: Interpretive Data Percent cell count reference ranges are not reported, since discordance with absolute values may lead to misinterpretation of CBC data. Current Interpretive Data was last revised on 2018. Eosinophil pct 1.5 % [facility] Comment: Interpretive Data Percent cell count reference ranges are not reported, since discordance with absolute values may lead to misinterpretation of CBC data. Current Interpretive Data was last revised on 2018. Basophil pct 0.3 % [facility] Comment: Interpretive Data Percent cell count reference ranges are not reported, since discordance with absolute values may lead to misinterpretation of CBC data. Current Interpretive Data was last revised on 2018. Blood 12/19/2024 7:40 AM CAN FEEDER 12/19/2024 7:48 AM CAN FEEDER Hugo Nunez MD LAB BLOOD ORDERABLES Final Result [facility] [address] [facility] Department [place] [address] * (ABNORMAL) CBC with auto differential (12/19/2024 7:40 AM CAN FEEDER) WBC 8.9 3.8 - 9.9 K/cumm Hgb 13.0 11.9 - 15.5 g/dL [facility] Hct 40.5 35.6 - 45.5 % [facility] Plt 281 150 - 400 K/cumm [facility] MPV 11.1 9.1 - 12.3 fL [facility] RBC 4.40 3.90 - 5.20 M/cumm [facility] MCV 92.0 81.3 - 96.4 fL [facility] MCH 29.5 27.1 - 33.3 pg [facility] MCHC 32.1(L) 32.3 - 35.7 g/dL [facility] RDW CV 15.9(H) 11.1 - 14.9 % [facility] RDW SD 53.9(H) 35.7 - 48.1 fL [facility] NRBC abs 0.00 0.00 - 0.01 K/cumm [facility] Blood 12/19/2024 7:40 AM CAN FEEDER 12/19/2024 7:48 AM CAN FEEDER Hugo Nunez MD LAB BLOOD ORDERABLES Final Result Performing Organization Address [facility] de Phone Number [address] [address] * ABO/Rh (12/19/2024 7:40 AM CAN FEEDER) ABO/Rh O Positive Blood 12/19/2024 7:40 AM CAN FEEDER 12/19/2024 7:46 AM CAN FEEDER Hugo Nunez MD LAB BLOOD BANK TEST ORDERAB LES Final Result Performing Organization Address [facility] Phone Number [address] [address] * aPTT (12/19/2024 7:40 AM CAN FEEDER) Pathologist [facility] aPTT 23 22 - 37 sec Comment: Interpretive data aPTT test has not been evaluated for monitoring heparin therapy. The anti-Xa is the preferred test. Current interpretive data was last revised on 2019. Blood 12/19/2024 7:40 AM CAN FEEDER 12/19/2024 7:48 AM CAN FEEDER Hugo Nunez MD LAB BLOOD ORDERABLES Final Result Performing Organization Address [facility] de Phone Number [address] [address] * Protime-INR (12/19/2024 7:40 AM CAN FEEDER) PT 12.9 12.0 - 14.6 sec INR 1.0 0.9 - 1.2 [facility] Comment: Ref Range High Interpretive data Oral anticoagulant therapeutic ranges: Venous thromboembolism prophylaxis or treatment: 2.0-3.0 CARDIOLOGY Standard range: 2.0-3.0 High-intensity range: 2.5-3.5 Refer to indication-specific guidelines for appropriate target ranges for prosthetic heart valve replacement. Current interpretive data was last revised on 2019. Blood 12/19/2024 7:40 AM CAN FEEDER 12/19/2024 7:48 AM CAN FEEDER Hugo Nunez MD LAB BLOOD ORDERABLES Final Result Performing Organization Address [facility] Co de Phone Number [address] [address] * Antibody screen (12/19/2024 7:40 AM CAN FEEDER) Ruddy, indirect, Gel Interpretation Negative ABSC Blood 12/19/2024 7:40 AM CAN FEEDER 12/19/2024 7:46 AM CAN FEEDER Hugo Nunez MD LAB BLOOD BANK TEST ORDERAB LES Final Result Performing Organization Address [facility] Phone Number [address] [address] * Comprehensive metabolic panel (12/19/2024 7:40 AM CAN FEEDER) Pathologist [facility] Sodium 140 135 - 145 mmol/L Potassium, pl 3.9 3.3 - 4.9 mmol/L [facility] Comment:Hemolyzed; Potassium value may be falsely elevated by as much as 1.0 mmol/L. Suggest redraw and reanalysis. Chloride 103 97 - 110 mmol/L [facility] CO2 23 22 - 32 mmol/L [facility] Anion gap 14 2 - 15 mmol/L [facility] BUN 20 6 - 25 mg/dL [facility] Creatinine 0.81 0.60 - 1.10 mg/dL [facility] Glucose 153 70 - 199 mg/dL [facility] Comment: Interpretive Data Fasting glucose >/= [...] Calcium 9.9 8.5 - 10.3 mg/dL [facility] Bilirubin, total 0.2 0.1 - 1.2 mg/dL [facility] Protein, pl 7.5 6.5 - 8.5 g/dL [facility] Albumin 4.2 3.5 - 5.0 g/dL [facility] Alk phos 76 40 - 130 Units/L [facility] ALT 14 7 - 45 Units/L [facility] AST See Comment 10 [facility] Comment:Credited; Hemolyzed Specimen Blood 12/19/2024 7:40 AM CAN FEEDER 12/19/2024 7:48 AM CAN FEEDER Hugo Nunez MD LAB BLOOD ORDERABLES Final Result Performing Organization Address City/State/ZIP Co nv Phone Number [facility] [address] [facility] Department [place] [address] from Last 3 Months Insurance IDPA [employer]ETNA MEDICARE GOLD AETNA MEDICARE GOLD AETNA MEDICARE GOLD Advance Directives For more information, please contact: [phone] * Full Code (Latest Code Status on [...] 3:08 AM 08/14/2024 4:56 PM Care Teams Import Export Coordinator Relationship Specialty Start Date End Date Asif Donald MD [address] [address] PCP - General Emergency Medicine 08/22/24 García Park MD [address] [facility] [address] [address] [address] Surgeon Vascular Surgery 10/29/22 Terrance Pollard MD [address] [facility] [address] [place] [address] [address] Consulting Physician Cardiovascular Disease 03/16/23 Talat Walsh MD [address] [place] [address] Referring Physician Internal Medicine 03/16/23 Antonio Donaldson MD [address] [id number] Referring Physician Nephrology 12/13/24 Hugo Nunez MD [address] [facility] [address] [address] [address] Consulting Physician Vascular Surgery 12/19/24
--- OUTSIDE RECORDS SUMMARY | 2025-02-11 19:25 | XMS_ITS | Encounter Summary ---
Author Organization [facility] Facility Care Team Providers Care Stock Checkerer Name Role Phone Basil Lua MD Primary Care Provider [phone] Asif Donald MD Primary Care Provider [phone] García Park MD Unavailable [phone] Terrance Pollard MD Unavailable Talat Walsh MD Unavailable [phone] Asif Donald MD Primary Care Provider [phone] Antonio Donaldson MD Unavailable [phone] Hugo Nunez MD Unavailable [phone] Encounter Details Date Type Department Care Team (Latest Contact Info) Description 01/30/2018 Orders Only [facility] CLINCONV Provider, MD [place] [address] [place] [address] Social History Tobacco Use Types Packs/Day [...] on filedocumented in this encounter Care Teams Stock Checkerer Relationship Specialty Start Date End Date Basil Lua MD [address] [place] [address] PCP - General 01/03/19 03/22/19 Asif Donald MD [address] [place] [address] PCP - General 03/23/19 08/21/24 Asif Donald MD [address] [place] [address] PCP - General Emergency Medicine 08/22/24 García Park MD [facility] [address] [address] [address] Surgeon Vascular Surgery 10/29/22 Terrance Pollard MD [facility] [address] [address] [address] Consulting Physician Cardiovascular Disease 03/16/23 Talat Walsh MD [address] [place] [address] Referring Physician Internal Medicine 03/16/23 Antonio Donaldson MD [address] [address] Referring Physician Nephrology 12/13/24 Hugo Nunez MD [address] [facility] [address] [place] [address] Consulting Physician Vascular Surgery 12/19/24 documented as of this encounter
--- OUTSIDE RECORDS SUMMARY | 2025-02-11 19:25 | XMS_ITS | Encounter Summary ---
Author Organization [facility] Facility Care Team Providers Care Reference Library Assistant Name Role Phone Basil Lua MD Primary Care Provider [phone] Asif Donald MD Primary Care Provider [phone] García Pakr MD Unavailable [phone] Terrance Pollard MD Unavailable Talat Walsh MD Unavailable [phone] Asif Donald MD Primary Care Provider [phone] Antonio Donaldson MD Unavailable [phone] Hugo Nunez MD Unavailable [phone] Encounter Details Date Type Department Care Team (Latest Contact Info) Description 02/14/2017 Orders Only [facility] CLINCONV Provider, MD Shantell [address] [place] [address] Social History Tobacco Use Types Packs/Day [...] on filedocumented in this encounter Care Teams Reference Library Assistant Relationship Specialty Start Date End Date Basil Lua MD [address] [place] [address] PCP - General 01/03/19 03/22/19 Asif Donald MD [address] [place] [address] PCP - General 03/23/19 08/21/24 Asif Donald MD [address] [place] [address] PCP - General Emergency Medicine 08/22/24 García Park MD [facility]0 [facility] [address] [address] Surgeon Vascular Surgery 10/29/[address] [facility] [address] [address] Consulting Physician Cardiovascular Disease 03/16/23 Talat Walsh MD [address] [place] [address] Referring Physician Internal Medicine 03/16/23 Antonio Donaldson MD [address] [address] Referring Physician Nephrology 12/13/24 Hugo Nunez MD [address] [facility] [address] [place] [address] Consulting Physician Vascular Surgery 12/19/24 documented as of this encounter
--- OUTSIDE RECORDS SUMMARY | 2025-02-11 19:25 | XMS_ITS | Referral Summary ---
Author Organization [facility] Address [address] [place] [address] Care Team Providers Care Shellac Polisher Name Role Phone García Park MD Unavailable [phone] Terrance Pollard MD Unavailable Talat Walsh MD Unavailable [phone] Asif Donald MD Primary Care Provider [phone] Antonio Donaldson MD Unavailable [phone] Hugo Nunez MD Unavailable [phone] Encounters Date Type Department Care Team Description 01/22/2025 Orders Only [facility] Vascular and Vein Surgery [address] [place] [phone] Hugo Nunez MD Left toe amputee (Primary Dx) 01/22/2025 8:45 AM CDT Office Visit [facility] Vascular and Vein Surgery [address] [place] [phone] Hugo Nunez MD Gangrene (HCC) (Primary Dx) 01/15/2025 Documentation [facility] Medical [facility] Vascular and Vein Surgery [address] [place] [phone] Karen Wang MA 01/15/2025 Telephone [facility] Vascular and Vein Surgery [address] [place] [phone] Michelle Tamez 01/09/2025 Telephone [facility] Medical [facility] Vascular and Vein Surgery [address] [phone] Hugo Nunez MD 01/04/2025 Telephone [facility] Vascular and Vein Surgery [address] [place] [phone] Elly Worthington 12/25/2024 Telephone [facility] Vascular and Vein Surgery [address] [place] [phone] Hugo Nunez MD Need verbal order for OT, PT, long term 12/19/2024 6:53 AM LEAD ASSEMBLER - 12/20/2024 5:31 PM [facility] Hospital Encounter [facility] [address] [address] Hugo Nunez MD Yaganti, Srinivasarao C., MD [...] type 2 diabetes mellitus ([facility]); Mixed hyperlipidemia; Chronic obstructive pulmonary disease, unspecified COPD type ([facility]); Normocytic hypochromic anemia; Anxiety and depression Discharge Disposition: Discharge to home, home health skilled care 12/19/2024 8:55 AM LEAD ASSEMBLER - 12/19/2024 10:20 AM LEAD ASSEMBLER Surgery [facility] OR [address] [place] [phone] Hugo Nunez MD LEFT FIRST AND SECOND TOE AMPUTATION 12/19/2024 9:02 AM LEAD ASSEMBLER Anesthesia Event [facility] OR [address] [place] [phone] Ender Sarah MD Bond, Jory Steven, MD 11/29/2024 Documentation [facility] Medical [facility] Vascular and Vein Surgery [address] [place] [phone] Cindy Mann MA 11/29/2024 8:00 AM LEAD ASSEMBLER Orders Only [facility] Medical Office Building 2 Wound Care [address] [facility] [address] [place] [address] Ulcer of left lower extremity, unspecified ulcer [...] ischemia Assessment & Plan (10/03/2024 9:15 AM LEAD ASSEMBLER): Bypass graft is patent. First and 2nd tips of the toes is demarcated continue Betadine paint and referred to [facility] for further management [...] 06/16/2022 Assessment & Plan (11/21/2022 9:12 PM LEAD ASSEMBLER): Patient with history of tobacco abuse who [...] management. Assessment & Plan (11/10/2023 11:08 AM LEAD ASSEMBLER): Impression: Chronic and stable. Plan: Continue losartan and amlodipine Assessment & Plan (08/14/2019 5:17 PM CDT): Per patient blood pressure remains well controlled. Continue current regimen per primary care physician Encounter for pre-operative cardiovascular clear ance 02/07/2017 Dyslipidemia 02/07/2017 Assessment & Plan (11/10/2023 11:08 AM LEAD ASSEMBLER): Impression: Chronic and stable. Plan: Continue pravastatin [...] therapy. Assessment & Plan (11/10/2023 11:06 AM LEAD ASSEMBLER): Impression: Patient is status post left TCAR. [...] statin. Assessment & Plan (11/21/2022 9:16 PM LEAD ASSEMBLER): History of bilateral carotid stenoses. She remains [...] and potential surgical treatment options. 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 Assessment & Plan (11/10/2023 11:07 AM LEAD ASSEMBLER): Impression: Patient has stable non disabling claudication [...] therapy. Assessment & Plan (11/21/2022 9:13 PM LEAD ASSEMBLER): History of bilateral lower extremity arterial occlusive [...] uit: Not Asked; Counseling Given: Not Answered [facility] Utilities Answer Date Recorded In the [...] often do you attend chur ch or gnosticist services? Never 12/20/2024 Do you belong to any clubs o r organizations such as oriental orthodox groups, unions, fraternal or athletic groups, or [...] place to sleep or slept in a fdc (including now)? No 03/22/2023 PHQ-9 Answer Date [...] any time in the past 12 [facility], were you homeless or living in a fdc (including now)? No 12/20/2024 Personal Safety Answer [...] Comments Blood Pressure 136/65 12/20/2024 12:45 PM LEAD ASSEMBLER Pulse 66 12/20/2024 12:45 PM LEAD ASSEMBLER Temperature 36.8 C (98.2 F) 12/20/2024 12:45 PM LEAD ASSEMBLER Respiratory Rate 18 12/20/2024 3:23 AM LEAD ASSEMBLER Oxygen Saturation 96% 12/20/2024 12:45 PM LEAD ASSEMBLER Inhaled Oxygen Concentration - - Weight 53.7 kg (118 lb 6.4 oz) 12/19/2024 7:00 A M LEAD ASSEMBLER Height 162.6 cm (5' 4 ) 12/19/2024 7:00 AM LEAD ASSEMBLER Body Mass Index 20.32 12/19/2024 7:00 AM LEAD ASSEMBLER Plan of Treatment Not on file Medical Devices Implanted Type Area Aircraft Navigator Device Identifier Shelf Expiration Date Model / Serial / Lot [employer] Ringle 6mm 80cm 60cm Removable Ring Stretch Thin Wall Graft [id number] - [id number] - [id number] Implanted:Qty: 1 on 08/14/2024 by García Park MD at [facility] Graft Left: Leg [employer] [id number] 12/31/2026 [id number] / [id number] / [employer] Flex 7mm .065in 40mm 57cm Delivery System Angle Tip [id number] - [id number] Implanted:Qty: 1 on 03/21/2023 by García Park MD at [facility] Stent Left: Carotid [employer] [id number] 09/15/2024 [id number]-0740-[id number] S / / [id number] Description:Carotid Artery S tent Procedures Procedure Name Priority Date/Time Associated Diagnosis Comments POCT GLUCOSE DEVICE Routine 12/20/2024 1 2:44 PM LEAD ASSEMBLER POCT GLUCOSE DEVICE Routine 12/20/2024 8 :37 AM LEAD ASSEMBLER EGFR Routine 12/20/2024 6:57 AM LEAD ASSEMBLER DIFFERENTIAL AUTO Routine 12/20/2024 6:5 7 AM LEAD ASSEMBLER CBC WITH AUTO DIFFERENTIAL Routine 12/20/2024 6:57 AM LEAD ASSEMBLER PHOSPHORUS Routine 12/20/2024 6:57 AM LEAD ASSEMBLER MAGNESIUM Routine 12/20/2024 6:57 AM LEAD ASSEMBLER COMPREHENSIVE METABOLIC PANEL Routine 12/20/2024 6:57 AM LEAD ASSEMBLER HEMOGLOBIN A1C Routine 12/20/2024 6:57 AM LEAD ASSEMBLER LIPID PANEL Routine 12/20/2024 6:57 AM LEAD ASSEMBLER POCT GLUCOSE DEVICE Routine 12/19/2024 8 :13 PM LEAD ASSEMBLER POCT GLUCOSE DEVICE Routine 12/19/2024 5 :44 PM LEAD ASSEMBLER POCT GLUCOSE DEVICE Routine 12/19/2024 1 :30 PM LEAD ASSEMBLER POCT GLUCOSE DEVICE Routine 12/19/2024 1 0:16 AM LEAD ASSEMBLER SURGICAL PATHOLOGY Routine 12/19/2024 9: 26 AM LEAD ASSEMBLER Gangrene (HCC) CO AN PROCEDURE PLACEHOLDER Routine 12/19/2024 9:10 AM LEAD ASSEMBLER CO AN ELECTIVE SUPRAGLOTTIC AIRWAY Routine 12/19/2024 9:10 AM LEAD ASSEMBLER AMPUTATION TOE 12/19/2024 9:02 AM LEAD ASSEMBLER PERIPHERAL VASCULAR DISEASE WITH GANGRENE POCT GLUCOSE DEVICE Routine 12/19/2024 7 :41 AM LEAD ASSEMBLER EGFR Routine 12/19/2024 7:40 AM LEAD ASSEMBLER 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 DIFFERENTIAL AUTO Routine 12/19/2024 7:4 0 AM LEAD ASSEMBLER 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 ANTIBODY SCREEN STAT 12/19/2024 7:40 AM LEAD ASSEMBLER ABO/RH STAT 12/19/2024 7:40 AM LEAD ASSEMBLER TYPE AND SCREEN STAT 12/19/2024 7:40 AM LEAD ASSEMBLER APTT Routine 12/19/2024 7:40 AM LEAD ASSEMBLER 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 Other disorder of circulatory system PROTIME-INR Routine 12/19/2024 7:40 AM LEAD ASSEMBLER 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 CBC WITH AUTO DIFFERENTIAL Routine 12/19/2024 7:40 AM LEAD ASSEMBLER 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 COMPREHENSIVE METABOLIC PANEL Routine 12/19/2024 7:40 AM LEAD ASSEMBLER 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 from Last 3 Months Results * POCT glucose (12/20/2024 12:44 PM LEAD ASSEMBLER) Glucose, POC 126 70 - 199 mg/dL Blood 12/20/2024 12:4 4 PM LEAD ASSEMBLER 12/20/2024 12:44 PM LEAD ASSEMBLER Julisa Kruse MD LAB POCT ORDERABLES - DEVICE Final Result Performing Organization Address [facility] Co de Phone Number [address] [place] [address] * POCT glucose (12/20/2024 8:37 AM LEAD ASSEMBLER) Glucose, POC 150 70 - 199 mg/dL Blood 12/20/2024 8:37 AM LEAD ASSEMBLER 12/20/2024 8:37 AM LEAD ASSEMBLER Julisa Kruse MD LAB POCT ORDERABLES - DEVICE Final Result Performing Organization Address City/[facility] Co de Phone Number [address] [place] [address] * eGFR (12/20/2024 6:57 AM LEAD ASSEMBLER) eGFR 83 >=60 mL/min/1. 73 m2 Comment: [...] last reviewed 2021. Blood 12/20/2024 6:57 AM LEAD ASSEMBLER 12/20/2024 7:12 AM LEAD ASSEMBLER us Andrew Boyd NP LAB BLOOD ORDERABLES Final R esult [facility] [address] [facility] Department [place] [address] * Differential, auto (12/20/2024 6:57 AM LEAD ASSEMBLER) Neutrophil abs 5.6 1.5 - 6.5 K/cumm Imm gran abs 0.0 0.0 - 0.1 K/cumm [facility] Lymphocyte abs 1.9 0.8 - 3.3 K/cumm [facility] Monocyte abs 0.6 0.2 - 0.8 K/cumm [facility] Eosinophil abs 0.2 0.0 - 0.5 K/cumm [facility] Basophil abs 0.0 0.0 - 0.1 K/cumm [facility] Neutrophil pct 68.0 % [facility] Comment: Interpretive Data Percent cell count reference ranges are not reported, since discordance with absolute values may lead to misinterpretation of CBC data. Current Interpretive Data was last revised on 2018. Imm gran pct 0.2 % [facility] Comment: Interpretive Data Percent cell count reference ranges are not reported, since discordance with absolute values may lead to misinterpretation of CBC data. Current Interpretive Data was last revised on 2018. Lymphocyte pct 22.3 % [facility] Comment: Interpretive Data Percent cell count reference ranges are not reported, since discordance with absolute values may lead to misinterpretation of CBC data. Current Interpretive Data was last revised on 2018. Monocyte pct 6.8 % [facility] Comment: Interpretive Data Percent cell count reference ranges are not reported, since discordance with absolute values may lead to misinterpretation of CBC data. Current Interpretive Data was last revised on 2018. Eosinophil pct 2.3 % [facility] Comment: Interpretive Data Percent cell count reference ranges are not reported, since discordance with absolute values may lead to misinterpretation of CBC data. Current Interpretive Data was last revised on 2018. Basophil pct 0.4 % [facility] Comment: Interpretive Data Percent cell count reference ranges are not reported, since discordance with absolute values may lead to misinterpretation of CBC data. Current Interpretive Data was last revised on 2018. Blood 12/20/2024 6:57 AM LEAD ASSEMBLER 12/20/2024 7:12 AM LEAD ASSEMBLER us Andrew Boyd EMPLOYEE COMMUNICATIONS COORDINATOR LAB BLOOD ORDERABLES Final R esult [place] [id number] [facility] Department [place] [address] * (ABNORMAL) CBC with auto differential (12/20/2024 6:57 AM LEAD ASSEMBLER) WBC 8.3 3.8 - 9.9 K/cumm Hgb 11.4(L) 11.9 - 15.5 g/dL [facility] Hct 36.9 35.6 - 45.5 % [facility] Plt 241 150 - 400 K/cumm [facility] MPV 11.1 9.1 - 12.3 fL [facility] RBC 3.90 3.90 - 5.20 M/cumm [facility] MCV 94.6 81.3 - 96.4 fL [facility] MCH 29.2 27.1 - 33.3 pg [facility] MCHC 30.9(L) 32.3 - 35.7 g/dL [facility] RDW CV 15.9(H) 11.1 - 14.9 % [facility] RDW SD 55.1(H) 35.7 - 48.1 fL [facility] NRBC abs 0.00 0.00 - 0.01 K/cumm [facility] Blood 12/20/2024 6:57 AM LEAD ASSEMBLER 12/20/2024 7:12 AM LEAD ASSEMBLER Andrew Boyd EMPLOYEE COMMUNICATIONS COORDINATOR LAB BLOOD ORDERABLES Final R [facility] Performing Organization Address [facility] Co de Phone Number [address] [place] [address] [address] * Phosphorus (12/20/2024 6:57 AM LEAD ASSEMBLER) Phosphorus, pl 3.4 2.3 - 4.5 mg/dL Blood 12/20/2024 6:57 AM LEAD ASSEMBLER 12/20/2024 7:12 AM LEAD ASSEMBLER Andrew Boyd EMPLOYEE COMMUNICATIONS COORDINATOR LAB BLOOD ORDERABLES Final [facility] Performing Organization Address [facility] de Phone Number [address] [address] * Magnesium (12/20/2024 6:57 AM LEAD ASSEMBLER) Magnesium 1.9 1.4 - 2.5 mg/dL Blood 12/20/2024 6:57 AM LEAD ASSEMBLER 12/20/2024 7:12 AM LEAD ASSEMBLER Result [facility] Andrew Boyd EMPLOYEE COMMUNICATIONS COORDINATOR LAB BLOOD ORDERABLES Final [facility] Performing Organization Address [facility] de Phone Number [address] [address] * (ABNORMAL) Hemoglobin A1c (12/20/2024 6:57 AM LEAD ASSEMBLER) Hgb A1C 7.3(H) 4.0 - 5.6 % Estimated Average Glucose 163 mg/dL [facility] Comment: The ADA recommends reporting an estimated Average Glucose (eAG) with all Hemoglobin A1c results using the equation derived from a study of 507 normal and diabetic adults. Minority populations were underrepresented and children were not included. (Diabetes Care 31:4376-8435, 2008). The eAG is not equivalent to a fasting glucose. Blood 12/20/2024 6:57 AM LEAD ASSEMBLER 12/20/2024 7:12 AM LEAD ASSEMBLER us Andrew Boyd NP LAB BLOOD ORDERABLES Final R esult [facility] [address] [facility] Department [place] [address] * (ABNORMAL) Lipid panel (12/20/2024 6:57 AM LEAD ASSEMBLER) Cholesterol 129 30 - 199 mg/dL Comment: [...] ratio 3 [facility] Blood 12/20/2024 6:57 AM LEAD ASSEMBLER 12/20/2024 7:12 AM LEAD ASSEMBLER us Takeysha L. Lowe EMPLOYEE COMMUNICATIONS COORDINATOR LAB BLOOD ORDERABLES Final R esult Performing Organization Address City/[facility]/ZIP Co de Phone Number [facility] [address] [facility] [place] [address] * Comprehensive metabolic panel (12/20/2024 6:57 AM LEAD ASSEMBLER) Sodium 142 135 - 145 mmol/L Potassium, pl 4.3 3.3 - 4.9 mmol/L [facility] Chloride 106 97 - 110 mmol/L [facility] CO2 28 22 - 32 mmol/L [facility] Anion gap 8 2 - 15 mmol/L [facility] BUN 14 6 - 25 mg/dL [facility] Creatinine 0.78 0.60 - 1.10 mg/dL [facility] Glucose 130 70 - 199 mg/dL [facility] Comment: Interpretive Data Fasting glucose >/= 126 [...] 2022. Calcium 8.9 8.5 - 10.3 mg/dL [facility] Bilirubin, total <0.2 0.1 - 1.2 mg/dL [facility] Protein, pl 6.6 6.5 - 8.5 g/dL [facility] Albumin 3.7 3.5 - 5.0 g/dL [facility] Alk phos 63 40 - 130 Units/L [facility] ALT 10 7 - 45 Units/L [facility] AST 20 10 - 45 Units/L [facility] Blood 12/20/2024 6:57 AM LEAD ASSEMBLER 12/20/2024 7:12 AM LEAD ASSEMBLER Andrew Boyd EMPLOYEE COMMUNICATIONS COORDINATOR LAB BLOOD ORDERABLES Final R esult Performing Organization Address City/[facility]/ZIP Co de Phone Number [facility] [address] [facility] [place] [place] [address] * POCT glucose (12/19/2024 8:13 PM LEAD ASSEMBLER) Glucose, POC 138 70 - 199 mg/dL Blood 12/19/2024 8:13 PM LEAD ASSEMBLER 12/19/2024 8:13 PM LEAD ASSEMBLER Julisa Kruse MD LAB POCT ORDERABLES - DEVICE Final Result Performing Organization Address City/[facility]/ZIP Co de Phone Number [address] [place] [address] * POCT glucose (12/19/2024 5:44 PM LEAD ASSEMBLER) Glucose, POC 155 70 - 199 mg/dL Blood 12/19/2024 5:44 PM LEAD ASSEMBLER 12/19/2024 5:44 PM LEAD ASSEMBLER Julisa Kruse MD LAB POCT ORDERABLES - DEVICE Final Result Performing Organization Address [facility]/ZIP Co de Phone Number [address] [address] * POCT glucose (12/19/2024 1:30 PM LEAD ASSEMBLER) Glucose, POC 137 70 - 199 mg/dL Blood 12/19/2024 1:30 PM LEAD ASSEMBLER 12/19/2024 1:30 PM LEAD ASSEMBLER Julisa Kruse MD LAB POCT ORDERABLES - DEVICE Final Result Performing Organization Address City/[facility] Co de Phone Number [address] [place] [address] * POCT glucose (12/19/2024 10:16 AM LEAD ASSEMBLER) Glucose, POC 157 70 - 199 mg/dL Blood 12/19/2024 10:1 6 AM LEAD ASSEMBLER 12/19/2024 10:16 AM LEAD ASSEMBLER Hugo Nunez MD LAB POCT ORDERABLES - DEVIC E Final Result [facility] [address] Department [place] [address] * Surgical pathology (12/19/2024 9:26 AM LEAD ASSEMBLER) Tissue specimen (specimen) (Amputation non-tramatic) 12/19/2024 9:26 AM LEAD ASSEMBLER Narrative PATHOLOGY [facility] - 12/24/2024 7:35 PM CDT [facility] Department of Pathology [address] [place] [id number] Note to Patients: This report may contain [...] : 1955 (Age: 69) Gender: F Address: [address] [place] [address] Hospital #: [id number] Service: Vascular Location: Patient Type: [facility] IN BED Taken: 12/19/2024 Received: 12/19/2024 [...] for gross examination only. JAQUELIN Schafer, PA ([facility]) Microscopic slide review and interpretation for this case was performed at [facility], Department of Surgical Pathology, [address] [facility], [place] [id number] [id number] [facility] # [id number] Hugo Nunez MD LAB PATHOLOGY ORDERABLES Fi nal Result PATHOLOGY [facility] * CO AN ELECTIVE SUPRAGLOTTIC AIRWAY, CO AN PROCEDURE PLACEHOLDER (12/19/2024 9:10 AM LEAD ASSEMBLER) Narrative Dionicio Barnard CRNA - 12/19/2024 9:10 AM LEAD ASSEMBLER Dionicio Barnard CRNA 12/19/2024 9:10 AM Airway Patient location: OR Urgency: elective Indications for airway management: anesthesia Difficult airway: no Staff: Placed by: [facility]: Dionicio Barnard CRNA Emergent airway documentation: Risks [...] Result * POCT glucose (12/19/2024 7:41 AM LEAD ASSEMBLER) Glucose, POC 155 70 - 199 mg/dL Blood 12/19/2024 7:41 AM LEAD ASSEMBLER 12/19/2024 7:41 AM LEAD ASSEMBLER Hugo Nunez MD LAB POCT ORDERABLES - DEVIC E Final Result Performing Organization Address [facility] de Phone Number [facility] [address] Department [place] [address] * eGFR (12/19/2024 7:40 AM LEAD ASSEMBLER) eGFR 80 >=60 mL/min/1. 73 m2 Comment: [...] last reviewed 2021. Blood 12/19/2024 7:40 AM LEAD ASSEMBLER 12/19/2024 7:48 AM LEAD ASSEMBLER Hugo Nunez MD LAB BLOOD ORDERABLES Final Result Performing Organization Address City/[facility] Co de Phone Number [facility] [facility] Department [place] [address] * Differential, auto (12/19/2024 7:40 AM LEAD ASSEMBLER) Neutrophil abs 6.2 1.5 - 6.5 K/cumm Imm gran abs 0.0 0.0 - 0.1 K/cumm [facility] Lymphocyte abs 1.8 0.8 - 3.3 K/cumm [facility] Monocyte abs 0.7 0.2 - 0.8 K/cumm [facility] Eosinophil abs 0.1 0.0 - 0.5 K/cumm [facility] Basophil abs 0.0 0.0 - 0.1 K/cumm [facility] Neutrophil pct 69.7 % [facility] Comment: Interpretive Data Percent cell count reference ranges are not reported, since discordance with absolute values may lead to misinterpretation of CBC data. Current Interpretive Data was last revised on 2018. Imm gran pct 0.2 % [facility] Comment: Interpretive Data Percent cell count reference ranges are not reported, since discordance with absolute values may lead to misinterpretation of CBC data. Current Interpretive Data was last revised on 2018. Lymphocyte pct 20.5 % [facility] Comment: Interpretive Data Percent cell count reference ranges are not reported, since discordance with absolute values may lead to misinterpretation of CBC data. Current Interpretive Data was last revised on 2018. Monocyte pct 7.8 % [facility] Comment: Interpretive Data Percent cell count reference ranges are not reported, since discordance with absolute values may lead to misinterpretation of CBC data. Current Interpretive Data was last revised on 2018. Eosinophil pct 1.5 % [facility] Comment: Interpretive Data Percent cell count reference ranges are not reported, since discordance with absolute values may lead to misinterpretation of CBC data. Current Interpretive Data was last revised on 2018. Basophil pct 0.3 % [facility] Comment: Interpretive Data Percent cell count reference ranges are not reported, since discordance with absolute values may lead to misinterpretation of CBC data. Current Interpretive Data was last revised on 2018. Blood 12/19/2024 7:40 AM LEAD ASSEMBLER 12/19/2024 7:48 AM LEAD ASSEMBLER Hugo Nunez MD LAB BLOOD ORDERABLES Final Result Performing Organization Address [facility] de Phone Number [facility] [address] [address] * (ABNORMAL) CBC with auto differential (12/19/2024 7:40 AM LEAD ASSEMBLER) Pathologist [facility] WBC 8.9 3.8 - 9.9 K/cumm Hgb 13.0 11.9 - 15.5 g/dL [facility] Hct 40.5 35.6 - 45.5 % [facility] Plt 281 150 - 400 K/cumm [facility] MPV 11.1 9.1 - 12.3 fL [facility] RBC 4.40 3.90 - 5.20 M/cumm [facility] MCV 92.0 81.3 - 96.4 fL [facility] MCH 29.5 27.1 - 33.3 pg [facility] MCHC 32.1(L) 32.3 - 35.7 g/dL [facility] RDW CV 15.9(H) 11.1 - 14.9 % [facility] RDW SD 53.9(H) 35.7 - 48.1 fL [facility] NRBC abs 0.00 0.00 - 0.01 K/cumm [facility] Blood 12/19/2024 7:40 AM LEAD ASSEMBLER 12/19/2024 7:48 AM LEAD ASSEMBLER Hugo Nunez MD LAB BLOOD ORDERABLES Final Result Performing Organization Address City/[facility] Co de Phone Number ZEINA [address] [place] [address] * ABO/Rh (12/19/2024 7:40 AM LEAD ASSEMBLER) Pathologist [facility] ABO/Rh O Positive Blood 12/19/2024 7:40 AM LEAD ASSEMBLER 12/19/2024 7:46 AM LEAD ASSEMBLER Hugo Nunez MD LAB BLOOD BANK TEST ORDERAB LES Final Result Performing Organization Address [facility] Co de Phone Number ZEINA [address] [place] [address] * aPTT (12/19/2024 7:40 AM LEAD ASSEMBLER) Pathologist [facility] aPTT 23 22 - 37 sec Comment: Interpretive data aPTT test has not been evaluated for monitoring heparin therapy. The anti-Xa is the preferred test. Current interpretive data was last revised on 2019. Blood 12/19/2024 7:40 AM LEAD ASSEMBLER 12/19/2024 7:48 AM LEAD ASSEMBLER Hugo Nunez MD LAB BLOOD ORDERABLES Final Result Performing Organization Address [facility] de Phone Number [address] [address] * Protime-INR (12/19/2024 7:40 AM LEAD ASSEMBLER) Pathologist [facility] PT 12.9 12.0 - 14.6 sec INR 1.0 0.9 - 1.2 [facility] Comment: Ref Range High Interpretive data Oral anticoagulant therapeutic ranges: Venous thromboembolism prophylaxis or treatment: 2.0-3.0 CARDIOLOGY Standard range: 2.0-3.0 High-intensity range: 2.5-3.5 Refer to indication-specific guidelines for appropriate target ranges for prosthetic heart valve replacement. Current interpretive data was last revised on 2019. Blood 12/19/2024 7:40 AM LEAD ASSEMBLER 12/19/2024 7:48 AM LEAD ASSEMBLER Hugo Nunez MD LAB BLOOD ORDERABLES Final Result Performing Organization Address [facility] Co de Phone Number [address] [address] * Antibody screen (12/19/2024 7:40 AM LEAD ASSEMBLER) Ruddy, indirect, Gel Interpretation Negative ABSC Blood 12/19/2024 7:40 AM LEAD ASSEMBLER 12/19/2024 7:46 AM LEAD ASSEMBLER us Hugo Nunez MD LAB BLOOD BANK TEST ORDERAB LES Final Result [facility] [address] [facility] Department [place] [address] * Comprehensive metabolic panel (12/19/2024 7:40 AM LEAD ASSEMBLER) Sodium 140 135 - 145 mmol/L Potassium, pl 3.9 3.3 - 4.9 mmol/L [facility] Comment:Hemolyzed; Potassium value may be falsely elevated by as much as 1.0 mmol/L. Suggest redraw and reanalysis. Chloride 103 97 - 110 mmol/L [facility] CO2 23 22 - 32 mmol/L [facility] Anion gap 14 2 - 15 mmol/L [facility] BUN 20 6 - 25 mg/dL [facility] Creatinine 0.81 0.60 - 1.10 mg/dL [facility] Glucose 153 70 - 199 mg/dL [facility] Comment: Interpretive Data Fasting glucose >/= 126 [...] 2022. Calcium 9.9 8.5 - 10.3 mg/dL [facility] Bilirubin, total 0.2 0.1 - 1.2 mg/dL [facility] Protein, pl 7.5 6.5 - 8.5 g/dL [facility] Albumin 4.2 3.5 - 5.0 g/dL [facility] Alk phos 76 40 - 130 Units/L [facility] ALT 14 7 - 45 Units/L [facility] AST See Comment 10 - [facility] Comment:Credited; Hemolyzed Specimen Blood 12/19/2024 7:40 AM LEAD ASSEMBLER 12/19/2024 7:48 AM LEAD ASSEMBLER us Hugo Nunez MD LAB BLOOD ORDERABLES Final Result Performing Organization Address City/State/ZIP Co tx Phone Number ZEINA MH [address] [facility] Department [place] [address] from Last 3 Months Insurance IDPA T MEDICARE GOLD AETNA MEDICARE GOLD T MEDICARE GOLD Advance Directives For more information, please contact: [phone] * Full Code (Latest Code Status on [...] 3:08 AM 08/14/2024 4:56 PM Care Teams Shellac Polisher Relationship Specialty Start Date End Date Asif Donald MD [address] [address] PCP - General Emergency Medicine 08/22/24 Gracía Park MD [address] [place] [address] Surgeon Vascular Surgery 10/29/22 Terrance Pollard MD [address] [facility] [place] [address] Consulting Physician Cardiovascular Disease 03/16/23 Talat Walsh MD [address] [place] [address] Referring Physician Internal Medicine 03/16/23 Antonio Donaldson MD [address] [place] [address] Referring Physician Nephrology 12/13/24 Hugo Nunez MD [address] [place] [facility] [place] [address] Consulting Physician Vascular Surgery 12/19/24
--- OUTSIDE RECORDS SUMMARY | 2025-02-11 19:25 | XMS_ITS | Encounter Summary ---
Author Organization [facility] Facility Care Team Providers Care Plate Mounter Name Role Phone Basil Lua MD Primary Care Provider [phone] Asif Donald MD Primary Care Provider [phone] García Park MD Unavailable [phone] Terrance Pollard MD Unavailable Talat Walsh MD Unavailable [phone] Asif Donadl MD Primary Care Provider [phone] Antonio Donaldson MD Unavailable [phone] Hugo Nunez MD Unavailable [phone] Encounter Details Date Type Department Care Team (Latest Contact Info) Description 01/28/2017 Orders Only [facility] CLINCONV Provider, MD Shantell [address] [place] [address] Social History Tobacco Use Types Packs/Day [...] on filedocumented in this encounter Care Teams Plate Mounter Relationship Specialty Start Date End Date Basil Lua MD [address] [place] [address] PCP - General 01/03/19 03/22/19 Asif Donald MD [address] [place] [address] PCP - General 03/23/19 08/21/24 Asif Donald MD [address] [address] PCP - General Emergency Medicine 08/22/24 García Park MD [address] [place] [place] [address] Surgeon Vascular Surgery 10/29/22 Terrance Pollard MD [address] [place] [place] [address] Consulting Physician Cardiovascular Disease 03/16/23 Talat Walsh MD [address] [place] [address] [place] [address] Referring Physician Internal Medicine 03/16/23 Antonio Donaldson MD [address] [facility] [address] [facility] [address] [place] [address] Referring Physician Nephrology 12/13/24 Hugo Nunez MD [address] [facility] [address] [place] [address] Consulting Physician Vascular Surgery 12/19/24 documented as of this encounter
--- OUTSIDE RECORDS SUMMARY | 2025-02-11 19:25 | XMS_ITS | Encounter Summary ---
Author Organization [facility] Facility Care Team Providers Care Featheredger And Reducer Machine Name Role Phone Basil Lua MD Primary Care Provider [phone] Asif Donald MD Primary Care Provider [phone] García Park MD Unavailable [phone] Terrance Pollard MD Unavailable Talat Walsh MD Unavailable [phone] Asif Donald MD Primary Care Provider [phone] Antonio Donaldson MD Unavailable [phone] Hugo Nunez MD Unavailable [phone] Encounter Details Date Type Department Care Team (Latest Contact Info) Description 01/09/2018 Orders Only [facility] CLINCONV Provider, MD Shantell [address] [place] [address] Social History Tobacco Use Types Packs/Day [...] on filedocumented in this encounter Care Teams Featheredger And Reducer Machine Relationship Specialty Start Date End Date Basil Lua MD [address] [place] [address] PCP - General 01/03/19 03/22/19 Asif Donald MD [address] [place] [address] PCP - General 03/23/19 08/21/24 Asif Donald MD [address] [place] [address] PCP - General Emergency Medicine 08/22/24 García Park MD [facility] [address] [place] [address] [address] Surgeon Vascular Surgery 10/29/22 Terrance Pollard MD [facility] [address] [place] [address] [address] Consulting Physician Cardiovascular Disease 03/16/23 Talat Walsh MD [address] [place] [address] Referring Physician Internal Medicine 03/16/23 Antonio Donaldson MD [address] [address] Referring Physician Nephrology 12/13/24 Hugo Nunez MD [address] [facility] [address] [place] [address] Consulting Physician Vascular Surgery 12/19/24 documented as of this encounter
--- OUTSIDE RECORDS SUMMARY | 2025-02-11 19:25 | XMS_ITS | Clinical Summary ---
Author Organization [facility] Address [address], [place] [address] Phone Care Team Providers Care Computer Technical Specialist Name Role Phone Asif Donald MD Primary Care Provider [phone] Allergies Active Allergy Reactions Criticality Noted Date [...] 08/17/2021, 08/30/2019, 07/09/2018, Additional history exists Insurance [place] [employer] MEDICARE ADVANTAGE Care Teams Computer Technical Specialist Relationship Specialty Start Date End Date Asif Donald MD PCP - General Family Medicine 05/02/19
--- NOTE | 2025-02-11 19:31 | PC.NURSE ---
Assumed care of pt after receiving bedside report from Socorro @ 2065.
[2025-02-11] MEDS: AMOXICILLIN/CLAVULANATE K 875-125 MG TAB 1 TABLET PO (19:37)
[2025-02-11] MEDS: SODIUM CHLORIDE 0.9% IV 1,000 ML 999 ML IV CONT (19:38)
[2025-02-11] MEDS: AZITHROMYCIN 250 MG TABLET 500 MG PO (19:38)
[2025-02-11] MEDS: methylPREDNISolone SOD SUCC 125 MG VIAL IV PUSH (19:38)
[2025-02-11] MEDS: ALBUTEROL SULFATE NEB 2.5 MG/3 ML INH 5 MG INHALATION (19:45)
[2025-02-11 21:25] LABS: Add Urine Microscopic? YES; Appearance Urine Cloudy (Clear); Bacteria Urine None Seen /hpf; Bilirubin Urine Negative (Negative); Blood Urine Non-Hemolyzed Trace (Negative); Color Urine Yellow (Yellow); Glucose Urine UA Negative (Negative); Granular Casts Urine Present /lpf; Ketones Urine Negative (Negative); Leukocyte Esterase Ur Negative LEU/UL (Negative); Need Manual Microscopic Reviewed; Nitrate Urine Negative (Negative); Protein Urine 2+ mg/dL (Negative); RBC Urine 0-2 /hpf (0-2); Specific Grav Ur 1.005 (1.001-1.035); Squamous Epithelial Cell Urine Occasional /hpf (Few); Urobilinogen Urine 0.2 mg/dL (<2.0); WBC Urine 0-5 /hpf (0-3); pH Urine 7.5 (5.0-9.0)
== END 2025-02-11 21:23 | disposition home or self-care (01) ==
PROVIDERS: Physician Assistant; Emergency Provider Emergency Medicine; PCP Emergency Medicine
DX: J18.9 Pneumonia, unspecified organism (principal); J44.9 Chronic obstructive pulmonary disease, unspecified; Z20.822 Contact with and (suspected) exposure to COVID-19; I10 Essential (primary) hypertension; E11.9 Type 2 diabetes mellitus without complications; M19.90 Unspecified osteoarthritis, unspecified site
CPT/HCPCS: 36415; 71046; 80053; 81001; 85025; 87637; 93005; 94640; 96361; 96374; 99284; A9270; J2919; J7030

== ENCOUNTER 2025-05-22 17:26 | Emergency (ER) | payer MEDICARE, SELFPAY ==
--- NOTE | ~2025-05-22 | XR_ITS ---
HISTORY: left foot pain/possible fall-amputation / to COMPARISON: None TECHNIQUE: 3views of the left foot were performed FINDINGS: Post amputation of the first and second toes at the level of the distal shaft of the first and second metatarsal. No acute fracture is appreciated. Periarticular osteopenia is noted. Ossification of the insertion of the Achilles tendon is present. Small calcaneal spur is noted. No significant soft tissue swelling is present. IMPRESSION: No acute fracture, as detailed above. Reviewed, dictated and finalized at location A.
--- NOTE | 2025-05-22 17:27 | ED.EXTPRO ---
HPI - Extremity Problem General Chief complaint: Extremity Injury, Lower Stated complaint: Left Foot/Toes Pain Time Seen by Provider: 05/22/25 17:27 Source: patient Mode of arrival: ambulatory Limitations: no limitations History of Present Illness HPI Narrative: Ness is a 70 year old female patient presenting to the clinic today with c/o left foot/toe pain x 2 days. She reports she sleep walks and believe she fell when she was sleep walking and injured her foot. 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 Has pain to entire foot. Related Data Home Medications ?Medication ?Instructions ?Recorded ?Confirmed ?Last Taken ?Type amlodipine 10 mg tablet 10 mg PO DAILY 11/13/21 03/04/25 Unknown History glimepiride 2 mg tablet 2 mg PO DAILY 11/13/21 03/04/25 Unknown History calcium 600 mg (as 1 tablet PO DAILY 07/28/23 03/04/25 Unknown History carbonate)-vitamin D3 5 mcg (200 unit) tablet clopidogrel 75 mg tablet 75 mg PO DAILY 07/28/23 03/04/25 Unknown History acyclovir 800 mg tablet mg 05/22/25 Unknown History budesonide-formoterol HFA 160 inhalation 05/22/25 Unknown History mcg-4.5 mcg/actuation aerosol inhaler (Breyna) gabapentin 100 mg capsule mg 05/22/25 Unknown History Allergies Allergy/AdvReac Type Severity Reaction Status Date / Time codeine Allergy Intermediate Hives Verified 05/22/25 17:27 tramadol AdvReac Intermediate Vomiting Verified 05/22/25 17:27 Review of Systems Review of Systems: Pertinent positives per HPI. Patient denies any fever, chills, rash, headache, visual changes, dizziness, cough, runny nose, sore throat, shortness of breath, chest pain, palpitations, nausea, vomiting, diarrhea, constipation, abdominal pain, or any urinary issues. [facility] Past Medical History Medical History Cataract HTN (hypertension) Diabetes Osteoarthritis Surgical History Surgical History S/P epidural steroid injection Social History Social History Smoking status: Light tobacco smoker Alcohol intake: current Do You Feel Safe in your Home?: Yes Lack of Transportation: No Lack of Food: Often True Current Housing: I Have Housing Concerned About Future Housing: No Difficulty Paying Gas/Electric Bills: YES Difficulty Paying for Meds: No Currently Unemployed: Decline to Answer Education: High School Diploma/GED Difficulty w/ Childcare or Family Care: No Gender identity (if verbalized by the patient): Female Sexual Orientation (if Verbalized by the Patient): Straight or Heterosexual Comments At the time of my signature, I reviewed and agree with the nursing past medical, surgical, social, and family history. There is no relevant family history pertinent to the patient complaint. Exam Narrative: General: Well-developed, well nourished, in no apparent distress Head: Normocephalic, atraumatic. Cardio: Regular rate and rhythm, s1 and s2 normal, no murmur appreciated. Resp: Clear to auscultation bilaterally, no rhonchi, rales, wheezing or rubs. Musculoskeletal: No deformity, amputated great and 2nd toe of the left foot with healed incision, some redness noted over this area, tender to over the anterior, midfoot, medial, lateral and arch of foot to palpation, feels as though there is tightness over the midfoot, grossly normal range of motion, muscle strength strong and equal, peripheral pulse strong, no edema, no cyanosis, sitting in wheel chair, cap refill less than 3 seconds. Course Course Emergency Course: Portions of this record may have been created with voice recognition software. Level of Care: Express Care Visit Vital Signs Vital signs: Vital Signs Temperature 36.6 C 05/22/25 17:39 Pulse Rate 101 H 05/22/25 17:39 Respiratory Rate 16 05/22/25 17:39 Blood Pressure 138/76 05/22/25 17:39 Pulse Oximetry 98 05/22/25 17:39 Oxygen Delivery Room Air 05/22/25 17:39 Temperature 36.6 C 05/22/25 17:39 Pulse Rate 101 H 05/22/25 17:39 Respiratory Rate 16 05/22/25 17:39 Blood Pressure 138/76 05/22/25 17:39 Pulse Oximetry 98 05/22/25 17:39 Oxygen Delivery Room Air 05/22/25 17:39 Vital signs reviewed MDM - Extremity (Nontraumatic) MDM Narrative Medical decision making narrative: At the time of visit patient is resting comfortably on the exam table. Patient appears to be nontoxic. C/o left foot/toe pain x 2 days. She reports she sleep walks and believe she fell when she was sleep walking and injured her foot. 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 Has pain to entire foot. Patient is diabetic and takes Plavix. X-ray of the left foot was ordered Diagnostics: X-ray left foot shows no sign of acute fracture or malalignment. Plan: I suspect patient has an acute foot sprain/foot pain. Supportive measures were discussed with the patient and they voiced understanding discharge instructions and agrees to treatment plan. Return precautions reviewed Differential Diagnosis Differential diagnosis: Likely other (Foot fracture, foot sprain, soft tissue injury, phantom toe pain) Imaging Data Radiologist's impression: ITS Impressions Foot X-Ray 05/22/25 19:24 IMPRESSION: No acute fracture, as detailed above. Discharge Plan Discharge Clinical Impression: Acute pain of left foot Patient Disposition: Home Condition: Stable Instructions: Antibiotic Form, Foot Sprain (ED) Additional Instructions: No acute fracture or malalignment of the left foot. Rest, ice, elevate, and wear cleve wrap as directed Take 2 extra-strength Tylenol 3 times daily for pain as needed Gradually bear weight No running or sports until healed. Follow up with your PCP if symptoms persist more than 1 week. Patient Language: German Prescriptions: No Action glimepiride 2 mg tablet 2 mg PO DAILY amlodipine 10 mg tablet 10 mg PO DAILY acyclovir 800 mg tablet gabapentin 100 mg capsule budesonide-formoterol [Breyna] 160-4.5 mcg/actuation HFA aerosol inhaler INHALATION calcium carbonate-vitamin D3 600 mg-5 mcg (200 unit) tablet 1 tablet PO DAILY clopidogrel 75 mg tablet 75 mg PO DAILY losartan 100 mg tablet 100 mg PO DAILY Qty: 30 11RF pravastatin 40 mg tablet See Rx Instructions .ROUTE .COMPLEX Qty: 90 3RF Dose Instruction: Take 1 tablet by mouth once daily Rx Instructions: Take 1 tablet by mouth once daily Follow-up/Referrals: Asif Donald MD [Primary Care Provider] - Time of Disposition: 19:36 Quality [facility] Nursing Documentation ED NIHSS nursing documentation: reviewed/agree
[2025-05-22 17:39] VITALS: BP 138/76; PULSE 101; RESP 16; TEMP 36.6; O2SAT 98
== END 2025-05-22 19:55 | disposition home or self-care (01) ==
PROVIDERS: Emergency Provider Nurse Practitioner Family; PCP Emergency Medicine
DX: M79.672 Pain in left foot (principal); F17.200 Nicotine dependence, unspecified, uncomplicated; I10 Essential (primary) hypertension; E11.9 Type 2 diabetes mellitus without complications; Z79.84 Long term (current) use of oral hypoglycemic drugs; M19.90 Unspecified osteoarthritis, unspecified site
CPT/HCPCS: 73630; 99213; G0463